=== PATIENT | female | born 1940 | race Caucasian/White ===

== ENCOUNTER → 2016-07-08 | Outpatient (CLI) | payer MEDICARE ==
--- NOTE | 2016-07-08 15:25 | NM ---
EXAMINATION TYPE: NM bone scan whole body DATE OF EXAM: 07/08/2016 3:18 PM COMPARISON: 07/09/2011 HISTORY: Back pain Delayed whole-body scanning was performed following the injection of 27 mCi Tc 99m MDP. Images acqui red 4 hours post injection. FINDINGS: There is mild stable increased uptake involving the left L1 and L2 pedicles. Degenerative uptake abou t the bilateral shoulders left greater than right. Intense uptake about the patella bilaterally right greater than left also unchanged. No evidence for new increased uptake at this time. Degenerative up take about the wrists and hands. IMPRESSION: Stable degenerative type uptake as discussed above without evidence for new Intense uptake to suggest osseous lesion or fracture.
== END | disposition home or self-care (01) ==
LOC: RADNMMAIN 10:26
PROVIDERS: ATTEND Internal Medicine Hematology & Oncology
DX: C50.919 Malignant neoplasm of unspecified site of unspecified female breast (principal); M54.9 Dorsalgia, unspecified
CPT/HCPCS: 78306; A9503

== ENCOUNTER → 2018-01-21 | Outpatient (CLI) | payer MEDICARE, OTHER ==
--- NOTE | 2018-01-21 17:51 | NM ---
EXAMINATION TYPE: NM bone scan whole body DATE OF EXAM: 01/21/2018 COMPARISON: NONE HISTORY: Breast cancer, back pain Delayed whole-body scanning was performed following the injection of 24.2 mCi Tc 99m MDP. Images wer e acquired 3 hours post injection. FINDINGS: There is increased uptake at the shoulders which can be related to degenerative change. Left shoulder is increasing in radiotracer uptake. There is abnormal pain in this region, plain film correlation b e recommended. Metastasis is not excluded. Increased uptake within the wrists is likely degenerative in nature. Uptake at bilateral patella is likely degenerative in nature. There is some focal radiotracer accumulation within the posterior lumbar spine in the region of L1 an d L2. Some uptake is in the right aspect of the more anterior L4 level. These areas are less specific . Metastatic disease at this level could be considered. This exam is compared to 07/08/2016. The uptak e within the posterior left lumbar spine and anterior right lower lumbar spine was present previously without significant change suggesting this is more likely a benign process. IMPRESSION: 1. Lumbar spine uptake discussed above appear similar to the 2017 comparison suggesting a more benign process. 2. Additional areas of degenerative uptake discussed above, present previously
== END | disposition home or self-care (01) ==
LOC: RADNMMAIN 10:29
PROVIDERS: ATTEND Internal Medicine Hematology & Oncology
DX: C50.812 Malignant neoplasm of overlapping sites of left female breast (principal); R93.7 Abnormal findings on diagnostic imaging of other parts of musculoskeletal system
CPT/HCPCS: 78306; A9503

== ENCOUNTER → 2018-02-24 | Outpatient (CLI) | payer MEDICARE, OTHER ==
--- NOTE | 2018-02-24 13:42 | XR ---
EXAMINATION TYPE: XR shoulder complete LT DATE OF EXAM: 02/24/2018 COMPARISON: NONE HISTORY: Pain TECHNIQUE: Three views are submitted. FINDINGS: The osseous structures are intact. There is no acute fracture or dislocation. Diffuse osteopenia not ed and there is arthropathy of the glenohumeral joint and AC joint. Near complete loss of joint space the glenohumeral joint. Apical pleural thickening is incidentally noted. IMPRESSION: 1. Severe arthropathy. Recommend follow-up MRI.
== END | disposition home or self-care (01) ==
LOC: RADXRMAIN 13:19
PROVIDERS: ATTEND Family Medicine
DX: M19.012 Primary osteoarthritis, left shoulder (principal)

== ENCOUNTER → 2019-05-24 | Outpatient (CLI) | payer MEDICARE, OTHER ==
--- NOTE | 2019-05-24 15:59 | US ---
EXAMINATION TYPE: US venous doppler duplex UE LT DATE OF EXAM: 05/24/2019 COMPARISON: NONE CLINICAL HISTORY: R60.0 Edema - Left upper extremity. SIDE PERFORMED: LEFT IJV, SUBCLAVIAN, AXILLA, BRACHIAL, BASILIC, & CEPHALIC VEINS scanned. Left Arm: Negative for DVT Grayscale, color doppler, spectral doppler imaging performed of the deep veins of the left upper extr emity. There is normal flow, compressibility and vascular waveforms IMPRESSION: No sonographic evidence of deep venous thrombosis within the visualized left upper extrem ity. .
== END | disposition home or self-care (01) ==
LOC: RADUSWWP 15:17
PROVIDERS: ATTEND Family Medicine
DX: R60.0 Localized edema (principal)

== ENCOUNTER → 2020-01-12 | Outpatient (CLI) | payer MEDICARE, OTHER ==
--- NOTE | 2020-01-13 07:33 | NM ---
EXAMINATION TYPE: NM bone scan whole body DATE OF EXAM: 01/12/2020 COMPARISON: Whole body bone scan January 21, 2018. HISTORY: History of breast cancer. Delayed whole-body scanning was performed following the injection of 23.4 mCi Tc 99m MDP. Images acq uired 3 hours post injection. Whole body images in anterior posterior projection along with additiona l images of the neck thorax abdomen and upper pelvis and multiple oblique projections. FINDINGS: Stable increased radiotracer uptake left greater than right shoulders. New extravasation right cubita l fossa on current study. Persistent focal increased radiotracer uptake within the lumbar spine similar to prior. Normal excretion is seen. Mild uptake at level of knee joint is presumed degenerative in etiology. No new areas of suspicious increased radiotracer uptake. IMPRESSION: As above. Findings most likely on basis of degenerative change. CT chest 2014 and left sh oulder x-ray confirm advanced degenerative change left glenohumeral joint.
== END | disposition home or self-care (01) ==
LOC: RADNMMAIN 11:28
PROVIDERS: ATTEND Internal Medicine Hematology & Oncology
DX: M19.012 Primary osteoarthritis, left shoulder (principal); C50.312 Malignant neoplasm of lower-inner quadrant of left female breast; Z91.041 Radiographic dye allergy status
CPT/HCPCS: 78306; A9503

== ENCOUNTER 2021-02-26 16:32 | Inpatient (IN) | payer MEDICARE, OTHER ==
[2021-02-26] MEDS ORDERED: SODIUM CHLORIDE 0.9% 500 ML 500 ML IV STA (19:50)
[2021-02-26] MEDS ORDERED: AMPICILLIN-SULBACTAM 3 GM in SODIUM CHLORIDE 0.9% 100 ML IVPB STA (19:52)
--- NOTE | 2021-02-26 20:01 | ED ---
Skin/Abscess/FB HPI - General Chief complaint: Skin/Abscess/Foreign Body Stated complaint: lt arm infection Time Seen by Provider: 02/26/21 19:39 Source: patient, RN notes reviewed, old records reviewed Mode of arrival: ambulatory Limitations: no limitations - History of Present Illness Initial comments: Patient is an 80-year-old female, with history of COPD, hypertension, breast cancer, presenting to the emergency Department with complaints of a possible infection in her left arm. Patient states about one week ago she had a small skin tear on her left forearm, she thought it was healing okay. And then about 2-3 days ago her cat did have a small bite wound on her left forearm as well. She states today she noticed redness of her left arm extending up into the left side of her chest. 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 She is having some achiness of her left arm but no significant pain. She does have chronic left shoulder pain. She denies any fevers or chills. She did have an episode of nausea and vomiting this morning, her appetite has been lower today. She denies any chest pains or shortness of breath, no nausea at this time. She denies any headaches or blurry vision. She has no further complaints at this time. Upon arrival to the ER, her vitals are stable. - Related Data Home Medications Medication Instructions Recorded Confirmed Acetaminophen Tab [Tylenol Tab] 500 mg PO Q6H PRN 02/26/21 02/26/21 Allergies Allergy/AdvReac Type Severity Reaction Status Date / Time Iodinated Contrast Media Allergy Anaphylaxis Verified 02/26/21 20:51 [Iodinated Contrast Media - IV Dye] Tetracyclines Allergy Swelling Verified 02/26/21 20:51 venom-honey bee Allergy Rash/Hives Verified 02/26/21 20:51 [bee venom (honey bee)] primidone [From Mysoline] AdvReac Unknown Verified 02/26/21 20:51 Review of Systems ROS Statement: Those systems with pertinent positive or pertinent negative responses have been documented in the HPI. ROS Other: All systems not noted in ROS Statement are negative. Past Medical History Past Medical History: COPD, Hypertension Additional Past Medical History / Comment(s): breast cancer r breast 1993, left breast cancer 1999, chronic pulmonary edema History of Any Multi-Drug Resistant Organisms: None Reported Past Surgical History: Hysterectomy, Joint Replacement Additional Past Surgical History / Comment(s): bilateral mastectomy Past Psychological History: No Psychological Hx Reported Past Alcohol Use History: None Reported Past Drug Use History: None Reported General Exam - General Exam Comments Initial Comments: GENERAL: Patient is well-developed and well-nourished. Patient is nontoxic and in no acute distress. HEAD: Atraumatic, normocephalic. EYES: Pupils equal round and reactive to light, extraocular movements intact, sclera anicteric, conjunctiva are normal. Eyelids were unremarkable. ENT: Nares patent, oropharynx clear without exudates. Moist mucous membranes. NECK: Normal range of motion, supple without lymphadenopathy or JVD. LUNGS: Unlabored respirations. Breath sounds clear to auscultation bilaterally and eq ual. No wheezes rales or rhonchi. HEART: Regular rate and rhythm without murmurs, rubs or gallops. ABDOMEN: Soft, nontender, normoactive bowel sounds. No guarding, no rebound. No masses appreciated. : Deferred MUSCULOSKELETAL: Limited range of motion of the left shoulder secondary to chronic shoulder pain, chronic lymphedema of the left arm. [employer] Trapper strength is normal bilaterally. Neurovascular intact I lateral upper extremities. Rest of extremities with adequate strength and normal range of motion, no pitting or edema. No clubbing or cyanosis. NEUROLOGICAL: Patient is alert and oriented x 3. Motor and sensory are also intact. Cranial nerves II through XII grossly intact. Symmetrical smile. Normal speech, normal gait. PSYCH: Normal mood, normal affect. SKIN: Warm, Dry, normal turgor. Patient has significant erythema/warmth of the entire left arm extending up into the left shoulder and left chest. No open or draining wounds. There is a small cat bite wound to the left forearm however this is not open, no drainage. Limitations: no limitations Course Vital Signs 02/26/21 17:49 Temperature 98.2 F Pulse Rate 96 Respiratory 20 Rate Blood Pressure 146/76 O2 Sat by Pulse 97 Oximetry Medical Decision Making - Medical Decision Making Patient is an 80-year-old female with history of hypertension, COPD, chronic left upper extremity lymphedema secondary to breast cancer, presenting with an infection in the left arm secondary to possible Bite wound that happened 3-4 days ago. Vitals are stable, no fevers. Single episode of nausea and vomiting this morning. Patient has significant erythema and warmth of the entire left upper extremity and extends into the left side of the chest as well. Labs show a white count of 21,000, CRP 6.1, ESR is 28. Patient will be admitted for left arm cellulitis from cat bite. I did start patient on Unasyn for the cellulitis secondary to cat bite. Patient was also given some Zofran and fluids. Patient accepted by [facility] for Dr. Cali's group. Consult to infectious disease. Case discussed with Dr. Canela. - Lab Data Result diagrams: 02/26/21 19:58 02/26/21 19:58 Lab Results 02/26/21 02/26/21 02/26/21 Range/Units 19:58 19:58 19:58 WBC 21.9 H (3.8-10.6) k/uL RBC 4.79 (3.80-5.40) m/uL Hgb 13.6 (11.4-16.0) gm/dL Hct 42.6 (34.0-46.0) % MCV 89.1 (80.0-100.0) fL MCH 28.4 (25.0-35.0) pg MCHC 31.9 (31.0-37.0) g/dL RDW 13.5 (11.5-15.5) % Plt Count 321 (150-450) k/uL MPV 7.2 Neutrophils % 90 % Lymphocytes % 7 % Monocytes % 3 % Eosinophils % 0 % Basophils % 0 % Neutrophils # 19.6 H (1.3-7.7) k/uL Lymphocytes # 1.5 (1.0-4.8) k/uL Monocytes # 0.6 (0-1.0) k/uL Eosinophils # 0.1 (0-0.7) k/uL Basophils # 0.0 (0-0.2) k/uL ESR 28 H (0-20) mm/hr Sodium 136 L (137-145) mmol/L Potassium 4.0 (3.5-5.1) mmol/L Chloride 100 (98-107) mmol/L Carbon Dioxide 27 (22-30) mmol/L Anion Gap 9 mmol/L BUN 24 H (7-17) mg/dL Creatinine 0.71 (0.52-1.04) mg/dL Est GFR (CKD-EPI)AfAm >90 (>60 ml/min/1.73 sqM) Est GFR (CKD-EPI)NonAf 81 (>60 ml/min/1.73 sqM) Glucose 136 H (74-99) mg/dL Plasma Lactic Acid Chase 1.4 (0.7-2.0) mmol/L Calcium 9.8 (8.4-10.2) mg/dL Total Bilirubin 0.9 (0.2-1.3) mg/dL AST 38 H (14-36) U/L ALT 17 (4-34) U/L Alkaline Phosphatase 95 (38-126) U/L C-Reactive Protein 6.1 H (<1.0) mg/dL Total Protein 8.0 (6.3-8.2) g/dL Albumin 4.3 (3.5-5.0) g/dL Coronavirus (PCR) (Not Detectd) 02/26/21 Range/Units 19:58 WBC (3.8-10.6) k/uL RBC (3.80-5.40) m/uL Hgb (11.4-16.0) gm/dL Hct (34.0-46.0) % MCV (80.0-100.0) fL MCH (25.0-35.0) pg MCHC (31.0-37.0) g/dL RDW (11.5-15.5) % Plt Count (150-450) k/uL MPV Neutrophils % % Lymphocytes % % Monocytes % % Eosinophils % % Basophils % % Neutrophils # (1.3-7.7) k/uL Lymphocytes # (1.0-4.8) k/uL Monocytes # (0-1.0) k/uL Eosinophils # (0-0.7) k/uL Basophils # (0-0.2) k/uL ESR (0-20) mm/hr Sodium (137-145) mmol/L Potassium (3.5-5.1) mmol/L Chloride (98-107) mmol/L Carbon Dioxide (22-30) mmol/L Anion Gap mmol/L BUN (7-17) mg/dL Creatinine (0.52-1.04) mg/dL Est GFR (CKD-EPI)AfAm (>60 ml/min/1.73 sqM) Est GFR (CKD-EPI)NonAf (>60 ml/min/1.73 sqM) Glucose (74-99) mg/dL Plasma Lactic Acid Chase (0.7-2.0) mmol/L Calcium (8.4-10.2) mg/dL Total Bilirubin (0.2-1.3) mg/dL AST (14-36) U/L ALT (4-34) U/L Alkaline Phosphatase (38-126) U/L C-Reactive Protein (<1.0) mg/dL Total Protein (6.3-8.2) g/dL Albumin (3.5-5.0) g/dL Coronavirus (PCR) Not Detected (Not Detectd) Disposition Clinical Impression: Cellulitis of left upper extremity, Cat bite of left forearm Disposition: ADMITTED IP TO THIS HOSP Condition: Stable Decision Date: 02/26/21 Decision Time: 20:48
[2021-02-26 20:37] LABS: Basophils % (A) 0 %; Eosinophils # (A) 0.1 k/uL (0-0.7); Eosinophils % (A) 0 %; HCT 42.6 % (34.0-46.0); HGB 13.6 gm/dL (11.4-16.0); Lymphocytes # (A) 1.5 k/uL (1.0-4.8); Lymphocytes % (A) 7 %; MCH 28.4 pg (25.0-35.0); MCHC 31.9 g/dL (31.0-37.0); MCV 89.1 fL (80.0-100.0); Mean Platelet Volume 7.2; Monocytes # (A) 0.6 k/uL (0-1.0); Monocytes % (A) 3 %; Neutrophils # (A) 19.6 k/uL (1.3-7.7); Neutrophils % (A) 90 %; Platelet Count 321 k/uL (150-450); RBC 4.79 m/uL (3.80-5.40); RDW 13.5 % (11.5-15.5); WBC 21.9 k/uL (3.8-10.6)
[2021-02-26] MEDS ORDERED: NALOXONE 0.4 MG/ML 1 ML VIAL IV PRN (20:43)
[2021-02-26] MEDS ORDERED: ACETAMINOPHEN TAB 325 MG TAB PO PRN (20:43)
[2021-02-26 20:50] LABS: ALT 17 U/L (4-34); AST 38 U/L (14-36); African American GFR (CKD) >90 (>60 ml/min/1.73 sqM); Albumin 4.3 g/dL (3.5-5.0); Alkaline Phosphatase 95 U/L (38-126); Anion Gap 9 mmol/L; Blood Urea Nitrogen 24 mg/dL (7-17); C Reactive Protein 6.1 mg/dL (<1.0); Calcium 9.8 mg/dL (8.4-10.2); Carbon Dioxide 27 mmol/L (22-30); Chloride 100 mmol/L (98-107); Glucose 136 mg/dL (74-99); Non-African American GFR(CKD) 81 (>60 ml/min/1.73 sqM); Sodium 136 mmol/L (137-145); Total Bilirubin 0.9 mg/dL (0.2-1.3)
[2021-02-26 21:32] LABS: Erythrocyte Sedimentation Rate 28 mm/hr (0-20)
[2021-02-26] MEDS: SODIUM CHLORIDE 0.9% 1,000 ML IV SCH (22:25)
[2021-02-27] MEDS: ONDANSETRON 4 MG/2 ML VIAL IVP PRN ×2 (02:06→14:50)
[2021-02-27] MEDS: HYDROcodone/APAP 5-325MG 1 EACH TAB PO PRN (02:06)
[2021-02-27] MEDS: AMPICILLIN-SULBACTAM 3 GM in SODIUM CHLORIDE 0.9% 100 ML IVPB SCH ×4 (03:27→21:28)
[2021-02-27] MEDS: SODIUM CHLORIDE 0.9% 1,000 ML IV SCH ×2 (07:31→17:23)
[2021-02-27 12:21] LABS: Basophils % (A) 0 %; Eosinophils % (A) 0 %; HCT 42.7 % (34.0-46.0); HGB 13.7 gm/dL (11.4-16.0); Lymphocytes # (A) 1.6 k/uL (1.0-4.8); Lymphocytes % (A) 11 %; MCH 28.5 pg (25.0-35.0); MCHC 32.1 g/dL (31.0-37.0); MCV 88.8 fL (80.0-100.0); Mean Platelet Volume 7.2; Monocytes # (A) 0.4 k/uL (0-1.0); Monocytes % (A) 3 %; Neutrophils # (A) 12.4 k/uL (1.3-7.7); Neutrophils % (A) 85 %; Platelet Count 295 k/uL (150-450); RBC 4.81 m/uL (3.80-5.40); RDW 13.9 % (11.5-15.5); WBC 14.5 k/uL (3.8-10.6)
[2021-02-27] MEDS: MORPHINE SULFATE 2 MG/ML SYRINGE IV PRN (14:55)
[2021-02-27 15:38] LABS: African American GFR (CKD) >90 (>60 ml/min/1.73 sqM); Anion Gap 10 mmol/L; Blood Urea Nitrogen 18 mg/dL (7-17); Calcium 9.3 mg/dL (8.4-10.2); Carbon Dioxide 25 mmol/L (22-30); Chloride 106 mmol/L (98-107); Glucose 114 mg/dL (74-99); Non-African American GFR(CKD) 87 (>60 ml/min/1.73 sqM); Sodium 141 mmol/L (137-145)
[2021-02-27] MEDS: HEPARIN SODIUM,PORCINE/PF 5,000 UNIT/0.5 ML SYRINGE SQ SCH (21:28)
--- NOTE | 2021-02-28 00:50 | P.HPIM ---
History of Present Illness H&P Date: 02/27/21 Patient is a 80-year-old female with a known history of hypertension, COPD, history of breast cancer status post bilateral mastectomy presents to ER with the complaints of left arm swelling redness and pain. Patient states that about a 1 week ago patient had a small skin tear on her left forearm and during the last 2 to 3 days patient had a small bite by her cat on the left forearm as well. Since then patient has been having worsening redness and swelling. Patient does have chronic left arm lymphedema secondary to left breast cancer with left axillary lymph node removal. Otherwise denied any complaints of fever or chills. No nausea vomiting or abdominal pain or diarrhea. Denied any other recent illnesses. No cough or sputum production. Lab data showed WBC 21.9 and hemoglobin 13.6 and platelets 321 Sodium 136 potassium 4.0 chloride 100 BUN 24 and creatinine 0.71 blood sugar is 136 AST 38 ALT 17 and alk phos 95. CRP 6.1 and coronavirus PCR not detected. Review of Systems Constitutional: Patient denies any fever or chills . No generalized weakness or weight loss. Abdomen: Patient denied nausea vomiting and diarrhea and abdominal pain. Cardiovascular: Patient denies any chest pain or short of breath no palpitations. Respiratory: patient denied any cough or sputum production. No shortness of breath Neurologic: Patient denied any numbness or tingling headache. Musculoskeletal: Patient denies any complaints of joint swelling or deformity. Skin: Left forearm pain and redness. Psychiatric: Negative Endocrine: No heat or cold intolerance. No recent weight gain. Genitourinary: No dysuria or hematuria. All other 14 point ROS negative except the above Past Medical History Past Medical History: COPD, Hypertension Additional Past Medical History / Comment(s): breast cancer r breast 1993, left breast cancer 1999, chronic pulmonary edema History of Any Multi-Drug Resistant Organisms: None Reported Past Surgical History: Hysterectomy, Joint Replacement Additional Past Surgical History / Comment(s): bilateral mastectomy Past Psychological History: No Psychological Hx Reported Past Alcohol Use History: None Reported Past Drug Use History: None Reported Medications and Allergies Home Medications Medication Instructions Recorded Confirmed Type Acetaminophen Tab [Tylenol Tab] 500 mg PO Q6H PRN 02/26/21 02/26/21 History Allergies Allergy/AdvReac Type Severity Reaction Status Date / Time Iodinated Contrast Media Allergy Anaphylaxis Verified 02/26/21 20:51 [Iodinated Contrast Media - IV Dye] Tetracyclines Allergy Swelling Verified 02/26/21 20:51 venom-honey bee Allergy Rash/Hives Verified 02/26/21 20:51 [bee venom (honey bee)] primidone [From Mysoline] AdvReac Unknown Verified 02/26/21 20:51 Physical Exam Vitals: Vital Signs Temp Pulse Resp BP Pulse Ox 02/27/21 11:04 97.6 F 76 16 124/62 95 02/27/21 07:32 97.9 F 02/27/21 06:58 77 18 119/58 94 L 02/27/21 01:52 92 18 143/75 94 L 02/26/21 17:49 98.2 F 96 20 146/76 97 Intake and Output 02/26/21 02/27/21 02/27/21 22:59 06:59 14:59 Other: Weight 74.843 kg PHYSICAL EXAMINATION: Patient is lying in the bed comfortably, no acute distress, awake alert and oriented.. HEENT: Normocephalic. Neck is supple. Pupils reactive. Nostrils clear. Oral cavity is moist. Neck reveals no JVD, carotid bruits, or thyromegaly. CHEST EXAMINATION: Trachea is central. Symmetrical expansion. Lung neely clear to auscultation and percussion. CARDIAC: Normal S1, S2 with no gallops. No murmurs ABDOMEN: Soft. Bowel sounds normal. No organomegaly. No abdominal bruits. Extremities: reveal no edema. No clubbing or cyanosis Neurologically awake, alert, oriented x3 with well-coordinated movements. No focal deficits noted Skin: Patient does have erythema around the left forearm and elbow region. Does have chronic lymphedema of the left forearm. No purulent drainage. Small cat bite wound on the left forearm noted.. Psychiatric: Cooperative. Nonsuicidal Musculoskeletal: No joint swelling or deformity. Normal range of motion. Results CBC & Chem 7: 02/27/21 11:54 02/27/21 11:54 Labs: Abnormal Lab Results - Last 24 Hours (Table) 02/26/21 02/26/21 Range/Units 19:58 19:58 WBC 21.9 H (3.8-10.6) k/uL Neutrophils # 19.6 H (1.3-7.7) k/uL ESR 28 H (0-20) mm/hr Sodium 136 L (137-145) mmol/L BUN 24 H (7-17) mg/dL Glucose 136 H (74-99) mg/dL AST 38 H (14-36) U/L C-Reactive Protein 6.1 H (<1.0) mg/dL Thrombosis Risk Factor Assmnt - DVT/VTE Prophylaxis DVT/VTE Prophylaxis: Pharmacologic Prophylaxis ordered Assessment and Plan Assessment: Left forearm extensive cellulitis Sepsis secondary to cellulitis Cat bite/scratch 2 days ago Chronic left upper extremity lymphedema History of breast cancer status postmastectomy Hypertension COPD DVT prophylaxis Plan: Patient will be current on IV hydration and antibiotics in the form of Unasyn. Follow-up blood cultures. Continue with pain management with Tylenol. Monitor CBC and BMP tomorrow. Time with Patient: Greater than 30
[2021-02-28] MEDS: HYDROcodone/APAP 5-325MG 1 EACH TAB PO PRN ×2 (01:24→21:54)
[2021-02-28] MEDS: AMPICILLIN-SULBACTAM 3 GM in SODIUM CHLORIDE 0.9% 100 ML IVPB SCH ×4 (04:40→20:06)
[2021-02-28] MEDS: SODIUM CHLORIDE 0.9% 1,000 ML IV SCH ×3 (04:55→23:26)
[2021-02-28 06:37] LABS: Basophils % (A) 0 %; Eosinophils # (A) 0.1 k/uL (0-0.7); Eosinophils % (A) 1 %; HCT 35.3 % (34.0-46.0); HGB 11.2 gm/dL (11.4-16.0); Lymphocytes # (A) 1.6 k/uL (1.0-4.8); Lymphocytes % (A) 17 %; MCH 28.7 pg (25.0-35.0); MCHC 31.7 g/dL (31.0-37.0); MCV 90.6 fL (80.0-100.0); Mean Platelet Volume 7.7; Monocytes # (A) 0.5 k/uL (0-1.0); Monocytes % (A) 5 %; Neutrophils # (A) 6.9 k/uL (1.3-7.7); Neutrophils % (A) 75 %; Platelet Count 264 k/uL (150-450); RDW 13.7 % (11.5-15.5); WBC 9.2 k/uL (3.8-10.6)
--- NOTE | 2021-02-28 08:33 | US ---
EXAMINATION TYPE: US venous doppler duplex UE LT DATE OF EXAM: 02/28/2021 COMPARISON: US 2019 CLINICAL HISTORY: swelling. Redness and swelling left arm- pt states she was scratched and bit by her cat left arm SIDE PERFORMED: Left Grayscale, color Doppler, spectral Doppler imaging performed of the deep veins of the left upper stom ach. Visualized left internal jugular vein, subclavian vein, axillary vein, brachial vein, cephalic a nd radial veins compress normally and show no abnormal luminal echoes. There are subcutaneous edema c hannels noted in the left arm. Left Arm: Negative for DVT, unable to visualize left basilic and ulnar veins due to pt unable to move left arm IMPRESSION: No evident deep venous thrombosis in the left upper extremity, there are limitations as described
[2021-02-28] MEDS: HEPARIN SODIUM,PORCINE/PF 5,000 UNIT/0.5 ML SYRINGE SQ SCH ×2 (09:24→20:06)
--- NOTE | 2021-02-28 11:12 | P.CONS ---
History of Present Illness - Reason for Consult Consult date: 02/27/21 left arm cellulitis Requesting physician: Marco Renteria - Chief Complaint left arm swelling and redness x days - History of Present Illness History of Present Illness : Patient is 80-year-old female with a past medical history difficult for COPD breast cancer presenting to the ER yesterday for evaluation of left upper extremity swelling and redness that have been getting worse over the last few days patient did mention her cat he did nibble on the left forearm and the 2 small skin tear however she did have redness even prior to that subsequently she noted redness to start getting worse and did have more swelling to the left arm patient did have some dull aching pain 4-5 out of 10 in radiation with the symptom the patient was evaluated by the ER physician on arrival to the ER patient was afebrile patient did have white count of 21 point 9 repeat is 14.5 with a left shift creatinine has been normal patient has been started on Unasyn infectious he was consulted for further management of antibiotic therapy Review of system: CONSTITUTIONAL: Positive for weakness low-grade fever. EYES: No complaint. ENT: No complaint. RESPIRATORY: No complaint. CARDIOVASCULAR: No complaint. GENITOURINARY: No complaint. GASTROINTESTINAL: No complaint. MUSCULOSKELETAL: No complaint. INTEGUMENTARY : As per history of present illness. PSYCHOLOGIC: No complaint. ENDOCRINE: No complaint. NEUROLOGIC: No complaint. Past medical history : Reviewed, documented below Past surgical history : Reviewed, documented below Social history: Reviewed, documented below Medications: Reviewed, as documented below EXAMINATION: Vital sigans= Reviewed and documented below GENERAL DESCRIPTION: Elderly female lying in bed, no distress. No tachypnea or accessory muscle of respiration use. HEENT: Shows Pallor , no scleral icterus. Oral mucous membrane is dry. NECK: Trachea central, no thyromegaly. LUNGS: Unlabored breathing. Clear to auscultation anteriorly. No wheeze or crackle. HEART: S1, S2, regular rate and rhythm. ABDOMEN: Soft, no tenderness , guarding or rigidity EXTREMITIES: No edema feet SKIN: Extensive swelling redness of the left upper extremity which is warm to touch no evidence of any skin breakdown or drainage NEUROLOGICAL: The patient is awake, alert, oriented x3, mood and affect normal. LABS AND RADIOLOGY: Reviewed results see below Assessment : Patient presented hospital with extensive left upper extremity cellulitis in this patient who did have lymphedema to the left upper extremity and history of breast cancer more likely the risk factor patient may have small's bite on the left arm forearm from her cat but she did have redness prior to that and will need to cover for the gram-positive skin oli to be the likely pathogen Plan: 1-Unasyn 3 g every 6 hours to continue 2-keep the left arm elevated 3-await the ultrasound of the left upper extremity We will follow on clinical condition and cultures to further adjust medication if needed Thank you for this consultation we will follow the patient along with you Past Medical History Past Medical History: COPD, Hypertension Additional Past Medical History / Comment(s): breast cancer r breast 1993, left breast cancer 1999, chronic pulmonary edema, right breast removed in 1993, left breast removed 2011 History of Any Multi-Drug Resistant Organisms: None Reported Past Surgical History: Cholecystectomy, Hysterectomy, Joint Replacement Additional Past Surgical History / Comment(s): bilateral mastectomy, bilater knee replacement Past Psychological History: No Psychological Hx Reported Smoking Status: Never smoker Past Alcohol Use History: None Reported Past Drug Use History: None Reported Medications and Allergies Home Medications Medication Instructions Recorded Confirmed Type Acetaminophen Tab [Tylenol Tab] 500 mg PO Q6H PRN 02/26/21 02/26/21 History Allergies Allergy/AdvReac Type Severity Reaction Status Date / Time Iodinated Contrast Media Allergy Anaphylaxis Verified 02/26/21 20:51 [Iodinated Contrast Media - IV Dye] Tetracyclines Allergy Swelling Verified 02/26/21 20:51 venom-honey bee Allergy Rash/Hives Verified 02/26/21 20:51 [bee venom (honey bee)] primidone [From Mysoline] AdvReac Unknown Verified 02/26/21 20:51 Physical Exam Vitals: Vital Signs Temp Pulse Resp BP Pulse Ox 02/27/21 11:04 97.6 F 76 16 124/62 95 02/27/21 07:32 97.9 F 02/27/21 06:58 77 18 119/58 94 L 02/27/21 01:52 92 18 143/75 94 L Intake and Output 02/27/21 02/27/21 02/27/21 06:59 14:59 22:59 Other: Voiding Method Toilet Diaper Weight 74.843 kg Results CBC & Chem 7: 02/28/21 05:47 02/27/21 11:54 Labs: Abnormal Lab Results - Last 24 Hours (Table) 02/27/21 02/27/21 Range/Units 11:54 11:54 WBC 14.5 H (3.8-10.6) k/uL Neutrophils # 12.4 H (1.3-7.7) k/uL BUN 18 H (7-17) mg/dL Glucose 114 H (74-99) mg/dL Microbiology - Last 24 Hours (Table) 02/26/21 19:58 Blood Culture - Preliminary Blood No Growth after 24 hours
--- NOTE | 2021-02-28 14:57 | PN ---
PROGRESS NOTE DATE OF SERVICE: 02/28/2021 REASON FOR FOLLOWUP: Left upper extremity cellulitis. INTERVAL HISTORY: Patient is afebrile. The patient is breathing comfortably. Denies having any chest pain, shortness of breath, cough. Left upper extremity swelling has slightly decreased. No abdominal pain or diarrhea. PHYSICAL EXAMINATION: Blood pressure 143/79 with pulse of 80, temperature 98.1. She is 92% on room air. General description is an elderly female up in the chair in no distress. Respiratory system: Unlabored breathing, clear to auscultation anteriorly. Heart S1, S2. Regular rate and rhythm. Abdomen soft, no tenderness. Left upper extremity swelling and redness has decreased. LABORATORY DATA: Hemoglobin 11.1, white count 9.0. was negative for DVT. DIAGNOSTIC IMPRESSION AND PLAN: Patient with acute left lower extremity cellulitis. Patient had overall improvement on Unasyn to continue while monitoring clinical course closely and continue supportive care. MMODL / IJN: [id number] /
[2021-02-28] MEDS: ONDANSETRON 4 MG/2 ML VIAL IVP PRN (15:18)
[2021-02-28 17:10] LABS: African American GFR (CKD) 100.6 (60.0-200.0); Anion Gap 14.2 mmol/L (4.00-12.00); BUN/Creat Ratio 25.13 Ratio (12.00-20.00); Blood Urea Nitrogen 14.7 mg/dL (9.0-27.0); Calcium 8.3 mg/dL (8.7-10.3); Non-African American GFR(CKD) 86.8 (60.0-200.0); Potassium 3.9 mmol/L (3.5-5.5)
[2021-03-01] MEDS: MORPHINE SULFATE 2 MG/ML SYRINGE IV PRN (00:02)
[2021-03-01] MEDS: SODIUM CHLORIDE 0.9% 1,000 ML IV SCH (03:57)
[2021-03-01] MEDS: AMPICILLIN-SULBACTAM 3 GM in SODIUM CHLORIDE 0.9% 100 ML IVPB SCH ×3 (03:58→14:33)
[2021-03-01 04:52] VITALS: TEMP 98.2
[2021-03-01] MEDS: HEPARIN SODIUM,PORCINE/PF 5,000 UNIT/0.5 ML SYRINGE SQ SCH (08:19)
[2021-03-01 11:52] VITALS: BP 157/91; PULSE 79; RESP 18
--- NOTE | 2021-03-01 14:47 | PN ---
PROGRESS NOTE DATE OF SERVICE: 03/01/2021 REASON FOR FOLLOWUP: Left arm cellulitis. INTERVAL HISTORY: The patient is afebrile. The patient is currently breathing comfortably. Denies having any chest pain or shortness of breath or cough. No abdominal pain. Overall pain and discomfort to the left upper extremity has improved. PHYSICAL EXAMINATION: Blood pressure 157/99 with a pulse of 60, temperature 98.2. She is 93% on room air. General description is an elderly female lying in bed in no distress. RESPIRATORY SYSTEM: Unlabored breathing. Clear to auscultation anteriorly. HEART: S1, S2. Regular rate and rhythm. ABDOMEN: Soft. No tenderness. Left upper extremity redness has much improved LABS: White count normalized at 15. Blood cultures remain negative. DIAGNOSTIC IMPRESSION AND PLAN: Patient with a left upper extremity cellulitis clinically improved on Unasyn, to finish therapy with oral Augmentin x 7 days and close outpatient followup. MMODL / IJN: [id number] / MTDD
--- NOTE | 2021-03-18 23:25 | P.PN ---
Subjective Progress Note Date: 02/28/21 Patient is a 80-year-old female with a known history of hypertension, COPD, history of breast cancer status post bilateral mastectomy presents to ER with the complaints of left arm swelling redness and pain. Patient states that about a 1 week ago patient had a small skin tear on her left forearm and during the last 2 to 3 days patient had a small bite by her cat on the left forearm as well. Since then patient has been having worsening redness and swelling. Patient does have chronic left arm lymphedema secondary to left breast cancer with left axillary lymph node removal. Otherwise denied any complaints of fever or chills. No nausea vomiting or abdominal pain or diarrhea. Denied any other recent illnesses. No cough or sputum production. Lab data showed WBC 21.9 and hemoglobin 13.6 and platelets 321 Sodium 136 potassium 4.0 chloride 100 BUN 24 and creatinine 0.71 blood sugar is 136 AST 38 ALT 17 and alk phos 95. CRP 6.1 and coronavirus PCR not detected. 02/28/2021 Patient still having left arm swelling but improving. Venous duplex was ordered to rule out DVT which is negative. Patient is being cannula antibiotics IV as per ID recommendations. Patient has been afebrile. Appears to be more awake and oriented today. Patient does have chronic left upper extremity swelling from previous surgery. Redness is improved as well. No nausea vomiting or abdominal pain or diarrhea. No chest pain or shortness of breath. Current medications reviewed. Objective - Vital Signs Vital signs: Vital Signs Temp 98.3 F 02/28/21 20:26 Pulse 85 02/28/21 20:26 Resp 18 02/28/21 20:26 BP 164/94 02/28/21 20:26 Pulse Ox 98 02/28/21 20:26 Intake & Output 02/28/21 02/28/21 03/01/21 06:59 18:59 06:59 Intake Total 1400 Balance 1400 Intake: Intake, IV Titration 1400 Amount Ampicillin-Sulbactam 3 gm 200 In Sodium Chloride 0.9% 100 ml @ 200 mls/hr IVPB Q6H [facility] Rx#:[id number] Sodium Chloride 0.9% 1, 1200 000 ml @ 100 mls/hr IV . Q10H [facility] Rx#:[id number] Other: Voiding Method Toilet Toilet Diaper Diaper # Voids 2 1 - Exam PHYSICAL EXAMINATION: Patient is lying in the bed comfortably, no acute distress, awake alert and oriented.. HEENT: Normocephalic. Neck is supple. Pupils reactive. Nostrils clear. Oral cavity is moist. Neck reveals no JVD, carotid bruits, or thyromegaly. CHEST EXAMINATION: Trachea is central. Symmetrical expansion. Lung neely clear to auscultation and percussion. CARDIAC: Normal S1, S2 with no gallops. No murmurs ABDOMEN: Soft. Bowel sounds normal. No organomegaly. No abdominal bruits. Extremities: reveal no edema. No clubbing or cyanosis Neurologically awake, alert, oriented x3 with well-coordinated movements. No focal deficits noted Skin: Patient does have erythema around the left forearm and elbow region. Does have chronic lymphedema of the left forearm. No purulent drainage. Small cat bite wound on the left forearm noted.. Psychiatric: Cooperative. Nonsuicidal Musculoskeletal: No joint swelling or deformity. Normal range of motion. - Labs CBC & Chem 7: 02/28/21 05:47 02/28/21 05:47 Labs: Abnormal Lab Results - Last 24 Hours (Table) 02/28/21 02/28/21 Range/Units 05:47 05:47 Hgb 11.2 L (11.4-16.0) gm/dL Carbon Dioxide 19.0 L (21.6-31.8) mmol/L Anion Gap 14.20 H (4.00-12.00) mmol/L BUN/Creatinine Ratio 25.13 H (12.00-20.00) Ratio Calcium 8.3 L (8.7-10.3) mg/dL Microbiology - Last 24 Hours (Table) 02/26/21 19:58 Blood Culture - Preliminary Blood No Growth after 24 hours Assessment and Plan Assessment: Left forearm extensive cellulitis Sepsis secondary to cellulitis Cat bite/scratch 2 days ago Chronic left upper extremity lymphedema History of breast cancer status postmastectomy Hypertension COPD DVT prophylaxis Plan: Patient will be current on IV hydration and antibiotics in the form of Unasyn. Follow-up blood cultures. Continue with pain management with Tylenol. Monitor CBC and BMP tomorrow.
--- NOTE | 2021-03-18 23:27 | P.DS ---
Providers Date of admission: 02/26/21 21:16 Expected date of discharge: 03/01/21 Attending physician: Diaz Cali Consults: 02/26/21 20:44 Consult Physician Urgent Consulting Provider: Arturo Oliveira Consult Reason/Comments: Left arm cellulitis/cat bite Do you want consulting provider notified?: Yes Primary care physician: Last [facility] Course: Discharge diagnosis Left forearm extensive cellulitis Sepsis secondary to cellulitis Cat bite/scratch 2 days ago Chronic left upper extremity lymphedema History of breast cancer status postmastectomy Hypertension COPD DVT prophylaxis Hospital course Patient is a 80-year-old female with a known history of hypertension, COPD, history of breast cancer status post bilateral mastectomy presents to ER with the complaints of left arm swelling redness and pain. Patient states that about a 1 week ago patient had a small skin tear on her left forearm and during the last 2 to 3 days patient had a small bite by her cat on the left forearm as well. Since then patient has been having worsening redness and swelling. Patient does have chronic left arm lymphedema secondary to left breast cancer with left axillary lymph node removal. Otherwise denied any complaints of fever or chills. No nausea vomiting or abdominal pain or diarrhea. Denied any other recent illnesses. No cough or sputum production. Lab data showed WBC 21.9 and hemoglobin 13.6 and platelets 321 Sodium 136 potassium 4.0 chloride 100 BUN 24 and creatinine 0.71 blood sugar is 136 AST 38 ALT 17 and alk phos 95. CRP 6.1 and coronavirus PCR not detected. 02/28/2021 Patient still having left arm swelling but improving. Venous duplex was ordered to rule out DVT which is negative. Patient is being cannula antibiotics IV as per ID recommendations. Patient has been afebrile. Appears to be more awake and oriented today. Patient does have chronic left upper extremity swelling from previous surgery. Redness is improved as well. No nausea vomiting or abdominal pain or diarrhea. No chest pain or shortness of breath. 03/01/2021 Patient is currently resting in the bed comfortably. Left arm redness is much improved. No complaints of pain. No fever no chills. No other acute overnight issues. Doppler scan is negative for DVT. Patient is being continued on IV antibiotics and will be changed to by mouth and completed antibiotic course. Patient is cleared from ID standpoint. Discharge physical examination was done and vitals reviewed. Patient Condition at Discharge: Stable Plan - Discharge Summary Discharge Rx Participant: Yes New Discharge Prescriptions: New Amoxicillin/Potassium Clav [Augmentin 875-125 Tablet] 1 tab PO Q12HR 7 Days #14 tab Continue Acetaminophen Tab [Tylenol] 500 mg PO Q6H PRN PRN Reason: Pain Or Fever > 100.5 Discharge Medication List Acetaminophen Tab [Tylenol] 500 mg PO Q6H PRN 02/26/21 [History] Amoxicillin/Potassium Clav [Augmentin 875-125 Tablet] 1 tab PO Q12HR 7 Days #14 tab 03/01/21 [Rx] Follow up Appointment(s)/Referral(s): Last Horowitz DO [Primary Care Provider] - 03/05/21 11:00 am (You will see Gloria the [employer] if this appointment does not work please call and reschedule.) Arturo Oliveira MD [STAFF PHYSICIAN] - 03/12/21 2:45 pm Patient Instructions/Handouts: Amoxicillin/Clavulanate Potassium (By mouth), Animal Bite (DC), Cellulitis (DC) Discharge Disposition: HOME SELF-CARE
== END 2021-03-01 18:18 | disposition home or self-care (01) | DRG 872 ==
LOC: EC 16:32 → 5NMEDONC 21:16
PROVIDERS: ADMIT Hospitalist; ATTEND Hospitalist
DX: A41.9 Sepsis, unspecified organism (principal); L03.114 Cellulitis of left upper limb; L03.116 Cellulitis of left lower limb; G89.29 Other chronic pain; I10 Essential (primary) hypertension; I89.0 Lymphedema, not elsewhere classified; Z20.822 Contact with and (suspected) exposure to COVID-19; J44.9 Chronic obstructive pulmonary disease, unspecified; S51.852A Open bite of left forearm, initial encounter; W55.01XA Bitten by cat, initial encounter; Z85.3 Personal history of malignant neoplasm of breast; Z90.13 Acquired absence of bilateral breasts and nipples; Z90.710 Acquired absence of both cervix and uterus; Z96.653 Presence of artificial knee joint, bilateral
CPT/HCPCS: 36415; 80048; 80053; 83605; 85025; 85652; 86140; 87040; 87635; 96365; 99284

== ENCOUNTER → 2022-03-19 | Outpatient (CLI) | payer MEDICARE, OTHER ==
[2022-03-19 18:06] LABS: Basophils # (A) 0.03 X 10*3/uL (0.00-0.10); Basophils % (A) 0.5 %; Eosinophils # (A) 0.15 X 10*3/uL (0.04-0.35); Eosinophils % (A) 2.5 %; HCT 41.8 % (37.2-46.3); Immature Grans, Automated 0.3 %; Lymphocytes # (A) 1.59 X 10*3/uL (0.90-5.00); Lymphocytes % (A) 26.1 %; MCH 27.4 pg (27.0-32.0); MCHC 31.1 g/dL (32.0-37.0); MCV 88.2 fL (80.0-97.0); Mean Platelet Volume 9.6 fL (9.5-12.2); Monocytes # (A) 0.51 X 10*3/uL (0.20-1.00); Monocytes % (A) 8.4 %; NRBC Per 100 WBC 0 /100 WBCS (0.0-0.0); Neutrophils % (A) 62.2 %; Platelet Count 307 X 10*3/uL (140-440); RBC 4.74 X 10*6/uL (4.10-5.20)
[2022-03-19 18:37] LABS: African American GFR (CKD) 99.6 (60.0-200.0); Blood Urea Nitrogen 15.2 mg/dL (9.0-27.0); Carbon Dioxide 26.4 mmol/L (20.0-27.5); Potassium 4.4 mmol/L (3.5-5.5)
== END | disposition home or self-care (01) ==
LOC: LABPAT 13:34
PROVIDERS: ATTEND Obstetrics & Gynecology
DX: Z01.818 Encounter for other preprocedural examination (principal); I10 Essential (primary) hypertension; N81.11 Cystocele, midline; R94.31 Abnormal electrocardiogram [ECG] [EKG]
CPT/HCPCS: 80051; 82565; 84520; 85025; 87086; 93005

== ENCOUNTER → 2022-10-29 | Outpatient (CLI) | payer MEDICARE, OTHER ==
--- NOTE | 2022-10-31 11:00 | NM ---
EXAMINATION TYPE: NM DatScan Brain SPECT DATE OF EXAM: 10/29/2022 COMPARISON: NONE HISTORY: Tremors TECHNIQUE: 10 drops of Lugol's solution was administered 1 hour prior to injection as a thyroid bloc kanu agent. After the administration of 4.45 mCi I-123 Ioflupane DaTscan. Images obtained 3 hours p ost injection. SPECT images of the brain were acquired with axial and coronal reconstructions. FINDINGS: The axial SPECT images demonstrate normal background activity. Accounting for head tilt, t here appears to be slight asymmetrically blunted comma-shaped appearance of the right corpus striatum . IMPRESSION: Slightly blunted striatal activity on the right may indicate early changes of idiopathic Parkinson's disease or Parkinsonian syndrome.
== END | disposition home or self-care (01) ==
LOC: RADNMMAIN 11:10
PROVIDERS: ATTEND Psychiatry & Neurology Neurology
DX: R25.1 Tremor, unspecified (principal); R25.9 Unspecified abnormal involuntary movements
CPT/HCPCS: 78803; A9584

== ENCOUNTER → 2023-04-03 | Outpatient (CLI) | payer MEDICARE, OTHER ==
[~2023-04-03] MED LIST: SODIUM CHLORIDE 0.9% 500 ML 500 ML in EMPTY BAG 1 BAG IV PRN; ZOLEDRONIC ACID 5 MG in SODIUM CHLORIDE 0.9% 100 ML IV NR
== END ==
LOC: PROCWHC3 11:21
PROVIDERS: ATTEND Family Medicine
DX: M81.0 Age-related osteoporosis without current pathological fracture (principal)
CPT/HCPCS: 96365; J3489

== ENCOUNTER → 2023-06-06 | Outpatient (CLI) | payer MEDICARE, OTHER ==
[2023-06-06 18:25] LABS: Basophils # (A) 0.04 X 10*3/uL (0.00-0.10); Basophils % (A) 0.6 %; Eosinophils # (A) 0.13 X 10*3/uL (0.04-0.35); HCT 41.1 % (37.2-46.3); HGB 12.8 g/dL (12.0-15.0); Lymphocytes # (A) 1.35 X 10*3/uL (0.90-5.00); Lymphocytes % (A) 20.9 %; MCH 27.9 pg (27.0-32.0); MCHC 31.1 g/dL (32.0-37.0); MCV 89.7 FL (80.0-97.0); Mean Platelet Volume 9.5 FL (9.5-12.2); Monocytes # (A) 0.46 X 10*3/uL (0.20-1.00); Monocytes % (A) 7.1 %; NRBC Per 100 WBC 0 X 10*3/uL (0.00-0.01); Neutrophils # (A) 4.47 X 10*3/uL (1.80-7.70); Neutrophils % (A) 69.1 %; Platelet Count 288 X 10*3/uL (140-440); RBC 4.58 X 10*6/uL (4.10-5.20); RDW 14.2 % (11.5-14.5); WBC 6.47 X 10*3/uL (4.50-10.00)
[2023-06-07 03:24] LABS: Blood Urea Nitrogen 18.1 mg/dL (9.0-27.0); Carbon Dioxide 24.7 mmol/L (21.6-31.8); Chloride 104 mmol/L (96-109); Potassium 4.5 mmol/L (3.5-5.5); Sodium 142 mmol/L (135-145)
== END | disposition home or self-care (01) ==
LOC: LABWHC1 14:04
PROVIDERS: ATTEND Obstetrics & Gynecology
DX: Z01.812 Encounter for preprocedural laboratory examination (principal); N81.11 Cystocele, midline; I10 Essential (primary) hypertension; R94.31 Abnormal electrocardiogram [ECG] [EKG]
CPT/HCPCS: 36415; 80051; 82565; 84520; 85025; 86850; 86900; 86901; 87077; 87086; 87186; 93005

== ENCOUNTER 2023-07-16 17:23 | Inpatient (IN) | payer MEDICARE, OTHER ==
--- NOTE | 2023-07-16 17:59 | ED ---
Fall HPI - General Chief Complaint: Fall Stated Complaint: Fall Time Seen by Provider: 07/16/23 17:26 Source: patient, EMS, RN notes reviewed, old records reviewed Mode of arrival: EMS Limitations: no limitations - History of Present Illness Initial Comments: This is a 82-year-old female poor story and was found down patient is a poor historian secondary to clinical condition and unable to provide history secondary to decreased ability to get up after a fall today. 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 Witnessed: no Place Fall Occurred: home Loss of Consciousness: none Prolonged Down Time?: no Symptoms Prior to Fall: none Severity: severe Severity scale (1-10): 7 Context: tripped/slipped Associated Symptoms: denies - Related Data Previous Rx's Medication Instructions Recorded Acetaminophen Tab [Tylenol] 650 mg PO Q6HR PRN tab 07/21/23 Aspirin 81 mg PO DAILY tab 07/21/23 Atorvastatin [Lipitor] 40 mg PO DAILY tab 07/21/23 Capsaicin Cream [Trixaicin Cream] 1 applic TOPICAL QID each 07/21/23 Clopidogrel [Plavix] 75 mg PO DAILY tab 07/21/23 Nitroglycerin Sl Tabs [Nitrostat] 0.4 mg SUBLINGUAL Q5M PRN tab 07/21/23 lisinopriL [Zestril] 5 mg PO DAILY tab 07/21/23 Allergies Allergy/AdvReac Type Severity Reaction Status Date / Time amlodipine Allergy Nausea Verified 07/16/23 20:01 carbidopa [From Sinemet] Allergy Unknown Verified 07/16/23 20:01 chlorthalidone Allergy Swelling Verified 07/16/23 20:01 of arm clonidine Allergy sweliing Verified 07/16/23 20:01 Iodinated Contrast Media Allergy Anaphylaxis Verified 07/16/23 20:01 [Iodinated Contrast Media - IV Dye] levodopa [From Sinemet] Allergy Unknown Verified 07/16/23 20:01 metoprolol Allergy Swelling Verified 07/16/23 20:01 left arm, nauea, sore throat pilocarpine Allergy Rash/Hives Verified 07/16/23 20:01 Tetracyclines Allergy Swelling Verified 07/16/23 20:01 venom-honey bee Allergy Rash/Hives Verified 07/16/23 20:01 [bee venom (honey bee)] furosemide [From Lasix] AdvReac Nausea & Verified 07/16/23 20:01 Vomiting primidone [From Mysoline] AdvReac Unknown Verified 07/16/23 20:01 ropinirole [From Requip] AdvReac Nausea & Verified 07/16/23 20:01 Vomiting Review of Systems ROS Statement: Those systems with pertinent positive or pertinent negative responses have been documented in the HPI. ROS Other: All systems not noted in ROS Statement are negative. Past Medical History Past Medical History: COPD, Hypertension Additional Past Medical History / Comment(s): breast cancer r breast 1993, left breast cancer 1999, chronic pulmonary edema, right breast removed in 1993, left breast removed 2011, Parkinsons History of Any Multi-Drug Resistant Organisms: None Reported Past Surgical History: Cholecystectomy, Hysterectomy, Joint Replacement Additional Past Surgical History / Comment(s): bilateral mastectomy, bilater knee replacement Past Psychological History: No Psychological Hx Reported Smoking Status: Never smoker Past Alcohol Use History: None Reported Past Drug Use History: None Reported - Past Family History Mother Family Medical History: Cancer (Breast cancer and a tumor behind her eye) Father Family Medical History: Cancer (Stomach cancer) Sister(s) Family Medical History: Cancer (Breast cancer) General Exam Limitations: altered mental status General appearance: alert, in no apparent distress, anxious, lethargic Head exam: Present: atraumatic, normocephalic, normal inspection Eye exam: Present: normal appearance, PERRL, EOMI. Absent: scleral icterus, conjunctival injection, periorbital swelling ENT exam: Present: normal exam, mucous membranes moist Neck exam: Present: normal inspection. Absent: tenderness, meningismus, lymphadenopathy Respiratory exam: Present: normal lung sounds bilaterally. Absent: respiratory distress, wheezes, rales, rhonchi, stridor Cardiovascular Exam: Present: regular rate, normal rhythm, normal heart sounds. Absent: systolic murmur, diastolic murmur, rubs, gallop, clicks GI/Abdominal exam: Present: soft, normal bowel sounds. Absent: distended, tenderness, guarding, rebound, rigid Extremities exam: Present: normal inspection, full ROM, normal capillary refill. Absent: tenderness, pedal edema, joint swelling, calf tenderness Back exam: Present: normal inspection Neurological exam: Present: alert, oriented X3, CN II-XII intact Psychiatric exam: Present: normal affect, normal mood Skin exam: Present: warm, dry, intact, normal color. Absent: rash Course Vital Signs 07/16/23 17:25 Temperature 96.4 F L Pulse Rate 81 Respiratory 20 Rate Blood Pressure 188/87 O2 Sat by Pulse 98 Oximetry - Reevaluation(s) Reevaluation #1: 07/16/23 18:05 Medical record is reviewed Reevaluation #2: Patient symptoms are generally unimproved here in the ER Reevaluation #3: patient informed of results and questions answered Reevaluation #4: 07/16/23 18:05 Was pt. sent in by a medical professional or institution (JASMIN Cook, AUTO JOB ESTIMATOR, urgent care, hospital, or long term...) When possible be specific @ -no Did you speak to anyone other than the patient for history (EMS, parent, family, police, friend...)? What history was obtained from this source @ -no Did you review nursing and triage notes (agree or disagree)? Why? @ -agree Are old charts reviewed (outside hosp., previous admission, EMS record, old EKG, old radiological studies, urgent care reports/EKG's, long term records)? Report findings @ -yes Differential Diagnosis (chest pain, altered mental status, abdominal pain women, abdominal pain men, vaginal bleeding, weakness, fever, dyspnea, syncope, headache, dizziness, GI bleed, back pain, seizure, CVA, palpatations, mental health, musculoskeletal)? @ -prior EKG interpreted by me (3pts min.). @ -yes X-rays interpreted by me (1pt min.). @ -yes negative for acute disease CT interpreted by me (1pt min.). @ -Yes negative for acute disease U/S interpreted by me (1pt. min.). @ -no What testing was considered but not performed or refused? (CT, X-rays, U/S, labs)? Why? @ -none What meds were considered but not given or refused? Why? @ -none Did you discuss the management of the patient with other professionals (professionals i.e. JASMIN Cook, AUTO JOB ESTIMATOR, lab, RT, psych nurse, geriatric social work professor, route jumper, teacher, commissary officer, rifle case repairer)? Give summary @ -no Was smoking cessation discussed for >3mins.? @ -no Was critical care preformed (if so, how long)? @ -no Were there social determinants of health that impacted care today? How? (Homelessness, low income, unemployed, alcoholism, drug addiction, transp ortation, low edu. Level, literacy, decrease access to med. care, senior living, rehab)? @ -none Was there de-escalation of care discussed even if they declined (Discuss DNR or withdrawal of care, Hospice)? DNR status @ -no What co-morbidities impacted this encounter? (DM, HTN, Smoking, COPD, CAD, Cancer, CVA, ARF, Chemo, Hep., AIDS, mental health diagnosis, sleep apnea, morbid obesity)? @ -none Was patient admitted / discharged? Hospital course, mention meds given and route, prescriptions, significant lab abnormalities, going to OR and other pertinent info. @ - 82 female to ER for evaluation of debility and fall with inability to ambulate after fall. Patient will be admitted for PT OT evaluation IV hydration Admitted Undiagnosed new problem with uncertain prognosis? @ -no Drug Therapy requiring intensive monitoring for toxicity (Heparin, Nitro, Insulin, Cardizem)? @ -no Were any procedures done? @ -no Diagnosis/symptom? @ -Debility after a fall Acute, or Chronic, or Acute on Chronic? @ -Acute Uncomplicated (without systemic symptoms) or Complicated (systemic symptoms)? @ -Complicated Side effects of treatment? @ -no Exacerbation, Progression, or Severe Exacerbation? @ -exacerbation Poses a threat to life or bodily function? How? (Chest pain, USA, SC, pneumonia, PE, COPD, DKA, ARF, appy, cholecystitis, CVA, Diverticulitis, Homicidal, Suicidal, threat to staff... and all critical care pts) @ -yes with extremes of age Reevaluation #5: Differential Weakness: Hypoglycemia, shock, sepsis, hyponatremia, anemia, infection, SC, ETOH, adverse medicine reaction, overdose, stroke, this is not meant to be an all-inclusive list. - Consultations Consultation #1: Spoke with admitting physicians who agreed to admit this patient Medical Decision Making - Medical Decision Making 82 female to ER for evaluation of debility and fall with inability to ambulate a fter fall. Patient will be admitted for PT OT evaluation IV hydration - Lab Data Result diagrams: 07/19/23 01:11 07/18/23 08:41 Lab Results 07/16/23 07/16/23 07/16/23 Range/Units 19:55 19:55 19:55 WBC 11.7 H (3.8-10.6) k/uL RBC 4.74 (3.80-5.40) m/uL Hgb 14.1 (11.4-16.0) gm/dL Hct 42.1 (34.0-46.0) % MCV 88.9 (80.0-100.0) fL MCH 29.8 (25.0-35.0) pg MCHC 33.5 (31.0-37.0) g/dL RDW 13.5 (11.5-15.5) % Plt Count 263 (150-450) k/uL MPV 7.3 Neutrophils % 77 % Lymphocytes % 15 % Monocytes % 5 % Eosinophils % 1 % Basophils % 0 % Neutrophils # 9.0 H (1.3-7.7) k/uL Lymphocytes # 1.8 (1.0-4.8) k/uL Monocytes # 0.6 (0-1.0) k/uL Eosinophils # 0.1 (0-0.7) k/uL Basophils # 0.0 (0-0.2) k/uL PT 10.6 (10.0-12.5) sec INR 1.0 (<1.2) APTT 25.6 (22.0-30.0) sec Sodium 142 (137-145) mmol/L Potassium 3.7 (3.5-5.1) mmol/L Chloride 110 H (98-107) mmol/L Carbon Dioxide 24 (22-30) mmol/L Anion Gap 8 mmol/L BUN 17 (7-17) mg/dL Creatinine 0.49 L (0.52-1.04) mg/dL Est GFR (CKD-EPI)AfAm >90 (>60 ml/min/1.73 sqM) Est GFR (CKD-EPI)NonAf >90 (>60 ml/min/1.73 sqM) Glucose 90 (74-99) mg/dL Plasma Lactic Acid Chase (0.7-2.0) mmol/L Calcium 9.6 (8.4-10.2) mg/dL Phosphorus 1.8 L (2.5-4.5) mg/dL Magnesium 2.1 (1.6-2.3) mg/dL Total Bilirubin 0.6 (0.2-1.3) mg/dL AST 33 (14-36) U/L ALT 14 (4-34) U/L Alkaline Phosphatase 86 (38-126) U/L Creatine Kinase (30-135) U/L Troponin I (0.000-0.034) ng/mL Total Protein 7.3 (6.3-8.2) g/dL Albumin 4.3 (3.5-5.0) g/dL Urine Color Urine Appearance (Clear) Urine pH (5.0-8.0) Ur Specific [place] (1.001-1.035) Urine Protein (Negative) Urine Glucose (UA) (Negative) Urine Ketones (Negative) Urine Blood (Negative) Urine Nitrite (Negative) Urine Bilirubin (Negative) Urine Urobilinogen (<2.0) mg/dL Ur Leukocyte Esterase (Negative) 07/16/23 07/16/23 07/16/23 Range/Units 19:55 19:55 19:55 WBC (3.8-10.6) k/uL RBC (3.80-5.40) m/uL Hgb (11.4-16.0) gm/dL Hct (34.0-46.0) % MCV (80.0-100.0) fL MCH (25.0-35.0) pg MCHC (31.0-37.0) g/dL RDW (11.5-15.5) % Plt Count (150-450) k/uL MPV Neutrophils % % Lymphocytes % % Monocytes % % Eosinophils % % Basophils % % Neutrophils # (1.3-7.7) k/uL Lymphocytes # (1.0-4.8) k/uL Monocytes # (0-1.0) k/uL Eosinophils # (0-0.7) k/uL Basophils # (0-0.2) k/uL PT (10.0-12.5) sec INR (<1.2) APTT (22.0-30.0) sec Sodium (137-145) mmol/L Potassium (3.5-5.1) mmol/L Chloride (98-107) mmol/L Carbon Dioxide (22-30) mmol/L Anion Gap mmol/L BUN (7-17) mg/dL Creatinine (0.52-1.04) mg/dL Est GFR (CKD-EPI)AfAm (>60 ml/min/1.73 sqM) Est GFR (CKD-EPI)NonAf (>60 ml/min/1.73 sqM) Glucose (74-99) mg/dL Plasma Lactic Acid Chase 1.2 (0.7-2.0) mmol/L Calcium (8.4-10.2) mg/dL Phosphorus (2.5-4.5) mg/dL Magnesium (1.6-2.3) mg/dL Total Bilirubin (0.2-1.3) mg/dL AST (14-36) U/L ALT (4-34) U/L Alkaline Phosphatase (38-126) U/L Creatine Kinase (30-135) U/L Troponin I 0.084 H* (0.000-0.034) ng/mL Total Protein (6.3-8.2) g/dL Albumin (3.5-5.0) g/dL Urine Color Colorless Urine Appearance Clear (Clear) Urine pH 6.5 (5.0-8.0) Ur Specific [place] 1.007 (1.001-1.035) Urine Protein Negative (Negative) Urine Glucose (UA) Negative (Negative) Urine Ketones Negative (Negative) Urine Blood Negative (Negative) Urine Nitrite Negative (Negative) Urine Bilirubin Negative (Negative) Urine Urobilinogen <2.0 (<2.0) mg/dL Ur Leukocyte Esterase Negative (Negative) 07/16/23 07/17/23 07/17/23 Range/Units 19:55 06:40 07:09 WBC 7.4 (3.8-10.6) k/uL RBC 4.00 (3.80-5.40) m/uL Hgb 11.6 (11.4-16.0) gm/dL Hct 35.9 (34.0-46.0) % MCV 89.6 (80.0-100.0) fL MCH 29.0 (25.0-35.0) pg MCHC 32.3 (31.0-37.0) g/dL RDW 13.6 (11.5-15.5) % Plt Count 228 (150-450) k/uL MPV 8.1 Neutrophils % 73 % Lymphocytes % 17 % Monocytes % 8 % Eosinophils % 1 % Basophils % 0 % Neutrophils # 5.4 (1.3-7.7) k/uL Lymphocytes # 1.3 (1.0-4.8) k/uL Monocytes # 0.6 (0-1.0) k/uL Eosinophils # 0.1 (0-0.7) k/uL Basophils # 0.0 (0-0.2) k/uL PT (10.0-12.5) sec INR (<1.2) APTT (22.0-30.0) sec Sodium (137-145) mmol/L Potassium (3.5-5.1) mmol/L Chloride (98-107) mmol/L Carbon Dioxide (22-30) mmol/L Anion Gap mmol/L BUN (7-17) mg/dL Creatinine (0.52-1.04) mg/dL Est GFR (CKD-EPI)AfAm (>60 ml/min/1.73 sqM) Est GFR (CKD-EPI)NonAf (>60 ml/min/1.73 sqM) Glucose (74-99) mg/dL Plasma Lactic Acid Chase (0.7-2.0) mmol/L Calcium (8.4-10.2) mg/dL Phosphorus (2.5-4.5) mg/dL Magnesium (1.6-2.3) mg/dL Total Bilirubin (0.2-1.3) mg/dL AST (14-36) U/L ALT (4-34) U/L Alkaline Phosphatase (38-126) U/L Creatine Kinase 140 H (30-135) U/L Troponin I 0.058 H* (0.000-0.034) ng/mL Total Protein (6.3-8.2) g/dL Albumin (3.5-5.0) g/dL Urine Color Urine Appearance (Clear) Urine pH (5.0-8.0) Ur Specific [place] (1.001-1.035) Urine Protein (Negative) Urine Glucose (UA) (Negative) Urine Ketones (Negative) Urine Blood (Negative) Urine Nitrite (Negative) Urine Bilirubin (Negative) Urine Urobilinogen (<2.0) mg/dL Ur Leukocyte Esterase (Negative) 07/17/23 Range/Units 07:09 WBC (3.8-10.6) k/uL RBC (3.80-5.40) m/uL Hgb (11.4-16.0) gm/dL Hct (34.0-46.0) % MCV (80.0-100.0) fL MCH (25.0-35.0) pg MCHC (31.0-37.0) g/dL RDW (11.5-15.5) % Plt Count (150-450) k/uL MPV Neutrophils % % Lymphocytes % % Monocytes % % Eosinophils % % Basophils % % Neutrophils # (1.3-7.7) k/uL Lymphocytes # (1.0-4.8) k/uL Monocytes # (0-1.0) k/uL Eosinophils # (0-0.7) k/uL Basophils # (0-0.2) k/uL PT (10.0-12.5) sec INR (<1.2) APTT (22.0-30.0) sec Sodium 141 (137-145) mmol/L Potassium 3.1 L (3.5-5.1) mmol/L Chloride 112 H (98-107) mmol/L Carbon Dioxide 23 (22-30) mmol/L Anion Gap 6 mmol/L BUN 12 (7-17) mg/dL Creatinine 0.49 L (0.52-1.04) mg/dL Est GFR (CKD-EPI)AfAm >90 (>60 ml/min/1.73 sqM) Est GFR (CKD-EPI)NonAf >90 (>60 ml/min/1.73 sqM) Glucose 85 (74-99) mg/dL Plasma Lactic Acid Chase (0.7-2.0) mmol/L Calcium 7.8 L (8.4-10.2) mg/dL Phosphorus 2.5 (2.5-4.5) mg/dL Magnesium 1.9 (1.6-2.3) mg/dL Total Bilirubin 0.7 (0.2-1.3) mg/dL AST 29 (14-36) U/L ALT 12 (4-34) U/L Alkaline Phosphatase 64 (38-126) U/L Creatine Kinase (30-135) U/L Troponin I (0.000-0.034) ng/mL Total Protein 5.6 L (6.3-8.2) g/dL Albumin 2.9 L (3.5-5.0) g/dL Urine Color Urine Appearance (Clear) Urine pH (5.0-8.0) Ur Specific [place] (1.001-1.035) Urine Protein (Negative) Urine Glucose (UA) (Negative) Urine Ketones (Negative) Urine Blood (Negative) Urine Nitrite (Negative) Urine Bilirubin (Negative) Urine Urobilinogen (<2.0) mg/dL Ur Leukocyte Esterase (Negative) - EKG Data -: EKG Interpreted by Me (EKG is sinus 76 FL 180 QRS 90 QTc 461) - Radiology Data Radiology results: report reviewed (CT brain and chest and pelvis x-ray negative for traumatic injury), image reviewed Disposition Clinical Impression: Fall, Weakness Disposition: ADMITTED IP TO THIS [facility] Condition: Fair Is patient prescribed a controlled substance at d/c from ED?: No Time of Disposition: 21:00
--- NOTE | 2023-07-16 19:04 | XR ---
EXAMINATION TYPE: XR chest 1V portable, XR knee complete 3 views LT, XR Hip 2 views LT and AP Pelvis DATE OF EXAM: 07/16/2023 Comparison: Left RIBS 09/27/2014 Clinical History: 82-year-old female fall Findings: Chest: Heart is normal size. Aorta and pulmonary vasculature within normal limits. Left apical pleural paren chymal scarring. Mild hyperinflation may relate to a depth of inspiration or underlying emphysema. No consolidation or pleural effusion. There is end-stage, [id number] left glenohumeral joint degenera tive change, markedly progressed from 2014. Narrowing of the subacromial space may reflect chronic fu ll-thickness rotator cuff tear. Pelvis and left hip: The hips appear symmetric and intact. Sacrum and SI joints are limited due to prominent overlying bow el content. Pubic symphysis appears congruent and intact. Left knee: [id number] tricompartmental degenerative change with prominent marginal spurring. A weight-bear ing view could better assess the degree of cartilage and joint space narrowing. No significant joint effusion. Extensor mechanism is intact. No acute fracture, subluxation, dislocation. There may be tana e mild medial soft tissue swelling. The left side of the pelvis. Impression: Chest: 1. Hyperinflation may relate to depth of inspiration or underlying emphysema. 2. Left apical pleural-parenchymal scarring. No acute cardiopulmonary process. 3. End-stage, [id number] left glenohumeral joint OA, markedly progressed from 2014. Pelvis and left hip: 4. Osteopenia. No acute fracture seen. Left knee: 5. At least moderate tricompartmental OA. 6. No acute osseous abnormality seen.
[2023-07-16 20:00] LABS: Basophils % (A) 0 %; Eosinophils # (A) 0.1 k/uL (0-0.7); Eosinophils % (A) 1 %; HCT 42.1 % (34.0-46.0); HGB 14.1 gm/dL (11.4-16.0); Lymphocytes # (A) 1.8 k/uL (1.0-4.8); Lymphocytes % (A) 15 %; MCH 29.8 pg (25.0-35.0); MCHC 33.5 g/dL (31.0-37.0); MCV 88.9 fL (80.0-100.0); Mean Platelet Volume 7.3; Monocytes # (A) 0.6 k/uL (0-1.0); Monocytes % (A) 5 %; Neutrophils % (A) 77 %; Platelet Count 263 k/uL (150-450); RBC 4.74 m/uL (3.80-5.40); RDW 13.5 % (11.5-15.5); WBC 11.7 k/uL (3.8-10.6)
[2023-07-16 20:11] LABS: Appearance,Urine Clear (Clear); Bilirubin,Urine Negative (Negative); Blood,Urine Negative (Negative); Color,Urine Colorless; Glucose,Urine (UA) Negative (Negative); Ketones,Urine Negative (Negative); Leukocyte Esterase,Urine Negative (Negative); Nitrite,Urine Negative (Negative); PH, Urine 6.5 (5.0-8.0); Protein,Urine Negative (Negative); Specific Gravity,Urine 1.007 (1.001-1.035); Urobilinogen,Urine <2.0 mg/dL (<2.0)
[2023-07-16 20:13] LABS: ALT 14 U/L (4-34); AST 33 U/L (14-36); African American GFR (CKD) >90 (>60 ml/min/1.73 sqM); Albumin 4.3 g/dL (3.5-5.0); Alkaline Phosphatase 86 U/L (38-126); Anion Gap 8 mmol/L; Blood Urea Nitrogen 17 mg/dL (7-17); Calcium 9.6 mg/dL (8.4-10.2); Carbon Dioxide 24 mmol/L (22-30); Chloride 110 mmol/L (98-107); Glucose 90 mg/dL (74-99); Magnesium 2.1 mg/dL (1.6-2.3); Non-African American GFR(CKD) >90 (>60 ml/min/1.73 sqM); Phosphorus 1.8 mg/dL (2.5-4.5); Potassium 3.7 mmol/L (3.5-5.1); Sodium 142 mmol/L (137-145); Total Bilirubin 0.6 mg/dL (0.2-1.3); Total Protein 7.3 g/dL (6.3-8.2)
[2023-07-16 20:41] LABS: Partial Thromboplastin Time 25.6 sec (22.0-30.0); Prothrombin Time 10.6 sec (10.0-12.5)
[2023-07-16] MEDS: SODIUM CHLORIDE 0.9% 1,000 ML IV STA (20:59)
[2023-07-16] MEDS ORDERED: NALOXONE 0.4 MG/ML 1 ML VIAL IV PRN (21:05)
--- NOTE | 2023-07-16 21:46 | CT ---
EXAMINATION TYPE: CT brain cspine wo con CT DLP: 1314 mGycm, Automated exposure control for dose reduction was used. DATE OF EXAM: 07/16/2023 9:25 PM COMPARISON: None. CLINICAL INDICATION:Female, 82 years old with history of fall; weakness, fall TECHNIQUE: Brain: Multiple axial CT images of the brain were obtained without IV contrast. Cspine: Axial CT images from the skull base to the inferior aspect of T2 we obtained without intraven ous contrast. Coronal and sagittal reformatted images were also reviewed. FINDINGS: Brain: Exam is limited by patient motion and streak artifacts. Extra-axial spaces: No abnormal extra-axial fluid collections. Radiodensity along the anterior falx m ay relate to calcification or postoperative change. Ventricular system: Appear dilated in proportion to the degree of cerebral atrophy. Cerebral parenchyma: No increased attenuation to suggest acute intraparenchymal hemorrhage. The gra y-white matter interface appears maintained. Moderate generalized brain atrophy. Scattered and some confluent hypoattenuating areas are seen within the cerebral white matter, nonspecific but most ofte n seen with chronic microvascular ischemic changes; moderate in degree. Cerebellum: No acute abnormality. Mass effect: No evidence of mass effect or midline shift. Intracranial vasculature: Atherosclerotic calcifications of the larger arteries near the skull base. Soft tissues: No acute finding. Close to the skull vertex on the right there is a subcutaneous 12 mm nodule which shows some partial calcification, nonspecific; correlate clinically. Visualized orbits: Orbital contents appear grossly intact. Calvarium/osseous structures: No evidence of calvarial fracture. Paranasal sinuses and mastoid air cells: Mild scattered paranasal sinus disease. MRI is more sensitive for detecting acute processes such as infarct, and may be considered if clinica lly warranted. Cervical spine: Fracture: None seen. Osseous structures, spinal canal/neural foramina: Multilevel degenerative disc disease changes with e ndplate spurring, disc osteophyte complexes, facet arthropathy; this is overall moderate in degree. M ost conspicuous finding appears to be mild/moderate spinal canal and neural foraminal stenoses at C6- C7. Vertebral alignment: No traumatic malalignment. Slight degenerative anterolisthesis C4 on C5. Preserv ed normal cervical lordosis. Neck soft tissues: No acute finding.. Calcifications noted involving the cervical carotid arteries mo stly in the bifurcation regions, and along aortic arch. Thyroid appears somewhat heterogeneous with p ossibly a few scattered tiny hyperdense nodules. Other: Lung apices demonstrate calcified granuloma on the right. Biapical pleural/parenchymal thicken ing, greatest on the left, with associated curvilinear radiodensity likely calcification versus posto perative change on the left. 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 The findings appear similar but somewhat progressed from prior CT chest 10/2014; continued follow-up surveillance may be considered as clinically warranted. Question mildly thickened esophageal wall close to the level of the thoracic inlet. IMPRESSION: CT head: 1. No acute intracranial CT abnormality. 2. Moderate atrophy and chronic microvascular ischemic changes. CT cervical spine: 1. No evidence of acute cervical spine fracture or traumatic malalignment. 2. Moderate cervical spondylosis. 3. Changes in the lung apices discussed above.
[2023-07-16] MEDS: MORPHINE SULFATE 4 MG/ML SYRINGE IV PRN (23:33)
[2023-07-16] MEDS: SODIUM CHLORIDE 0.9% 1,000 ML IV SCH (23:36)
[2023-07-17 07:28] LABS: Basophils % (A) 0 %; Eosinophils # (A) 0.1 k/uL (0-0.7); Eosinophils % (A) 1 %; HCT 35.9 % (34.0-46.0); HGB 11.6 gm/dL (11.4-16.0); Lymphocytes # (A) 1.3 k/uL (1.0-4.8); Lymphocytes % (A) 17 %; MCHC 32.3 g/dL (31.0-37.0); MCV 89.6 fL (80.0-100.0); Mean Platelet Volume 8.1; Monocytes # (A) 0.6 k/uL (0-1.0); Monocytes % (A) 8 %; Neutrophils # (A) 5.4 k/uL (1.3-7.7); Neutrophils % (A) 73 %; Platelet Count 228 k/uL (150-450); RDW 13.6 % (11.5-15.5); WBC 7.4 k/uL (3.8-10.6)
[2023-07-17 07:57] LABS: ALT 12 U/L (4-34); AST 29 U/L (14-36); African American GFR (CKD) >90 (>60 ml/min/1.73 sqM); Albumin 2.9 g/dL (3.5-5.0); Alkaline Phosphatase 64 U/L (38-126); Anion Gap 6 mmol/L; Blood Urea Nitrogen 12 mg/dL (7-17); Calcium 7.8 mg/dL (8.4-10.2); Carbon Dioxide 23 mmol/L (22-30); Chloride 112 mmol/L (98-107); Glucose 85 mg/dL (74-99); Magnesium 1.9 mg/dL (1.6-2.3); Non-African American GFR(CKD) >90 (>60 ml/min/1.73 sqM); Phosphorus 2.5 mg/dL (2.5-4.5); Potassium 3.1 mmol/L (3.5-5.1); Sodium 141 mmol/L (137-145); Total Bilirubin 0.7 mg/dL (0.2-1.3); Total Protein 5.6 g/dL (6.3-8.2)
[2023-07-17] MEDS ORDERED: Potassium Replacement Protocol 1 EACH MISC MISCELLANE PRN (09:31)
--- NOTE | 2023-07-17 09:34 | P.HPIM ---
History of Present Illness This is a pleasant 82 years old female with past medical history of bilateral breast cancer status post mastectomy and lymph node dissection it also she has chronic left upper extremity lymphedema. However it looks warmer compared to the right side. Patient lives alone at her apartment and she was cleaning her Disposal going from outside into the house where she has to steps, patient thinks she fell without dizziness or syncope because of her peripheral neuropathy and severe osteoarthritis. Patient states that she has history of neuropathy for 2-3 years and she follows up with Dr. Mac. Also she has severe osteoarthritis and should pose supposed to have surgery with Dr. Ding. She thinks her left knee has more severe osteoarthritis of the right knee, there is scar from previous all surgery on the right knee as well Patient denies headache, confusion, no Tingling or numbness, new weakness Patient denies dysuria or urgency. Hensley catheter was placed in emergency room. Patient also with no abdominal pain and diarrhea or vomiting. She denies smoking alcohol or illicit drugs Patient hemodynamically stable. CBC, INR is unremarkable pt has mild leukocytosis of 11.7 came back down to 7.4 BMP, liver enzymes, is unremarkable Creatinine kinase 140, lactic acid 1.2. Urine analysis is negative area Hensley catheter was placed in emergency room because patient was mildly hypothermic on admission Troponin is elevated 0.08 CT of the brain and cervical spine showing no acute process in either but there is degenerative changes with bilateral apical calcified granuloma of the lungs and questionable esophageal thickening X-ray of the knee shoulder and pelvis showing no acute fracture or dislocation but end-stage [id number], glenohumeral joint Review of Systems Review of systems CONSTITUTIONAL: No fever, no malaise, no fatigue. HEENT: No recent visual problems or hearing problems. Denied any sore throat. CARDIOVASCULAR: No orthopnea, PND, no palpitations, no syncope. PULMONARY: No shortness of breath, no cough, no hemoptysis. GASTROINTESTINAL: No diarrhea, no nausea, no vomiting, no abdominal pain. Normoactive bowel sounds. NEUROLOGICAL: No headaches, no weakness, no numbness. HEMATOLOGICAL: Denies any bleeding or petechiae. GENITOURINARY: Denies any burning micturition, frequency, or urgency. MUSCULOSKELETAL/RHEUMATOLOGICAL: Denies any joint pain, swelling, or any muscle pain. ENDOCRINE: Denies any polyuria or polydipsia. Past Medical History Past Medical History: COPD, Hypertension Additional Past Medical History / Comment(s): breast cancer r breast 1993, left breast cancer 1999, chronic pulmonary edema, right breast removed in 1993, left breast removed 2011, Parkinsons History of Any Multi-Drug Resistant Organisms: None Reported Past Surgical History: Cholecystectomy, Hysterectomy, Joint Replacement Additional Past Surgical History / Comment(s): bilateral mastectomy, bilater knee replacement Past Psychological History: No Psychological Hx Reported Smoking Status: Never smoker Past Alcohol Use History: None Reported Past Drug Use History: None Reported Medications and Allergies Home Medications Medication Instructions Recorded Confirmed Type Chlorthalidone [Hygroton] 25 mg PO DIRECTED 07/16/23 07/16/23 History Pregabalin [Lyrica] 25 mg PO DIRECTED 07/16/23 07/16/23 History Allergies Allergy/AdvReac Type Severity Reaction Status Date / Time amlodipine Allergy Nausea Verified 07/16/23 20:01 carbidopa [From Sinemet] Allergy Unknown Verified 07/16/23 20:01 chlorthalidone Allergy Swelling Verified 07/16/23 20:01 of arm clonidine Allergy sweliing Verified 07/16/23 20:01 Iodinated Contrast Media Allergy Anaphylaxis Verified 07/16/23 20:01 [Iodinated Contrast Media - IV Dye] levodopa [From Sinemet] Allergy Unknown Verified 07/16/23 20:01 metoprolol Allergy Swelling Verified 07/16/23 20:01 left arm, nauea, sore throat pilocarpine Allergy Rash/Hives Verified 07/16/23 20:01 Tetracyclines Allergy Swelling Verified 07/16/23 20:01 venom-honey bee Allergy Rash/Hives Verified 07/16/23 20:01 [bee venom (honey bee)] furosemide [From Lasix] AdvReac Nausea & Verified 07/16/23 20:01 Vomiting primidone [From Mysoline] AdvReac Unknown Verified 07/16/23 20:01 ropinirole [From Requip] AdvReac Nausea & Verified 07/16/23 20:01 Vomiting Physical Exam Vitals: Vital Signs Temp Pulse Resp BP Pulse Ox 07/17/23 06:30 75 16 135/70 95 07/17/23 03:08 77 18 124/75 96 07/16/23 23:42 97.9 F 87 16 152/73 94 L 07/16/23 17:25 96.4 F L 81 20 188/87 98 Intake and Output 07/16/23 07/17/23 07/17/23 22:59 06:59 14:59 Other: Weight 65.771 kg -GENERAL: The patient is alert and oriented x3, not in any acute distress. Well developed, well nourished. Generally weak HEENT: Pupils are round and equally reacting to light. EOMI. No scleral icterus. No conjunctival pallor. Normocephalic, atraumatic. No pharyngeal erythema. No thyromegaly. CARDIOVASCULAR: S1 and S2 present. No murmurs, rubs, or gallops. PULMONARY: Chest is clear to auscultation, no wheezing , no crackles. ABDOMEN: Soft, nontender, nondistended, normoactive bowel sounds. No palpable organomegaly. MUSCULOSKELETAL: No joint swelling or deformity. -EXTREMITIES: No cyanosis, clubbing, or pedal edema. Left upper extremity is swollen warm and slightly weaker than the right side. NEUROLOGICAL: Gross neurological examination did not reveal any focal deficits. SKIN: No rashes. no petechiae. Results CBC & Chem 7: 07/17/23 07:09 07/17/23 07:09 Labs: Abnormal Lab Results - Last 24 Hours (Table) 07/16/23 07/16/23 07/16/23 Range/Units 19:55 19:55 19:55 WBC 11.7 H (3.8-10.6) k/uL Neutrophils # 9.0 H (1.3-7.7) k/uL Chloride 110 H (98-107) mmol/L Creatinine 0.49 L (0.52-1.04) mg/dL Phosphorus 1.8 L (2.5-4.5) mg/dL Creatine Kinase (30-135) U/L Troponin I 0.084 H* (0.000-0.034) ng/mL 07/16/23 Range/Units 19:55 WBC (3.8-10.6) k/uL Neutrophils # (1.3-7.7) k/uL Chloride (98-107) mmol/L Creatinine (0.52-1.04) mg/dL Phosphorus (2.5-4.5) mg/dL Creatine Kinase 140 H (30-135) U/L Troponin I (0.000-0.034) ng/mL Assessment and Plan Assessment: fall at home without syncope Severe osteoarthritis of fall within the left shoulder, which is end-stage osteoarthritis and bilateral [place] of the left side Peripheral neuropathy history of bilateral breast cancer status post mastectomy and lymph node dissection it also she has chronic left upper extremity lymphedema. Elevated troponin Plan: Check ultrasound of the left upper extremity to rule out DVT Check MRI of the brain Cardiology consult with echocardiogram Continue with IV hydration Orthopedic consult with Dr. Ding for her severe osteoarthritis Labs and medication were reviewed.. Continue same treatment. Continue with symptomatic treatment. Resume home medication. Monitor labs and vitals. DVT and GI prophylaxis. Further recommendations as per clinical course of the patient DVT prophylaxis: Subcutaneous heparin GI Prophylaxis: Pepcid PT/OT: Pending Prognosis is guarded
[2023-07-17] MEDS: HEPARIN SODIUM,PORCINE 5,000 UNIT/ML 1 ML VIAL SQ SCH (10:36)
[2023-07-17] MEDS: FAMOTIDINE 20 MG/2 ML VIAL IV SCH (10:36)
--- NOTE | 2023-07-17 11:29 | US ---
EXAMINATION TYPE: US venous doppler duplex UE LT DATE OF EXAM: 07/17/2023 COMPARISON: NONE CLINICAL INDICATION: Female, 82 years old with history of swelling; swelling in left arm, no injury, h/o Parkinson's, no h/o dvt SIDE PERFORMED: Left Left Arm: Negative for DVT IMPRESSION: 1. Left upper extremity venous ultrasound negative for deep venous thrombosis.
--- NOTE | 2023-07-17 11:33 | CA ---
Transthoracic Echo Report Name: Iwona Stiles Age: 82 Gender: F : 1940 Exam Date: 07/17/2023 09:55 Exam Location: [facility] Ht (in): 66 Wt (lb): 145 Ordering Physician: Nishant Plasencia MD Attending/Referring Phys: [id number], Luis Angel Photography Professor Paty Daigle RDCS Procedure CPT: Indications: Rule out heart disease Cardiac Hx: Technical Quality: Fair Contrast 1: Total Dose (mL): Contrast 2: Total Dose (mL): MEASUREMENTS (Male / Female) Normal Values 2D ECHO LV Diastolic Diameter PLAX 3.8 cm 4.2 - 5.9 / 3.9 - 5.3 cm LV Systolic Diameter PLAX 2.5 cm IVS Diastolic Thickness 1.3 cm 0.6 - 1.0 / 0.6 - 0.9 cm LVPW Diastolic Thickness 1.1 cm 0.6 - 1.0 / 0.6 - 0.9 cm LV Relative Wall Thickness 0.6 RV Internal Dim ED PLAX 2.7 cm LA Volume 54.9 cm??? 18 - 58 / 22 - 52 cm??? LA Volume Index 31.3 cm???/m??? 16 - 28 cm???/m??? M-MODE Aortic Root Diameter MM 2.7 cm LA Systolic Diameter MM 3.2 cm LA Ao Ratio MM 1.2 AV Cusp Separation MM 1.6 cm DOPPLER AV Peak Velocity 172.3 cm/s AV Peak Gradient 11.9 mmHg AV Mean Velocity 113.1 cm/s AV Mean Gradient 6.0 mmHg AV Velocity Time Integral 35.3 cm LVOT Peak Velocity 92.9 cm/s LVOT Peak Gradient 3.5 mmHg LVOT Velocity Time Integral 18.2 cm MV Area PHT 3.3 cm??? Mitral E Point Velocity 33.8 cm/s Mitral A Point Velocity 75.0 cm/s Mitral E to A Ratio 0.5 MV Deceleration Time 232.0 ms MV E' Velocity 4.3 cm/s Mitral E to MV E' Ratio 7.8 TR Peak Velocity 177.2 cm/s TR Peak Gradient 12.6 mmHg Right Ventricular Systolic Press 17.6 mmHg FINDINGS Left Ventricle Mildly increased left ventricular wall thickness. Left ventricular cavity size normal. Normal left ventricular systolic function with no obvious regional wall motion abnormalities. Left ventricular ejection fraction is estimated at 55 %. Right Ventricle Normal right ventricular size and function. Right ventricular systolic pressure within normal limits. Right Atrium Normal right atrial size. Left Atrium Mildly increased left atrial volume. Mildly increased left atrial area. Mitral Valve Structurally normal mitral valve. Moderate mitral annular calcification. Mild mitral regurgitation. Aortic Valve Trileaflet aortic valve. No aortic valve stenosis or regurgitation. Tricuspid Valve Structurally normal tricuspid valve. Mild tricuspid regurgitation. Pulmonic Valve Structurally normal pulmonic valve. Pericardium No pericardial effusion. Aorta Normal size aortic root and proximal ascending aorta. CONCLUSIONS Normal LV systolic function Mild mitral regurgitation Mild tricuspid regurgitation Previewed by: Dr. Geoffrey Pena MD (Electronically Signed) Final Date: 17 July 2023 11:32
--- NOTE | 2023-07-17 12:33 | P.CNOR ---
History of Present Illness - [facility] Consult date: 07/17/23 Consult reason: other (Trell joint osteoarthritis) History of present illness: Patient is an 82-year-old female who was brought to [facility] on 07/16/2023 after sustaining a fall while at home. Patient apparently was ambulating when she became very lightheaded and fell backwards hitting her garba ge cans and landing on concrete. She was brought to the hospital, patient underwent multiple imaging and lab test. Patient has been admitted to the cardiac stepdown unit and multiple medical consults have been placed. Our orthopedic consult was placed due to the patient being known to Dr. Lawrenec and her left shoulder osteoarthritis. Patient was evaluated today at bedside, her [id number] was present in the emergency room. Patient notes multiple areas of discomfort due to the recent fall. She has known osteoarthritis to the bilateral knees and bilateral shoulders. She has had previous knee surgery bilaterally, this was done over 20 years ago. Patient apparently does live alone in an apartment. She utilizes no assistive devices for ambulation. Patient does not drive anymore. Patient spends a lot of time sitting in her chair. She feels over the last few months her health has worsened, she does note a lot of weakness overall. Patient has received cortisone injections in the bilateral shoulders from Dr. Lawrence for her known osteoarthritis. Currently she states that the left shoulder is the most symptomatic, followed by her left knee. She does have some chronic neck pain a nd low back pain that seems to be stable at this time. She denies any loss of bowel or bladder function at this time. Review of Systems Constitutional: Reports as per HPI Past Medical History Past Medical History: COPD, Hypertension Additional Past Medical History / Comment(s): breast cancer r breast 1993, left breast cancer 1999, chronic pulmonary edema, right breast removed in 1993, left breast removed 2011, Parkinsons History of Any Multi-Drug Resistant Organisms: None Reported Past Surgical History: Cholecystectomy, Hysterectomy, Joint Replacement Additional Past Surgical History / Comment(s): bilateral mastectomy, bilater knee replacement Past Psychological History: No Psychological Hx Reported Smoking Status: Never smoker Past Alcohol Use History: None Reported Past Drug Use History: None Reported Medications and Allergies Home Medications Medication Instructions Recorded Confirmed Type Chlorthalidone [Hygroton] 25 mg PO DIRECTED 07/16/23 07/16/23 History Pregabalin [Lyrica] 25 mg PO DIRECTED 07/16/23 07/16/23 History Allergies Allergy/AdvReac Type Severity Reaction Status Date / Time amlodipine Allergy Nausea Verified 07/16/23 20:01 carbidopa [From Sinemet] Allergy Unknown Verified 07/16/23 20:01 chlorthalidone Allergy Swelling Verified 07/16/23 20:01 of arm clonidine Allergy sweliing Verified 07/16/23 20:01 Iodinated Contrast Media Allergy Anaphylaxis Verified 07/16/23 20:01 [Iodinated Contrast Media - IV Dye] levodopa [From Sinemet] Allergy Unknown Verified 07/16/23 20:01 metoprolol Allergy Swelling Verified 07/16/23 20:01 left arm, nauea, sore throat pilocarpine Allergy Rash/Hives Verified 07/16/23 20:01 Tetracyclines Allergy Swelling Verified 07/16/23 20:01 venom-honey bee Allergy Rash/Hives Verified 07/16/23 20:01 [bee venom (honey bee)] furosemide [From Lasix] AdvReac Nausea & Verified 07/16/23 20:01 Vomiting primidone [From Mysoline] AdvReac Unknown Verified 07/16/23 20:01 ropinirole [From Requip] AdvReac Nausea & Verified 07/16/23 20:01 Vomiting Physical Examination Left upper extremity: No obvious open lesions or sores are present, no areas of erythema or soft tissue swelling. Significant crepitance is appreciated with range of motion of the shoulder. Patient's range of motion is very limited, she can abduct and flex to about 90 degrees before pain is reproduced. She does demonstrate discomfort over the anterior glenohumeral joint line. Extension and flexion are intact at the elbow, wrist extension wrist flexion are intact. Sensory exam to light touch is intact throughout the extremity. Her radial and ulnar pulse are 2+. Left lower extremity: Well-healed incision over the medial aspect of the anterior knee joint. There is a mild effusion present. There is no open lesions or areas of ecchymosis present. Patient has limited range of motion due to pain with flexion and extension of the knee, mild contracture present. Quadriceps and patellar tendon appear intact when testing extension and flexion of the knee. Calf is soft, no tenderness with palpation. There is notable swelling in the extremity. Plantarflexion, dorsiflexion, EHL, FHL are intact. Dorsalis pedis pulses 2+. Sensory exam to light touch throughout the extremity is intact. Logroll maneuver reproduces no pain, passive hip flexion along with internal and external rotation reproduce no pain in the groin General orthopedic exam: Right upper extremity has no open lesions or sores present, no obvious ecchymosis or soft tissue swelling. Crepitance is felt over the anterior gle nohumeral joint line with range of motion, her range of motion is about the same as the left shoulder, 90 degrees of both abduction and forward elevation. Elbow extension and flexion along with wrist extension and flexion are intact. Sensory exam to light touch throughout the right upper extremity is intact, radial and ulnar pulse are 2+ Right lower extremity demonstrates well-healed incision over the anterior medial aspect of the knee. No effusion present on the knee. Logroll maneuver repr oduces no pain in the groin. Extension and flexion at the knee and hip are limited, control mild contracture present. Sensory exam to light touch throughout the extremity is intact, dorsalis pedis pulses 2+ Results - Labs Labs: Abnormal Lab Results - Last 24 Hours (Table) 07/16/23 07/16/23 07/16/23 Range/Units 19:55 19:55 19:55 WBC 11.7 H (3.8-10.6) k/uL Neutrophils # 9.0 H (1.3-7.7) k/uL Potassium (3.5-5.1) mmol/L Chloride 110 H (98-107) mmol/L Creatinine 0.49 L (0.52-1.04) mg/dL Calcium (8.4-10.2) mg/dL Phosphorus 1.8 L (2.5-4.5) mg/dL Creatine Kinase (30-135) U/L Troponin I 0.084 H* (0.000-0.034) ng/mL Total Protein (6.3-8.2) g/dL Albumin (3.5-5.0) g/dL 07/16/23 07/17/23 07/17/23 Range/Units 19:55 06:40 07:09 WBC (3.8-10.6) k/uL Neutrophils # (1.3-7.7) k/uL Potassium 3.1 L (3.5-5.1) mmol/L Chloride 112 H (98-107) mmol/L Creatinine 0.49 L (0.52-1.04) mg/dL Calcium 7.8 L (8.4-10.2) mg/dL Phosphorus (2.5-4.5) mg/dL Creatine Kinase 140 H (30-135) U/L Troponin I 0.058 H* (0.000-0.034) ng/mL Total Protein 5.6 L (6.3-8.2) g/dL Albumin 2.9 L (3.5-5.0) g/dL H & H 07/16/23 07/17/23 Range/Units 19:55 07:09 Hgb 14.1 11.6 (11.4-16.0) gm/dL Hct 42.1 35.9 (34.0-46.0) % Coagulation 07/16/23 Range/Units 19:55 INR 1.0 (<1.2) Result Diagrams: 07/17/23 07:09 07/17/23 07:09 - Diagnostic results Hip x-ray: report reviewed, image reviewed (AP pelvis along with AP and lateral view of the left hip and reports were reviewed. No acute fractures or dislocations. Mild osteoarthritic findings notable in the bilateral hips, this to include joint space narrowing.) Knee x-ray: report reviewed, image reviewed (Images of the left knee along with reports were reviewed, moderate to severe osteoarthritic findings are appreciated on the medial joint and patellofemoral joint. Loss of joint space and osteophyte formation appreciated) Assessment and Plan Assessment: Right shoulder osteoarthritis Left shoulder osteoarthritis, likely rotator cuff arthropathy Left knee osteoarthritis Multiple level cervical spondylosis Generalized debility/weakness Other medical comorbidities Plan: I was able to discuss the case, this to include physical exam findings and imaging studies my attending Dr. Lawrence. No emergent orthopedic surgical intervention is recommended at this time Chest x-ray did demonstrate the osteoarthritic findings present on the bilateral shoulders. With regards to the shoulder arthritis, recommending conservative measures, list to include Tylenol, low-dose narcotics like tramadol versus [place] 5 mg / 325 mg. We discussed the possibility of intra-articular cortisone injections in the outpatient setting in the future. She was made aware that joint replacement would be the definitive treatment for this. We will continue to monitor the left knee during the hospital stay, I discussed the possibility of a bedside aspiration and cortisone injection if symptoms worsen, recommend icing and elevating also. Weight-bear as tolerated PT/OT evaluation DVT prophylaxis per primary medical service Other medical specialty recommendations appreciated Discussed with both the patient and family member today at bedside, she would benefit from subacute rehab placement. Patient seems like her general medical status has declined over the last few months. We will continue to follow during hospital stay Time with Patient: Less than 30
--- NOTE | 2023-07-17 12:59 | P.CRDCN ---
History of Present Illness Consult date: 07/17/23 Reason for Consult (text): ELEVATED TROPONINS History of present illness: History of present illness: This is an 82-year-old female with past medical history of hypertension, osteoarthritis, breast cancer, COPD. We have been asked to evaluate the patient for elevated troponins. Patient states that she had a fall at home where she lives alone. She states it was in a cold area and she could not get up. She denies any loss of consciousness. No chest pain or shortness of breath. She states that she had significant weakness. Patient has been seen once by Dr. Cait Pena underwent stress test last year which she states was essentially normal. Patient is status post 1 L of IV fluids and potassium replacement ordered. EKG sinus rhythm with tall R wave Chest x-ray: No acute process CT of the brain no acute process Echocardiogram performed 07/17/2023 revealed EF of 55%, mild mitral regurgitation, mild tricuspid regurgitation. Venous Doppler of the left upper extremity negative for DVT WBC initial 11.7 now 7.4 otherwise CBC is unremarkable. INR 1. Potassium 3.1. BUN 21 creatinine 0.49. Liver function tests are normal. CK1 140. Troponin 0.084, 0.058. Urinalysis negative. Magnesium 1.9. Home cardiac medications: Chlorthalidone 25 mg --patient has not started medication Review Of Systems: At the time of my exam: CONSTITUTIONAL: Denies fever or chills. Reports weakness HEENT: Denies blurred vision, vision changes, or eye pain. Denies hemoptysis CARDIOVASCULAR: Denies chest pain. Denies orthopnea. Denies PND. Denies pa lpitations RESPIRATORY: Denies shortness of breath. GASTROINTESTINAL: Denies abdominal pain. Denies nausea or vomiting. HEMATOLOGIC: Denies bleeding disorders. GENITOURINARY: Denies any blood in urine. SKIN: Denies pruitis. Denies rash. Physical examination: Gen: This is an 82-year-old female in no acute distress VS: reviewed HEENT: Head is atraumatic, normocephalic. Pupils equal, round. Sclerae is anicteric. NECK: Supple. No JVD. LUNGS: Clear to auscultation. No wheezes or rhonchi. No intercostal retractions. HEART: Regular rate and rhythm. No murmur. ABDOMEN: Soft No tenderness. EXTREMITIES: 1+ pedal edema. No calf tenderness. NEUROLOGICAL: Patient is awake, alert and oriented x3. Assessment: Mild acute diastolic heart failure Elevated troponins rule out acute coronary syndrome Hypertension Plan: Resume patient's home cardiac medications Start patient on aspirin 81 mg daily, atorvastatin 40 mg daily Start patient on IV Lasix 20 mg every 12 hours Monitor I&O, daily weights, electrolytes and renal function Obtain 2-D echocardiogram and Doppler study to assess cardiac structure and function Patient may require cardiac catheterization once stabilized. Further recommendations to follow based upon clinical course Thank you kindly for this consultation. Nurse practitioner note has been reviewed, I agree with documented findings and plan of care. Patient was seen and examined. Past Medical History Past Medical History: COPD, Hypertension Additional Past Medical History / Comment(s): breast cancer r breast 1993, left breast cancer 1999, chronic pulmonary edema, right breast removed in 1993, left breast removed 2011, Parkinsons History of Any Multi-Drug Resistant Organisms: None Reported Past Surgical History: Cholecystectomy, Hysterectomy, Joint Replacement Additional Past Surgical History / Comment(s): bilateral mastectomy, bilater knee replacement Past Psychological History: No Psychological Hx Reported Smoking Status: Never smoker Past Alcohol Use History: None Reported Past Drug Use History: None Reported Medications and Allergies Home Medications Medication Instructions Recorded Confirmed Type Chlorthalidone [Hygroton] 25 mg PO DIRECTED 07/16/23 07/16/23 History Pregabalin [Lyrica] 25 mg PO DIRECTED 07/16/23 07/16/23 History Allergies Allergy/AdvReac Type Severity Reaction Status Date / Time amlodipine Allergy Nausea Verified 07/16/23 20:01 carbidopa [From Sinemet] Allergy Unknown Verified 07/16/23 20:01 chlorthalidone Allergy Swelling Verified 07/16/23 20:01 of arm clonidine Allergy sweliing Verified 07/16/23 20:01 Iodinated Contrast Media Allergy Anaphylaxis Verified 07/16/23 20:01 [Iodinated Contrast Media - IV Dye] levodopa [From Sinemet] Allergy Unknown Verified 07/16/23 20:01 metoprolol Allergy Swelling Verified 07/16/23 20:01 left arm, nauea, sore throat pilocarpine Allergy Rash/Hives Verified 07/16/23 20:01 Tetracyclines Allergy Swelling Verified 07/16/23 20:01 venom-honey bee Allergy Rash/Hives Verified 07/16/23 20:01 [bee venom (honey bee)] furosemide [From Lasix] AdvReac Nausea & Verified 07/16/23 20:01 Vomiting primidone [From Mysoline] AdvReac Unknown Verified 07/16/23 20:01 ropinirole [From Requip] AdvReac Nausea & Verified 07/16/23 20:01 Vomiting Physical Exam Vitals: Vital Signs Temp Pulse Pulse Resp BP BP Pulse Ox 07/17/23 07:55 97.0 F L 72 16 139/72 97 07/17/23 06:30 75 16 135/70 95 07/17/23 03:08 77 18 124/75 96 07/16/23 23:42 97.9 F 87 16 152/73 94 L 07/16/23 17:25 96.4 F L 81 20 188/87 98 Intake and Output 07/16/23 07/17/23 07/17/23 22:59 06:59 14:59 Intake Total 118 Balance 118 Intake: Oral 118 Other: Voiding Method Indwelling Catheter Weight 65.771 kg Results 07/17/23 07:09 07/17/23 07:09 Cardiac Enzymes 07/16/23 07/16/23 07/17/23 Range/Units 19:55 19:55 06:40 AST 33 (14-36) U/L Troponin I 0.084 H* 0.058 H* (0.000-0.034) ng/mL 07/17/23 Range/Units 07:09 AST 29 (14-36) U/L Troponin I (0.000-0.034) ng/mL Coagulation 07/16/23 Range/Units 19:55 PT 10.6 (10.0-12.5) sec APTT 25.6 (22.0-30.0) sec CBC 07/16/23 07/17/23 Range/Units 19:55 07:09 WBC 11.7 H 7.4 (3.8-10.6) k/uL RBC 4.74 4.00 (3.80-5.40) m/uL Hgb 14.1 11.6 (11.4-16.0) gm/dL Hct 42.1 35.9 (34.0-46.0) % Plt Count 263 228 (150-450) k/uL Comprehensive Metabolic Panel 07/16/23 07/17/23 Range/Units 19:55 07:09 Sodium 142 141 (137-145) mmol/L Potassium 3.7 3.1 L (3.5-5.1) mmol/L Chloride 110 H 112 H (98-107) mmol/L Carbon Dioxide 24 23 (22-30) mmol/L BUN 17 12 (7-17) mg/dL Creatinine 0.49 L 0.49 L (0.52-1.04) mg/dL Glucose 90 85 (74-99) mg/dL Calcium 9.6 7.8 L (8.4-10.2) mg/dL AST 33 29 (14-36) U/L ALT 14 12 (4-34) U/L Alkaline Phosphatase 86 64 (38-126) U/L Total Protein 7.3 5.6 L (6.3-8.2) g/dL Albumin 4.3 2.9 L (3.5-5.0) g/dL Current Medications Generic Name Dose Route Start Last Admin Trade Name Freq PRN Reason Stop Dose Admin Acetaminophen 650 mg 07/16/23 21:05 Acetaminophen Tab 325 Mg Tab PO Q6HR PRN Mild Pain or Fever > 100.5 Famotidine 20 mg 07/17/23 09:00 07/17/23 10:36 Famotidine 20 Mg/2 Ml Vial IV Not Given Q12HR MACARIO Heparin Sodium (Porcine) 5,000 unit 07/17/23 09:00 07/17/23 10:36 Heparin Sodium,Porcine 5,000 Unit/Ml 1 Ml Vial SQ Not Given Q12HR MACARIO Sodium Chloride 1,000 mls @ 130 mls/hr 07/16/23 21:15 07/17/23 09:53 Saline 0.9% IV Not Given .[id number] MACARIO Lorazepam 1 mg 07/17/23 10:32 Lorazepam 2 Mg/Ml Inj IV ONCE PRN Anxiety Miscellaneous Information 1 each 07/17/23 09:31 Potassium Replacement Protocol 1 Each Misc MISCELLANE DAILY PRN Per Protocol Protocol Morphine Sulfate 4 mg 07/16/23 21:05 07/17/23 07:52 Morphine Sulfate 4 Mg/Ml Syringe IV 4 mg Q4HR PRN Administration Severe Pain (Scale 7 to 10) Naloxone HCl 0.2 mg 07/16/23 21:05 Naloxone 0.4 Mg/Ml 1 Ml Vial IV Q2M PRN Opioid Reversal Ondansetron HCl 4 mg 07/16/23 21:05 Ondansetron 4 Mg/2 Ml Vial IVP Q8HR PRN Nausea And Vomiting Potassium Chloride 20 meq 07/17/23 13:00 Potassium Chloride Er 20 Meq Tab.Er PO 07/17/23 14:01 Q1HR [facility] Protocol Intake and Output 07/16/23 07/17/23 07/17/23 22:59 06:59 14:59 Intake Total 118 Balance 118 Intake: Oral 118 Other: Voiding Method Indwelling Catheter Weight 65.771 kg 07/17/23 07:09 07/17/23 07:09
[2023-07-17] MEDS: FUROSEMIDE 10 MG/ML 2 ML VIAL IV SCH (14:10)
[2023-07-17] MEDS: POTASSIUM CHLORIDE ER 20 MEQ TAB.ER PO SCH (14:10)
[2023-07-17] MEDS: ASPIRIN 81 MG PO SCH (14:10)
[2023-07-17] MEDS: ATORVASTATIN 40 MG TAB PO SCH (14:11)
[2023-07-17] MEDS: LORazepam 2 MG/ML INJ IV PRN (14:52)
--- NOTE | 2023-07-17 17:16 | MR ---
EXAMINATION TYPE: MR brain wo con DATE OF EXAM: 07/17/2023 COMPARISON: CT brain 07/16/2023 HISTORY: Falls CONTRAST: Performed utilizing 0 mL intravenous Gadavist gadolinium contrast. TECHNIQUE: Multiplanar, multiecho imaging on a 3.0 Cassie magnet is performed through the brain. Stud y is performed within 24 hours of arrival to the hospital. The craniovertebral junction is normal. The pituitary is normal. Diffusion-weighted imaging is performed. No abnormal hyperintensity is present to suggest an acute i ntracranial infarct or acute ischemic change. There are patchy areas of hyperintensity on T2 and inversion recovery weighted sequences compatible w ith chronic appearing microvascular ischemic type changes. Ventricles and sulci are prominent for the patient age. IMPRESSION: 1. Patchy chronic appearing periventricular white matter ischemic type changes with atrophy. 2. No acute intracranial process
[2023-07-17] MEDS: ONDANSETRON 4 MG/2 ML VIAL IVP PRN (21:19)
[2023-07-17] MEDS: ACETAMINOPHEN TAB 325 MG TAB PO PRN (22:18)
[2023-07-18 09:28] LABS: Basophils % (A) 0 %; Eosinophils # (A) 0.2 k/uL (0-0.7); Eosinophils % (A) 3 %; HCT 36.6 % (34.0-46.0); Lymphocytes # (A) 1.6 k/uL (1.0-4.8); Lymphocytes % (A) 23 %; MCH 29.7 pg (25.0-35.0); MCHC 32.9 g/dL (31.0-37.0); MCV 90.2 fL (80.0-100.0); Mean Platelet Volume 8.1; Monocytes # (A) 0.5 k/uL (0-1.0); Monocytes % (A) 7 %; Neutrophils # (A) 4.4 k/uL (1.3-7.7); Neutrophils % (A) 65 %; Platelet Count 226 k/uL (150-450); RBC 4.06 m/uL (3.80-5.40); RDW 13.9 % (11.5-15.5); WBC 6.8 k/uL (3.8-10.6)
[2023-07-18 09:43] LABS: African American GFR (CKD) >90 (>60 ml/min/1.73 sqM); Anion Gap 5 mmol/L; Blood Urea Nitrogen 15 mg/dL (7-17); Calcium 7.8 mg/dL (8.4-10.2); Carbon Dioxide 24 mmol/L (22-30); Chloride 109 mmol/L (98-107); Glucose 84 mg/dL (74-99); Magnesium 1.9 mg/dL (1.6-2.3); Non-African American GFR(CKD) 87 (>60 ml/min/1.73 sqM); Potassium 3.8 mmol/L (3.5-5.1); Sodium 138 mmol/L (137-145)
[2023-07-18] MEDS ORDERED: ALPRAZolam 0.5 MG TAB PO PRN (10:49)
[2023-07-18] MEDS ORDERED: NITROGLYCERIN SL TABS 0.4 MG TAB SUBLINGUAL PRN (10:49)
[2023-07-18] MEDS: ASPIRIN 325 MG TAB PO STA (11:43)
[2023-07-18] MEDS: ATORVASTATIN 80 MG TAB PO STA (11:43)
[2023-07-18] MEDS ORDERED: VERAPAMIL 2.5 MG/ML 2 ML AMP ONE (11:52)
[2023-07-18] MEDS ORDERED: diphenhydrAMINE 50 MG/ML 1 ML VIAL ONE (12:02)
[2023-07-18] MEDS ORDERED: fentaNYL (PF) 50 MCG/ML 2 ML AMP ONE (12:02)
[2023-07-18] MEDS: diphenhydrAMINE 50 MG/ML 1 ML VIAL IVP ONE (12:05)
[2023-07-18] MEDS: methylPREDNISolone SOD SUCCI 125 MG/2 ML VIAL IVP ONE (12:05)
[2023-07-18] MEDS: SODIUM CHLORIDE 0.9% 1,000 ML IV ONE (12:05)
--- NOTE | 2023-07-18 12:06 | P.PN ---
Subjective This is a pleasant 82 years old female with past medical history of bilateral breast cancer status post mastectomy and lymph node dissection it also she has chronic left upper extremity lymphedema. However it looks warmer compared to the right side. Patient lives alone at her apartment and she was cleaning her Disposal going from outside into the house where she has to steps, patient thinks she fell without dizziness or syncope because of her peripheral neuropathy and severe osteoarthritis. Patient states that she has history of neuropathy for 2-3 years and she follows up with Dr. Mac. Also she has severe osteoarthritis and should pose supposed to have surgery with Dr. Ding. She thinks her left knee has more severe osteoarthritis of the right knee, there is scar from previous all surgery on the right knee as well Patient denies headache, confusion, no Tingling or numbness, new weakness Patient denies dysuria or urgency. Hensley catheter was placed in emergency room. Patient also with no abdominal pain and diarrhea or vomiting. She denies smoking alcohol or illicit drugs Patient hemodynamically stable. CBC, INR is unremarkable pt has mild leukocytosis of 11.7 came back down to 7.4 BMP, liver enzymes, is unremarkable Creatinine kinase 140, lactic acid 1.2. Urine analysis is negative area Hensley catheter was placed in emergency room because patient was mildly hypothermic on admission Troponin is elevated 0.08 CT of the brain and cervical spine showing no acute process in either but there is degenerative changes with bilateral apical calcified granuloma of the lungs and questionable esophageal thickening X-ray of the knee shoulder and pelvis showing no acute fracture or dislocation but end-stage [id number], glenohumeral joint 05/21/2023 Patient is awake alert and baseline No chest pain or dyspnea She has difficulty moving because of pain in her shoulders and her left knee related to her severe end-stage osteoarthritis. Patient was evaluated by orthopedic team recommended pain management and possible steroid injection but definitive treatment will be replacement therapy which patient is to follow up for it as an outpatient currently. IV fluids was discontinued and placed on IV Lasix 20 mg twice daily. Aspirin 81 mg Lipitor added Cardiology team R following closely for possible cardiac cath Check ultrasound of the left upper extremity is negative DVT Check MRI of the brain is negative for acute process or mets per report Also consult oncology team for her left upper extremity lymphedema related to her breast cancer I called oncology office and looks like patient hasn't had follow-up for the last 4 years. Therefore going to consult oncology team Case was discussed with cardiology Review of systems CONSTITUTIONAL: No fever, no malaise, no fatigue. HEENT: No recent visual problems or hearing problems. Denied any sore throat. CARDIOVASCULAR: No orthopnea, PND, no palpitations, no syncope. PULMONARY: No shortness of breath, no cough, no hemoptysis. GASTROINTESTINAL: No diarrhea, no nausea, no vomiting, no abdominal pain. Normoactive bowel sounds. NEUROLOGICAL: No headaches, no weakness, no numbness. Active Medications Generic Name Dose Route Start Last Admin Trade Name Freq PRN Reason Stop Dose Admin Acetaminophen 650 mg 07/16/23 21:05 07/18/23 08:23 Acetaminophen Tab 325 Mg Tab PO 650 mg Q6HR PRN Administration Mild Pain or Fever > 100.5 Alprazolam 0.25 mg 07/18/23 10:49 Alprazolam 0.25 Mg Tab PO Q6HR PRN Mild Anxiety Alprazolam 0.5 mg 07/18/23 10:49 Alprazolam 0.5 Mg Tab PO Q6HR PRN Moderate Anxiety Aspirin 81 mg 07/17/23 13:00 07/18/23 08:24 Aspirin 81 Mg PO 81 mg DAILY MACARIO Administration Atorvastatin Calcium 40 mg 07/17/23 13:00 07/18/23 08:24 Atorvastatin 40 Mg Tab PO 40 mg DAILY MACARIO Administration Famotidine 20 mg 07/17/23 09:00 07/18/23 08:23 Famotidine 20 Mg/2 Ml Vial IV 20 mg Q12HR MACARIO Administration Furosemide 20 mg 07/17/23 13:00 07/18/23 08:23 Furosemide 10 Mg/Ml 2 Ml Vial IV 20 mg Q12HR MACARIO Administration Heparin Sodium (Porcine) 5,000 unit 07/17/23 09:00 07/18/23 08:23 Heparin Sodium,Porcine 5,000 Unit/Ml 1 Ml Vial SQ 5,000 unit Q12HR MACARIO Administration Heparin Sodium (Porcine) 10, 1,001 mls @ 999 mls/hr 07/19/23 07:00 000 unit/ Sodium Chloride IRRIGATION 07/19/23 23:00 ONCE PRN INTRA-OP Heparin Sodium (Porcine) 2,500 250.5 mls @ 250 mls/hr 07/19/23 07:00 unit/ Sodium Chloride IRRIGATION 07/19/23 23:00 ONCE PRN INTRA-OP Lorazepam 1 mg 07/17/23 10:32 07/17/23 14:52 Lorazepam 2 Mg/Ml Inj IV 1 mg ONCE PRN Administration Anxiety Miscellaneous Information 1 each 07/17/23 09:31 Potassium Replacement Protocol 1 Each [facility] MISCELLANE DAILY PRN Per Protocol Protocol Morphine Sulfate 4 mg 07/16/23 21:05 07/18/23 05:14 Morphine Sulfate 4 Mg/Ml Syringe IV 4 mg Q4HR PRN Administration Severe Pain (Scale 7 to 10) Naloxone HCl 0.2 mg 07/16/23 21:05 Naloxone 0.4 Mg/Ml 1 Ml Vial IV Q2M PRN Opioid Reversal Nitroglycerin 0.4 mg 07/18/23 10:49 Nitroglycerin Sl Tabs 0.4 Mg Tab SUBLINGUAL Q5M PRN Chest Pain Ondansetron HCl 4 mg 07/16/23 21:05 07/17/23 21:19 Ondansetron 4 Mg/2 Ml Vial IVP 4 mg Q8HR PRN Administration Nausea And Vomiting Objective - Vital Signs Vital signs: Vital Signs Temp 97.9 F 07/18/23 08:00 Pulse 68 07/18/23 08:00 Resp 16 07/18/23 08:00 BP 146/75 07/18/23 08:00 Pulse Ox 94 L 07/18/23 08:00 FiO2 Intake & Output 07/17/23 07/18/23 07/18/23 18:59 06:59 18:59 Intake Total 476 Output Total 1000 700 Balance -524 -700 Weight 66.5 kg Intake: Oral 476 Output: Urine 1000 700 Other: Voiding Method Indwelling Catheter Indwelling Catheter Indwelling Catheter - Exam GENERAL: The patient is alert and oriented x3, not in any acute distress. Well developed, well nourished. HEENT: Pupils are round and equally reacting to light. EOMI. No scleral icterus. No conjunctival pallor. Normocephalic, atraumatic. No pharyngeal erythema. No thyromegaly. CARDIOVASCULAR: S1 and S2 present. No murmurs, rubs, or gallops. PULMONARY: Chest is clear to auscultation, no wheezing , no crackles. ABDOMEN: Soft, nontender, nondistended, normoactive bowel sounds. No palpable organomegaly. MUSCULOSKELETAL: No joint swelling or deformity. EXTREMITIES: No cyanosis, clubbing, or pedal edema. Swelling left upper extremity NEUROLOGICAL: Gross neurological examination did not reveal any focal deficits. SKIN: No rashes. no petechiae. - Labs CBC & Chem 7: 07/18/23 08:41 07/18/23 08:41 Labs: Abnormal Lab Results - Last 24 Hours (Table) 07/18/23 Range/Units 08:41 Chloride 109 H (98-107) mmol/L Calcium 7.8 L (8.4-10.2) mg/dL Assessment and Plan Assessment: fall at home without syncope Elevated troponin. Rule out acute coronary syndrome Left upper extremity lymphedema Severe osteoarthritis of fall within the left shoulder, which is end-stage osteoarthritis and bilateral [place] of the left side. Continue with conservative management Peripheral neuropathy history of bilateral breast cancer status post mastectomy and lymph node dissection it also she has chronic left upper extremity lymphedema. Plan: Continue with IV Lasix Discontinue IV fluids Cardizem on the case with possible need for possible cardiac cath Cardiology consult Orthopedic consult with Dr. Ding for her severe osteoarthritis: conservative mx and f/u outpatient for possible joint replacement therapy Labs and medication were reviewed.. Continue same treatment. Continue with symptomatic treatment. Resume home medication. Monitor labs and vitals. DVT and GI prophylaxis. Further recommendations as per clinical course of the patient DVT prophylaxis: Subcutaneous heparin GI Prophylaxis: Pepcid PT/OT: Pending Prognosis is guarded
--- NOTE | 2023-07-18 12:13 | P.PN ---
Subjective Progress Note Date: 07/18/23 Reason for Consult (text): ELEVATED TROPONINS History of present illness: History of present illness: This is an 82-year-old female patient of Dr. Cait Pena with past medical history of hypertension, osteoarthritis, breast cancer, COPD. We have been asked to evaluate the patient for elevated troponins. Patient states that she had a fall at home where she lives alone. She states it was in a cold area and she could not get up. She denies any loss of consciousness. No chest pain or shortness of breath. She states that she had significant weakness. Patient has been seen once by Dr. Cait Pena underwent stress test last year which she states was e ssentially normal. Patient is status post 1 L of IV fluids and potassium replacement ordered. EKG sinus rhythm with tall R wave Chest x-ray: No acute process CT of the brain no acute process Echocardiogram performed 07/17/2023 revealed EF of 55%, mild mitral regurgitation, mild tricuspid regurgitation. Venous Doppler of the left upper extremity negative for DVT WBC initial 11.7 now 7.4 otherwise CBC is unremarkable. INR 1. Potassium 3.1. BUN 21 creatinine 0.49. Liver function tests are normal. CK1 140. Troponin 0.084, 0.058. Urinalysis negative. Magnesium 1.9. Home cardiac medications: Chlorthalidone 25 mg --patient has not started medication 07/17 Patient is seen today in follow-up on the cardiac stepdown unit. She states that her breathing is about the same from yesterday. She continues to have lower extremity edema. Patient was continued on IV fluids at 130 cc/h and we had ordered Lasix 20 mg IV every 12 hours yesterday. Heart rate is in the 60s, blood pressure 146/75, pulse ox 94% on room air. CBC is unremarkable. Creatinine 0.57. Physical examination: Gen: This is an 82-year-old female in no acute distress VS: reviewed HEENT: Head is atraumatic, normocephalic. Pupils equal, round. Sclerae is anicteric. LUNGS: Clear to auscultation. No wheezes or rhonchi. No intercostal retractions. HEART: Regular rate and rhythm. No murmur. EXTREMITIES: 1+ pedal edema. No calf tenderness. NEUROLOGICAL: Patient is awake, alert and oriented x3. Assessment: Mild acute diastolic heart failure Elevated troponins rule out acute coronary syndrome Hypertension Plan: Continue patient's home cardiac medications Continue patient on aspirin 81 mg daily, atorvastatin 40 mg daily Continue patient on IV Lasix 20 mg every 12 hours Monitor I&O, daily weights, electrolytes and renal function Discontinue IV fluids Patient will be scheduled for cardiac catheterization today with Dr. Cait Pena Further recommendations to follow based upon clinical course Nurse practitioner note has been reviewed, I agree with documented findings and plan of care. Patient was seen and examined. Objective - Vital Signs Vital signs: Vital Signs Temp 97.9 F 07/18/23 08:00 Pulse 68 07/18/23 08:00 Resp 16 07/18/23 08:00 BP 146/75 07/18/23 08:00 Pulse Ox 94 L 07/18/23 08:00 FiO2 Intake & Output 07/17/23 07/18/23 07/18/23 18:59 06:59 18:59 Intake Total 476 Output Total 1000 700 Balance -524 -700 Weight 66.5 kg Intake: Oral 476 Output: Urine 1000 700 Other: Voiding Method Indwelling Catheter Indwelling Catheter - Labs CBC & Chem 7: 07/18/23 08:41 07/18/23 08:41
[2023-07-18] MEDS: LIDOCAINE 2% (PF) 20 MG/ML 5 ML VIAL SQ ONE (12:14)
[2023-07-18] MEDS: MIDAZOLAM 2 MG/2 ML VIAL IVP ONE (12:15)
[2023-07-18] MEDS: fentaNYL (PF) 50 MCG/ML 2 ML AMP IVP ONE (12:15)
[2023-07-18] MEDS ORDERED: HEPARIN SODIUM 1,000 UN/ML (10ML VL) ONE (12:16)
[2023-07-18] MEDS: LIDOCAINE 1% INJ 10MG/ML (20 ML MDV) SQ ONE (12:18)
[2023-07-18] MEDS ORDERED: LIDOCAINE 1% INJ 10MG/ML (20 ML MDV) ONE (12:19)
[2023-07-18] MEDS ORDERED: RX INFO: IV CONTRAST WAS GIVEN 1 EACH MISC MISCELLANE PRN (12:47)
[2023-07-18] MEDS: IOPAMIDOL-370 100ML BTL INJ ONE (12:48)
[2023-07-18] MEDS ORDERED: HEPARIN SODIUM 1,000 UN/ML (10ML VL) IV PRN (12:49)
[2023-07-18] MEDS: methylPREDNISolone SOD SUCCI 125 MG/2 ML VIAL ONE (13:12)
[2023-07-18 13:15] LABS: Basophils % (A) 0 %; Eosinophils # (A) 0.1 k/uL (0-0.7); Eosinophils % (A) 1 %; HCT 41.9 % (34.0-46.0); HGB 13.2 gm/dL (11.4-16.0); Hypochromasia Slight; Lymphocytes # (A) 1.4 k/uL (1.0-4.8); Lymphocytes % (A) 17 %; MCH 28.8 pg (25.0-35.0); MCHC 31.4 g/dL (31.0-37.0); MCV 91.7 fL (80.0-100.0); Mean Platelet Volume 7.5; Monocytes # (A) 0.4 k/uL (0-1.0); Monocytes % (A) 5 %; Neutrophils # (A) 6.4 k/uL (1.3-7.7); Neutrophils % (A) 75 %; Platelet Count 220 k/uL (150-450); RBC 4.57 m/uL (3.80-5.40); RDW 13.4 % (11.5-15.5); WBC 8.5 k/uL (3.8-10.6)
[2023-07-18 13:26] LABS: Partial Thromboplastin Time 30.5 sec (22.0-30.0)
--- NOTE | 2023-07-18 13:31 | CC ---
CARDIAC CATHETERIZATION REPORT INDICATIONS: Acute [id number] elevation VT. PROCEDURE NOTE: After obtaining informed consent, left heart catheterization and coronary angiogram were performed via the right femoral artery using standard Libyb catheters. The patient tolerated the procedure well without any obvious immediate complications. A femoral angiogram was performed, and Angio-Seal was deployed for hemostasis. I initially attempted right radial artery access, but was unsuccessful, hence I decided to proceed with the femoral catheterization. The patient has IV dye allergy and she has been prepped with Solu-Medrol and Benadryl prior to catheterization. FINDINGS: 1. Hemodynamics: Left ventricular end-diastolic pressure is 10 to 12 mm. There is no significant gradient across the aortic valve. 2. Left Ventriculogram: Left ventriculogram is not performed. 3. Angiographic Data: a.Right Coronary Artery: Right coronary artery is a large dominant vessel and is free of significant stenosis. Left main coronary artery appears calcified. The distal left main has 60% to 70% stenosis and the stenosis extends into the ostial LAD and circ. She probably has had an area of plaque rupture in this, which is responsible for the [id number] elevation VT. CONCLUSION: Significant distal left main stenosis. The patient is stable hemodynamically and does not have ongoing chest pain. She has normal LV function on the echocardiogram. I reviewed angiographic data with Dr. Iglesias, the on-call executive business coach. I will obtain surgical opinion for possible bypass surgery and if she is not a surgical candidate, Dr. Iglesias will perform stenting of the left main. We will treat her with aggressive medical therapy in the meantime. MMODL / IJN: [id number] /
[2023-07-18] MEDS: CAPSAICIN 0.025% CREAM 60 GM TUBE TOPICAL SCH (13:40)
[2023-07-18] MEDS: NITROGLYCERIN OINT 1 INCH/GM PACKET TOPICAL SCH (16:30)
[2023-07-18] MEDS: HEPARIN SODIUM 1,000 UN/ML (10ML VL) IV ONE (18:18)
[2023-07-18] MEDS: HEPARIN SOD,PORK IN 0.45% NACL 25,000 UNIT in 0.45% NACL 1 250ML.BAG IV SCH (18:18)
--- NOTE | 2023-07-18 18:40 | P.GSCN ---
History of Present Illness Consult date: 07/18/23 Reason for Consult: Coronary artery disease with left main disease Requesting physician: Geoffrey Pena History of present illness: This is an 82-year-old female patient who follows on outpatient basis for her primary care with Dr. Perla Horowitz. She also follows with Dr. Moe Pena for her cardiology care. She has a past medical history significant for hypertension, breast cancer status post double mastectomy, 28 radiation treatments and also received chemotherapy, Parkinson's disease, COPD, peripheral neuropathy, osteoarthritis, urinary incontinence and is a lifetime non-smoker. She presented to the emergency department here at [facility] via EMS on July 16, 2023 after sustaining a fall from standing at home. The patient reports that she was entering her home caring some danielle litter and felt like she missed the last stair and fell. She was able to call a neighbor over for help who subsequently called EMS. She denies any loss of consciousness, bowel or bladder function, denies any recent fever, chills, nausea, vomiting, headache, confusion, constipation, diarrhea, chest pain/pressure, shortness of breath presyncope or syncope. The patient although reports she has had recent swelling to her bilateral ankles and has had significant generalized weakness over the last 3 to 4 weeks. A twelve-lead EKG was completed on admission showing sinus rhythm with tall R waves and a heart rate of 76 bpm. Initial laboratory results showed a WBC count of 11.7, hemoglobin 14.1, hemoglobin 14.1, hematocrit 42.1, platelets 263, PT 10.6, INR 1.0, PTT 25.6, sodium 142, potassium 3.7, chloride 110, BUN 17, creatinine 0.49, glucose 90, plasmic lactic acid venous 1.2, calcium 9.6, phosphorus 1.8, AST 33, ALT 14, creatinine kinase 140, and positive serial troponins as high as 0.084. A chest x-ray was completed which showed hyperinflation, which could represent underlying emphysem a, left apical pleural parenchymal scarring and no acute cardiopulmonary process. Subsequently, due to the findings of elevated troponins a consult was placed to Dr. Dee handley from cardiology and a transthoracic 2D echocardiogram was completed. The transthoracic 2D echocardiogram demonstrated a normal left ventricular ejection fraction estimated at 55%, moderate mitral annular calcification, mild mitral valve regurgitation, mild tricuspid valve regurgitation, no pericardial effusion and a normal size aortic root and proximal ascending aorta. The patient also underwent an MRI of her brain witho ut contrast which demonstrated patchy chronic appearing periventricular white matter ischemic type changes with atrophy and no intracranial process. Due to the patient's elevated troponins she was recommended to undergo a cardiac catheterization which was completed today and demonstrated no significant gradient across her aortic valve, a 60 to 70% stenosis to her left main coronary artery, and a stenosis extending into the ostial LAD and circumflex coronary arteries. The catheterization report also shows an area of plaque rupture which could be responsible for the non-ST elevated myocardial infarction. Subsequently, due to the findings on the cardiac catheterization a consult was placed to Dr. Tod Rodriges from cardiothoracic surgery for further evaluation and treatment recommendations including my cardiovascular disease and surgery. Review of Systems A 14 point review of systems was completed and was negative except as mentioned in the HPI. Past Medical History Past Medical History: Cancer (Breast cancer), COPD, Hypertension, Neurologic Disorder, Osteoarthritis (OA) Additional Past Medical History / Comment(s): breast cancer r breast 1993, left breast cancer 1999, chronic pulmonary edema, right breast removed in 1993, left breast removed 2011, Parkinsons History of Any Multi-Drug Resistant Organisms: None Reported Past Surgical History: Cholecystectomy, Hysterectomy, Joint Replacement Additional Past Surgical History / Comment(s): bilateral mastectomy, bilater knee replacement Past Anesthesia/Blood Transfusion Reactions: No Reported Reaction Past Psychological History: No Psychological Hx Reported Smoking Status: Never smoker Past Alcohol Use History: None Reported Past Drug Use History: None Reported - Past Family History Mother Family Medical History: Cancer (Breast cancer and a tumor behind her eye) Father Family Medical History: Cancer (Stomach cancer) Sister(s) Family Medical History: Cancer (Breast cancer) Medications and Allergies Home Medications Medication Instructions Recorded Confirmed Type Chlorthalidone [Hygroton] 25 mg PO DIRECTED 07/16/23 07/16/23 History Pregabalin [Lyrica] 25 mg PO DIRECTED 07/16/23 07/16/23 History Allergies Allergy/AdvReac Type Severity Reaction Status Date / Time amlodipine Allergy Nausea Verified 07/16/23 20:01 carbidopa [From Sinemet] Allergy Unknown Verified 07/16/23 20:01 chlorthalidone Allergy Swelling Verified 07/16/23 20:01 of arm clonidine Allergy sweliing Verified 07/16/23 20:01 Iodinated Contrast Media Allergy Anaphylaxis Verified 07/16/23 20:01 [Iodinated Contrast Media - IV Dye] levodopa [From Sinemet] Allergy Unknown Verified 07/16/23 20:01 metoprolol Allergy Swelling Verified 07/16/23 20:01 left arm, nauea, sore throat pilocarpine Allergy Rash/Hives Verified 07/16/23 20:01 Tetracyclines Allergy Swelling Verified 07/16/23 20:01 venom-honey bee Allergy Rash/Hives Verified 07/16/23 20:01 [bee venom (honey bee)] furosemide [From Lasix] AdvReac Nausea & Verified 07/16/23 20:01 Vomiting primidone [From Mysoline] AdvReac Unknown Verified 07/16/23 20:01 ropinirole [From Requip] AdvReac Nausea & Verified 07/16/23 20:01 Vomiting Surgical - Exam Vital Signs Temp Pulse Resp BP Pulse Ox 96.4 F L 81 20 188/87 98 07/16/23 17:25 07/16/23 17:25 07/16/23 17:25 07/16/23 17:25 07/16/23 17:25 - General well developed, well nourished, no distress, no pain, chronically ill - Eyes PERRL, normal ocular movement, no pale, no icteric - ENT normal pinna, normal nares, normal mucosa, no hearing loss, no congestion, no dentures - Neck Neck is supple, no JVD, no lymphadenopathy. no masses, no bruits, trachea midline, no venous distension - Respiratory Lung sounds essentially clear throughout. No wheezes, rhonchi or crackles. Respirations are symmetrical and nonlabored. - Cardiovascular Regular rhythm and rate. S1 and S2 present, negative for S3, gallop or murmur. - Abdomen Abdomen is soft, nontender and nondistended. Active bowel sounds present all 4 abdominal quadrants. - Genitourinary Hensley catheter in place for chronic urinary incontinence - Rectum Deferred - Integumentary Skin is warm and dry. No clubbing or cyanosis is present. +1 edema to her bilateral ankles and feet. no rash, no growths, no abnormal pigmentation - Neurologic Cranial nerves II through XII intact. No focal deficits. - Musculoskeletal Moves all 4 extremities with equal strength bilateral. - Psychiatric oriented to time, oriented to person, oriented to place, speech is normal, memory intact Results - Labs 07/19/23 01:11 07/18/23 08:41 Abnormal Lab Results - Last 24 Hours (Table) 07/18/23 07/18/23 Range/Units 08:41 12:59 APTT 30.5 H (22.0-30.0) sec Chloride 109 H (98-107) mmol/L Calcium 7.8 L (8.4-10.2) mg/dL Diabetes panel 07/18/23 Range/Units 08:41 Sodium 138 (137-145) mmol/L Potassium 3.8 (3.5-5.1) mmol/L Chloride 109 H (98-107) mmol/L Carbon Dioxide 24 (22-30) mmol/L BUN 15 (7-17) mg/dL Creatinine 0.57 (0.52-1.04) mg/dL Glucose 84 (74-99) mg/dL Calcium 7.8 L (8.4-10.2) mg/dL Calcium panel 07/18/23 Range/Units 08:41 Calcium 7.8 L (8.4-10.2) mg/dL Pituitary panel 07/18/23 Range/Units 08:41 Sodium 138 (137-145) mmol/L Potassium 3.8 (3.5-5.1) mmol/L Chloride 109 H (98-107) mmol/L Carbon Dioxide 24 (22-30) mmol/L BUN 15 (7-17) mg/dL Creatinine 0.57 (0.52-1.04) mg/dL Glucose 84 (74-99) mg/dL Calcium 7.8 L (8.4-10.2) mg/dL Adrenal panel 07/18/23 Range/Units 08:41 Sodium 138 (137-145) mmol/L Potassium 3.8 (3.5-5.1) mmol/L Chloride 109 H (98-107) mmol/L Carbon Dioxide 24 (22-30) mmol/L BUN 15 (7-17) mg/dL Creatinine 0.57 (0.52-1.04) mg/dL Glucose 84 (74-99) mg/dL Calcium 7.8 L (8.4-10.2) mg/dL - Imaging Chest x-ray: report reviewed, image reviewed EKG: image reviewed Assessment and Plan Assessment: Coronary artery disease with left main disease Non-ST elevated myocardial infarction this admission, elevated troponins as high as 0.084 Hypertension History of breast cancer, status post bilateral mastectomy, chemotherapy and 28 radiation treatments Parkinson disease COPD Peripheral neuropathy Osteoarthritis Urinary incontinence Lifetime non-smoker Plan: The patient was seen and examined at her bedside on the third floor cardiac stepdown unit. Her chart and diagnostics were reviewed. Her case was discussed in detail with Dr. Tod Rodriges from cardiothoracic surgery. Usual course of myocardial revascularization surgery was discussed with the patient. The patien josep wishes to talk to her nephew before proceeding with any preoperative workup. Medical management and other comorbidities per primary care service and cardiology service. Continue maximize medical management with aspirin, statin and beta-pam. More recommendations to follow based on patient's clinical course and after she discusses her care with her nephew. Thank you Dr. Pena for this consult and we look forward to working with you in the care of this patient. I have personally seen and examined the patient, performed the documentation and the assessment and plan as written. Number of minutes spent on the visit: 30. THEO Roberts Attending Addendum: Pt seen and evaluated with SENIOR IT SPECIALIST above. Agree with his assessment and plan. This is an 82 year-old F with a hx of Parkinson's who pre sents with syncope. Cardiac angiography reveals a calcified lesion in the left main. Given her frailty and lack of good family/social support I do not think she will do well with CABG. Recommend PCI vs medical therapy. I spent 45 minutes reviewing the data and discussing the findings and plan with the patient and the care team. Time with Patient: Greater than 30
--- NOTE | 2023-07-18 20:21 | P.CONS ---
History of Present Illness - Reason for Consult Consult date: 07/18/23 ADIN lymphedema Requesting physician: Nishant José Sheet - Chief Complaint fall - History of Present Illness Patient is an 82 year old female with a remote history of breast cancer. She has been a patient of Dr. Luu. Has a remote history of right breast in 1993 for which she had a mastectomy. She did not have adjuvant treatment. She had been undergoing routine mammographies. However,in , she felt a mass in her left breast and had further imaging studies including ultrasound which showed a suspicious lesion. She had excisional biopsy which confirmed invasive cancer. She had a bone scan followed by ribs and shoulder xray which were negative. She also had a PET scan which showed suspicious uptake in her nasopharynx. She had ENT evaluation and felt to be normal. She had a left mastectomy and axillary nodes dissection on 08/07/2011. Her final pathology r eport revealed a T4bN2a invasive carcinoma,ER/NY positive and HER2/CHANI negative by FISH. She started adjuvant TC on 09/26/2011.She completed 4 cycles on 11/28/2011. We decided to stop at cycle#4 due to progressive side effects. She completed adjuvant radiation therapy on 02/07/2012. Bone density in showed mild osteopenia. Due to side effects patient was on multiple aromatase inhibitors and tamoxifen but she ended up stopping medications due to adverse side effects in 2013. She had followed up in clinic for observation and had no recurrence of disease but stopped following up in December 2019. Patient presented to the emergency room for fall. Consult was placed for bilateral upper extremity lymphedema. Upon admission serial troponins elevated. Coags normal. CBC reviewed, WBC 8.5, hemoglobin 13.2, platelets 220,000. Creatinine 0.49, GFR greater than 90. Left upper extremity Doppler negative for acute DVT. Due to the patient's elevated troponins she underwent cardiac c atheterization which showed no significant gradient across her aortic valve, a 60 to 70% stenosis to her left main coronary artery, and a stenosis extending into the distal LAD and circumflex coronary arteries. The catheterization report also shows an area of plaque rupture which could be responsible for the non-ST elevated myocardial infarction. Cardiology and CTS following. Review of Systems 10 point ROS is negative except as stated in the HPI Past Medical History Past Medical History: COPD, Hypertension Additional Past Medical History / Comment(s): breast cancer r breast 1993, left breast cancer 1999, chronic pulmonary edema, right breast removed in 1993, left breast removed 2011, Parkinsons History of Any Multi-Drug Resistant Organisms: None Reported Past Surgical History: Cholecystectomy, Hysterectomy, Joint Replacement Additional Past Surgical History / Comment(s): bilateral mastectomy, bilater knee replacement Past Psychological History: No Psychological Hx Reported Smoking Status: Never smoker Past Alcohol Use History: None Reported Past Drug Use History: None Reported - Past Family History Mother Family Medical History: Cancer (Breast cancer and a tumor behind her eye) Father Family Medical History: Cancer (Stomach cancer) Sister(s) Family Medical History: Cancer (Breast cancer) Medications and Allergies Home Medications Medication Instructions Recorded Confirmed Type Chlorthalidone [Hygroton] 25 mg PO DIRECTED 07/16/23 07/16/23 History Pregabalin [Lyrica] 25 mg PO DIRECTED 07/16/23 07/16/23 History Allergies Allergy/AdvReac Type Severity Reaction Status Date / Time amlodipine Allergy Nausea Verified 07/16/23 20:01 carbidopa [From Sinemet] Allergy Unknown Verified 07/16/23 20:01 chlorthalidone Allergy Swelling Verified 07/16/23 20:01 of arm clonidine Allergy sweliing Verified 07/16/23 20:01 Iodinated Contrast Media Allergy Anaphylaxis Verified 07/16/23 20:01 [Iodinated Contrast Media - IV Dye] levodopa [From Sinemet] Allergy Unknown Verified 07/16/23 20:01 metoprolol Allergy Swelling Verified 07/16/23 20:01 left arm, nauea, sore throat pilocarpine Allergy Rash/Hives Verified 07/16/23 20:01 Tetracyclines Allergy Swelling Verified 07/16/23 20:01 venom-honey bee Allergy Rash/Hives Verified 07/16/23 20:01 [bee venom (honey bee)] furosemide [From Lasix] AdvReac Nausea & Verified 07/16/23 20:01 Vomiting primidone [From Mysoline] AdvReac Unknown Verified 07/16/23 20:01 ropinirole [From Requip] AdvReac Nausea & Verified 07/16/23 20:01 Vomiting Physical Exam Vitals: Vital Signs Temp Pulse Pulse Resp BP BP Pulse Ox 07/18/23 16:00 97.4 F L 18 128/77 95 07/18/23 14:00 16 03/01/24 12:00 98.1 F 16 134/76 96 07/18/23 08:00 97.9 F 68 16 146/75 94 L 07/18/23 04:00 98.0 F 69 16 142/69 96 07/18/23 00:00 97.8 F 76 16 127/69 96 07/17/23 22:00 97.9 F 71 16 145/74 95 07/17/23 20:00 67 17 117/64 07/17/23 18:00 70 15 117/64 Intake and Output 07/18/23 07/18/23 07/18/23 06:59 14:59 22:59 Intake Total 100 Output Total 700 Balance -700 100 Intake: IV 100 Output: Urine 700 Other: Voiding Method Indwelling Catheter Indwelling Catheter Weight 66.5 kg - Constitutional General appearance: no acute distress - EENT Eyes: anicteric sclerae, EOMI - Respiratory inspiratory rales - Cardiovascular Rhythm: regular Heart sounds: normal: S1, S2 leg Peripheral Edema: bilateral: 1+, Pitting, Other (BUE lymphedema, L>R) - Gastrointestinal General gastrointestinal: soft, no tenderness - Integumentary Integumentary: no cyanotic - Psychiatric Psychiatric: A&O x's 3 Results CBC & Chem 7: 07/19/23 01:11 07/18/23 08:41 Labs: Abnormal Lab Results - Last 24 Hours (Table) 07/18/23 07/18/23 Range/Units 08:41 12:59 APTT 30.5 H (22.0-30.0) sec Chloride 109 H (98-107) mmol/L Calcium 7.8 L (8.4-10.2) mg/dL Venous US: report reviewed Assessment and Plan (1) Lymphedema Current Visit: Yes Status: Acute Priority: Medium Code(s): I89.0 - LYMPHEDEMA, NOT ELSEWHERE CLASSIFIED SNOMED Code(s): 033136406 (2) Fall Current Visit: Yes Status: Acute Priority: Medium Code(s): W19.XXXA - UNSPECIFIED FALL, INITIAL ENCOUNTER SNOMED Code(s): 5954957 (3) Weakness Current Visit: Yes Status: Acute Priority: Medium Code(s): R53.1 - WEAKNESS SNOMED Code(s): 04128165 (4) Elevated troponin Current Visit: Yes Status: Acute Priority: High Code(s): R79.89 - OTHER SPECIFIED ABNORMAL FINDINGS OF BLOOD CHEMISTRY SNOMED Code(s): 623013025 Plan: Elevated troponins: -Upon admission serial troponins elevated. Coags normal. Due to the patient's elevated troponins she underwent cardiac catheterization which showed no significant gradient across her aortic valve, a 60 to 70% stenosis to her left main coronary artery, and a stenosis extending into the distal LAD and circumflex coronary arteries. The catheterization report also shows an area of plaque rupture which could be responsible for the non-ST elevated myocardial infarction. -Defer management to Cardiology and CTS Lymphedema: -Has a remote history of right breast in 1993 for which she had a mastectomy. She did not have adjuvant treatment. In , she felt a mass in her left breast and had further imaging studies including ultrasound which showed a suspicious lesion. She had excisional biopsy which confirmed invasive cancer. She had a left mastectomy and axillary nodes dissection on 08/07/2011. Her final pathology report revealed a T4bN2a invasive carcinoma,ER/NY positive and HER2/CHANI negative by FISH. She started adjuvant TC on 09/26/2011. She completed 4 cycles on 11/28/2011. We decided to stop at cycle#4 due to progressive side effects. She completed adjuvant radiation therapy on 02/07/2012. Due to side effects patient was on multiple aromatase inhibitors and tamoxifen but she ended up stopping medications due to adverse side effects in 2013. She had followed up in clinic for observation and had no recurrence of disease but stopped following up in December 2019. -Upon admission left upper extremity doppler negative for acute DVT -Lymphedema chronic, no noted acute findings of DVT in LUE. Will refer patient to lymphedema clinic -No inpatient interventions required from an oncology perspective at this time attests: I have performed H&P and developed impression and plan of care for patient, discussed with dictator. I agree with dictated note, documented as a scribe
[2023-07-19 01:42] LABS: Basophils % (A) 0 %; Eosinophils % (A) 0 %; HCT 37.9 % (34.0-46.0); HGB 12.5 gm/dL (11.4-16.0); Lymphocytes # (A) 0.7 k/uL (1.0-4.8); Lymphocytes % (A) 11 %; MCH 29.5 pg (25.0-35.0); MCHC 33.1 g/dL (31.0-37.0); Mean Platelet Volume 7.8; Monocytes # (A) 0.2 k/uL (0-1.0); Monocytes % (A) 3 %; Neutrophils # (A) 5.3 k/uL (1.3-7.7); Neutrophils % (A) 85 %; Platelet Count 234 k/uL (150-450); RBC 4.25 m/uL (3.80-5.40); RDW 13.6 % (11.5-15.5); WBC 6.2 k/uL (3.8-10.6)
[2023-07-19 02:23] LABS: Partial Thromboplastin Time 98.5 sec (22.0-30.0); Prothrombin Time 11.1 sec (10.0-12.5)
[2023-07-19] MEDS ORDERED: HEPARIN SODIUM,PORCINE 10,000 UNIT in SODIUM CHLORIDE 0.9% 1,000 ML IRRIGATION PRN (07:00)
[2023-07-19] MEDS ORDERED: HEPARIN SODIUM,PORCINE (1 ML) 2,500 UNIT in SODIUM CHLORIDE 0.9% 250 ML IRRIGATION PRN (07:00)
--- NOTE | 2023-07-19 08:50 | P.PN ---
Subjective Progress Note Date: 07/19/23 Principal diagnosis: Acute coronary syndrome The patient is an 82-year-old female patient with a past medical history significant for hypertension and dyslipidemia who was admitted to the hospital after she fell at home. She was ruled in for acute coronary syndrome. She underwent a heart catheterization yesterday and that revealed severe disease involving the left main coronary artery and surgical consult was placed and the patient is in process to be seen by the surgeon. July 19, 2023 The patient was seen and evaluated this morning. She is asymptomatic. She is hemodynamically stable. She is on aspirin and she is on a statin. She is not on beta-pam because of the marginally low heart rate. From a cardiovascular standpoint of view, I would continue the current medical regimen and awaiting the patient to be evaluated by the surgeon. The echo showed normal LV systolic function. The examination showed regular rhythm with a systolic murmur and clear breathing sounds bilaterally and no lower extremities edema noted Assessment Acute coronary syndrome Severe coronary artery disease as described above Hypertension Dyslipidemia Plan Continue the current medical regimen including aspirin and statin Further recommendation to follow the surgical evaluation Objective - Vital Signs Vital signs: Vital Signs Temp 97.5 F L 07/18/23 20:00 Pulse 67 07/19/23 04:00 Resp 16 07/19/23 04:00 BP 136/63 07/19/23 04:00 Pulse Ox 97 07/19/23 04:00 FiO2 Intake & Output 07/18/23 07/19/23 07/19/23 18:59 06:59 18:59 Intake Total 104.522 80.132 Output Total 1850 Balance 104.522 -1769.868 Intake: IV 100 Intake, IV Titration 4.522 80.132 Amount Heparin Sod,Pork in 0.45% 4.522 80.132 NaCl 25,000 unit In 0.45 % NaCl 1 250ml.bag @ 12 UNITS/KG/HR 7.98 mls/hr IV .Q24H MACARIO Rx#: [id number] Output: Urine 1850 Other: Voiding Method Indwelling Catheter Indwelling Catheter - Labs CBC & Chem 7: 07/19/23 01:11 07/18/23 08:41 Labs: Abnormal Lab Results - Last 24 Hours (Table) 07/18/23 07/18/23 07/19/23 Range/Units 08:41 12:59 01:11 Lymphocytes # 0.7 L (1.0-4.8) k/uL APTT 30.5 H (22.0-30.0) sec Chloride 109 H (98-107) mmol/L Calcium 7.8 L (8.4-10.2) mg/dL 07/19/23 Range/Units 01:11 Lymphocytes # (1.0-4.8) k/uL APTT 98.5 H (22.0-30.0) sec Chloride (98-107) mmol/L Calcium (8.4-10.2) mg/dL
--- NOTE | 2023-07-19 11:12 | P.PN ---
Subjective This is a pleasant 82 years old female with past medical history of bilateral breast cancer status post mastectomy and lymph node dissection it also she has chronic left upper extremity lymphedema. However it looks warmer compared to the right side. Patient lives alone at her apartment and she was cleaning her Disposal going from outside into the house where she has to steps, patient thinks she fell without dizziness or syncope because of her peripheral neuropathy and severe osteoarthritis. Patient states that she has history of neuropathy for 2-3 years and she follows up with Dr. Mac. Also she has severe osteoarthritis and should pose supposed to have surgery with Dr. Ding. She thinks her left knee has more severe osteoarthritis of the right knee, there is scar from previous all surgery on the right knee as well Patient denies headache, confusion, no Tingling or numbness, new weakness Patient denies dysuria or urgency. Hensley catheter was placed in emergency room. Patient also with no abdominal pain and diarrhea or vomiting. She denies smoking alcohol or illicit drugs Patient hemodynamically stable. CBC, INR is unremarkable pt has mild leukocytosis of 11.7 came back down to 7.4 BMP, liver enzymes, is unremarkable Creatinine kinase 140, lactic acid 1.2. Urine analysis is negative area Hensley catheter was placed in emergency room because patient was mildly hypothermic on admission Troponin is elevated 0.08 CT of the brain and cervical spine showing no acute process in either but there is degenerative changes with bilateral apical calcified granuloma of the lungs and questionable esophageal thickening X-ray of the knee shoulder and pelvis showing no acute fracture or dislocation but end-stage [id number], glenohumeral joint 05/21/2023 Patient is awake alert and baseline No chest pain or dyspnea She has difficulty moving because of pain in her shoulders and her left knee related to her severe end-stage osteoarthritis. Patient was evaluated by orthopedic team recommended pain management and possible steroid injection but definitive treatment will be replacement therapy which patient is to follow up for it as an outpatient currently. IV fluids was discontinued and placed on IV Lasix 20 mg twice daily. Aspirin 81 mg Lipitor added Cardiology team R following closely for possible cardiac cath Check ultrasound of the left upper extremity is negative DVT Check MRI of the brain is negative for acute process or mets per report Also consult oncology team for her left upper extremity lymphedema related to her breast cancer I called oncology office and looks like patient hasn't had follow-up for the last 4 years. Therefore going to consult oncology team Case was discussed with cardiology 07/19/2023 Patient with no chest pain, no dyspnea Patient had cardiac cath yesterday showing left main coronary artery disease Cardiothoracic surgery evaluated the patient pending further workup based upon patient wishes after discussing with her family oncology team already evaluated the patient for her history of breast cancer and they recommended outpatient follow-up for his chronic left upper extremity lymphedema. No further workup as inpatient Objective - Vital Signs Vital signs: Vital Signs Temp 97.5 F L 07/18/23 20:00 Pulse 73 07/19/23 08:00 Resp 16 07/19/23 08:00 BP 136/63 07/19/23 08:00 Pulse Ox 97 07/19/23 08:00 FiO2 Intake & Output 07/18/23 07/19/23 07/19/23 18:59 06:59 18:59 Intake Total 104.522 80.132 540 Output Total 1850 400 Balance 104.522 -1769.868 140 Intake: IV 100 Intake, IV Titration 4.522 80.132 Amount Heparin Sod,Pork in 0.45% 4.522 80.132 NaCl 25,000 unit In 0.45 % NaCl 1 250ml.bag @ 12 UNITS/KG/HR 7.98 mls/hr IV .Q24H [facility] Rx#: [id number] Oral 540 Output: Urine 1850 400 Other: Voiding Method Indwelling Catheter Indwelling Catheter # Bowel Movements 1 - Exam GENERAL: The patient is alert and oriented x3, not in any acute distress. Well developed, well nourished. HEENT: Pupils are round and equally reacting to light. EOMI. No scleral icterus. No conjunctival pallor. Normocephalic, atraumatic. No pharyngeal erythema. No thyromegaly. CARDIOVASCULAR: S1 and S2 present. No murmurs, rubs, or gallops. PULMONARY: Chest is clear to auscultation, no wheezing , no crackles. ABDOMEN: Soft, nontender, nondistended, normoactive bowel sounds. No palpable organomegaly. MUSCULOSKELETAL: No joint swelling or deformity. EXTREMITIES: No cyanosis, clubbing, or pedal edema. Swelling left upper extremity NEUROLOGICAL: Gross neurological examination did not reveal any focal deficits. SKIN: No rashes. no petechiae. - Labs CBC & Chem 7: 07/19/23 01:11 07/18/23 08:41 Labs: Abnormal Lab Results - Last 24 Hours (Table) 07/18/23 07/19/23 07/19/23 Range/Units 12:59 01:11 01:11 Lymphocytes # 0.7 L (1.0-4.8) k/uL APTT 30.5 H 98.5 H (22.0-30.0) sec 07/19/23 Range/Units 08:43 Lymphocytes # (1.0-4.8) k/uL APTT 94.0 H (22.0-30.0) sec Assessment and Plan Assessment: Severe left main coronary artery disease, to be evaluated for bypass procedure fall at home without syncope Left upper extremity lymphedema, chronic follow-up outpatient Severe osteoarthritis of fall within the left shoulder, which is end-stage osteoarthritis and bilateral [place] of the left side. Continue with conservative management Peripheral neuropathy history of bilateral breast cancer status post mastectomy and lymph node dissection it also she has chronic left upper extremity lymphedema. Plan: Cardiothoracic surgery evaluation for her severe coronary artery disease On aspirin 81 mg added during this admission as well as Lipitor Continue with IV Lasix Discontinue IV fluids Cardiology consult Orthopedic consult with Dr. Ding for her severe osteoarthritis: conservative mx and f/u outpatient for possible joint replacement therapy Labs and medication were reviewed.. Continue same treatment. Continue with symptomatic treatment. Resume home medication. Monitor labs and vitals. DVT and GI prophylaxis. Further recommendations as per clinical course of the patient DVT prophylaxis: Subcutaneous heparin GI Prophylaxis: Pepcid PT/OT: Pending Prognosis is guarded
[2023-07-20] MEDS: ALPRAZolam 0.25 MG TAB PO PRN (01:47)
--- NOTE | 2023-07-20 09:23 | P.PN ---
Subjective Progress Note Date: 07/20/23 Principal diagnosis: Acute coronary syndrome The patient is an 82-year-old female patient with a past medical history significant for hypertension and dyslipidemia who was admitted to the hospital after she fell at home. She was ruled in for acute coronary syndrome. She underwent a heart catheterization yesterday and that revealed severe disease involving the left main coronary artery and surgical consult was placed and the patient is in process to be seen by the surgeon. July 19, 2023 The patient was seen and evaluated this morning. She is asymptomatic. She is hemodynamically stable. She is on aspirin and she is on a statin. She is not on beta-pam because of the marginally low heart rate. From a cardiovascular standpoint of view, I would continue the current medical regimen. The patient was seen by the surgical team and she deemed to be high risk for open heart surgery. The echo showed normal LV systolic function. The examination showed regular rhythm with a systolic murmur and clear breathing sounds bilaterally and no lower extremities edema noted July 20, 2023 The patient was seen and evaluated this morning. She is asymptomatic. No pain in the chest and no shortness of breath and no dizziness or lightheadedness and no feeling of heart racing or fluttering and no presyncope or syncope. The patient was seen by the surgical team and she was deemed to be high risk for open heart surgery. Currently she is asymptomatic. The echo showed normal LV systolic function. She is on aspirin and she is on statin. She is allergic to beta-pam. I discussed the case with the patient in details. Because she is not experiencing any symptoms of chest pain or chest discomfort and no shortness of breath and because of Parkinson disease and limited functional capacity I advised the patient to be treated medically at this point and to follow-up with Dr. Treviño in the office as an outpatient and she is in full understanding and agreement. I would not pursue any stenting at this point. The examination is remarkable for regular rhythm with a systolic murmur and clear breathing sounds bilaterally and no edema was noted. Assessment Acute coronary syndrome Severe coronary artery disease as described above Hypertension Dyslipidemia Plan Continue the current medical regimen including aspirin and statin DC heparin Potential discharge in the next 24 hours Follow-up with the patient Objective - Vital Signs Vital signs: Vital Signs Temp 97.6 F 07/20/23 04:00 Pulse 78 07/20/23 04:00 Resp 16 07/20/23 04:00 BP 129/66 07/20/23 04:00 Pulse Ox 98 07/20/23 04:00 FiO2 Intake & Output 07/19/23 07/20/23 07/20/23 18:59 06:59 18:59 Intake Total 769.975 Output Total 875 1000 Balance -105.025 -1000 Intake: Intake, IV Titration 111.975 Amount Heparin Sod,Pork in 0.45% 111.975 NaCl 25,000 unit In 0.45 % NaCl 1 250ml.bag @ 12 UNITS/KG/HR 7.98 mls/hr IV .Q24H [facility] Rx#: [id number] Oral 658 Output: Urine 875 1000 Other: Voiding Method Indwelling Catheter Indwelling Catheter # Bowel Movements 1 - Labs CBC & Chem 7: 07/19/23 01:11 07/18/23 08:41 Labs: Abnormal Lab Results - Last 24 Hours (Table) 07/19/23 Range/Units 17:59 APTT 54.7 H (22.0-30.0) sec
--- NOTE | 2023-07-20 15:31 | P.PN ---
Subjective This is a pleasant 82 years old female with past medical history of bilateral breast cancer status post mastectomy and lymph node dissection it also she has chronic left upper extremity lymphedema. However it looks warmer compared to the right side. Patient lives alone at her apartment and she was cleaning her Disposal going from outside into the house where she has to steps, patient thinks she fell without dizziness or syncope because of her peripheral neuropathy and severe osteoarthritis. Patient states that she has history of neuropathy for 2-3 years and she follows up with Dr. Mac. Also she has severe osteoarthritis and should pose supposed to have surgery with Dr. Ding. She thinks her left knee has more severe osteoarthritis of the right knee, there is scar from previous all surgery on the right knee as well Patient denies headache, confusion, no Tingling or numbness, new weakness Patient denies dysuria or urgency. Hensley catheter was placed in emergency room. Patient also with no abdominal pain and diarrhea or vomiting. She denies smoking alcohol or illicit drugs Patient hemodynamically stable. CBC, INR is unremarkable pt has mild leukocytosis of 11.7 came back down to 7.4 BMP, liver enzymes, is unremarkable Creatinine kinase 140, lactic acid 1.2. Urine analysis is negative area Hensley catheter was placed in emergency room because patient was mildly hypothermic on admission Troponin is elevated 0.08 CT of the brain and cervical spine showing no acute process in either but there is degenerative changes with bilateral apical calcified granuloma of the lungs and questionable esophageal thickening X-ray of the knee shoulder and pelvis showing no acute fracture or dislocation but end-stage [id number], glenohumeral joint 05/21/2023 Patient is awake alert and baseline No chest pain or dyspnea She has difficulty moving because of pain in her shoulders and her left knee related to her severe end-stage osteoarthritis. Patient was evaluated by orthopedic team recommended pain management and possible steroid injection but definitive treatment will be replacement therapy which patient is to follow up for it as an outpatient currently. IV fluids was discontinued and placed on IV Lasix 20 mg twice daily. Aspirin 81 mg Lipitor added Cardiology team R following closely for possible cardiac cath Check ultrasound of the left upper extremity is negative DVT Check MRI of the brain is negative for acute process or mets per report Also consult oncology team for her left upper extremity lymphedema related to her breast cancer I called oncology office and looks like patient hasn't had follow-up for the last 4 years. Therefore going to consult oncology team Case was discussed with cardiology 07/19/2023 Patient with no chest pain, no dyspnea Patient had cardiac cath yesterday showing left main coronary artery disease Cardiothoracic surgery evaluated the patient pending further workup based upon patient wishes after discussing with her family oncology team already evaluated the patient for her history of breast cancer and they recommended outpatient follow-up for his chronic left upper extremity lymphedema. No further workup as inpatient 07/20/2023 So with no chest pain or dyspnea No new complaints Patient evaluated by cardiac and cardiothoracic surgery team for her left main coronary artery disease Heparin drip was discontinued and patient placed on subcutaneous heparin Currently she is on aspirin 81 mg and statin Objective - Vital Signs Vital signs: Vital Signs Temp 97.6 F 07/20/23 04:00 Pulse 78 07/20/23 04:00 Resp 16 07/20/23 04:00 BP 129/66 07/20/23 04:00 Pulse Ox 98 07/20/23 04:00 FiO2 Intake & Output 07/19/23 07/20/23 07/20/23 18:59 06:59 18:59 Intake Total 769.975 480 Output Total 875 1000 725 Balance -105.025 -1000 -245 Intake: Intake, IV Titration 111.975 Amount Heparin Sod,Pork in 0.45% 111.975 NaCl 25,000 unit In 0.45 % NaCl 1 250ml.bag @ 12 UNITS/KG/HR 7.98 mls/hr IV .Q24H [facility] Rx#: [id number] Oral 658 480 Output: Urine 875 1000 725 Other: Voiding Method Indwelling Catheter Indwelling Catheter # Bowel Movements 1 - Exam GENERAL: The patient is alert and oriented x3, not in any acute distress. Well d eveloped, well nourished. HEENT: Pupils are round and equally reacting to light. EOMI. No scleral icterus. No conjunctival pallor. Normocephalic, atraumatic. No pharyngeal erythema. No thyromegaly. CARDIOVASCULAR: S1 and S2 present. No murmurs, rubs, or gallops. PULMONARY: Chest is clear to auscultation, no wheezing , no crackles. ABDOMEN: Soft, nontender, nondistended, normoactive bowel sounds. No palpable organomegaly. MUSCULOSKELETAL: No joint swelling or deformity. EXTREMITIES: No cyanosis, clubbing, or pedal edema. Swelling left upper extremity NEUROLOGICAL: Gross neurological examination did not reveal any focal deficits. SKIN: No rashes. no petechiae. - Labs CBC & Chem 7: 07/19/23 01:11 07/18/23 08:41 Labs: Abnormal Lab Results - Last 24 Hours (Table) 07/19/23 Range/Units 17:59 APTT 54.7 H (22.0-30.0) sec Assessment and Plan Assessment: Severe left main coronary artery disease, to be evaluated for bypass procedure fall at home without syncope Left upper extremity lymphedema, chronic follow-up outpatient Severe osteoarthritis of fall within the left shoulder, which is end-stage osteoarthritis and bilateral [place] of the left side. Continue with conservative management Peripheral neuropathy history of bilateral breast cancer status post mastectomy and lymph node dissection it also she has chronic left upper extremity lymphedema. Plan: Cardiothoracic surgery evaluation for her severe coronary artery disease On aspirin 81 mg added during this admission as well as Lipitor Continue with IV Lasix Cardiology consult Orthopedic consult with Dr. Ding for her severe osteoarthritis: conservative mx and f/u outpatient for possible joint replacement therapy Labs and medication were reviewed.. Continue same treatment. Continue with symptomatic treatment. Resume home medication. Monitor labs and vitals. DVT and GI prophylaxis. Further recommendations as per clinical course of the patient DVT prophylaxis: Subcutaneous heparin GI Prophylaxis: Pepcid PT/OT: Pending Prognosis is guarded
[2023-07-20] MEDS: HEPARIN SODIUM,PORCINE 5,000 UNIT/ML 1 ML VIAL SQ SCH (20:30)
[2023-07-21 00:37] VITALS: RESP 18
[2023-07-21 09:08] VITALS: BP 170/72; PULSE 54; TEMP 98.1
[2023-07-21] MEDS: CLOPIDOGREL 75 MG TAB PO SCH (11:59)
[2023-07-21] MEDS: lisinopriL 5 MG TAB PO SCH (11:59)
--- NOTE | 2023-07-21 13:57 | P.PN ---
Subjective HISTORY OF PRESENT ILLNESS: The patient is an 82-year-old female patient with a past medical history significant for hypertension and dyslipidemia who was admitted to the hospital after she fell at home. She was ruled in for acute coronary syndrome. She underwent a heart catheterization yesterday and that revealed severe disease involving the left main coronary artery and surgical consult was placed and the patient is in process to be seen by the surgeon. July 19, 2023 The patient was seen and evaluated this morning. She is asymptomatic. She is hemodynamically stable. She is on aspirin and she is on a statin. She is not on beta-pam because of the marginally low heart rate. From a cardiovascular standpoint of view, I would continue the current medical regimen. The patient was seen by the surgical team and she deemed to be high risk for open heart surgery. The echo showed normal LV systolic function. The examination showed regular rhythm with a systolic murmur and clear breathing sounds bilaterally and no lower extremities edema noted July 20, 2023 The patient was seen and evaluated this morning. She is asymptomatic. No pain in the chest and no shortness of breath and no dizziness or lightheadedness and no feeling of heart racing or fluttering and no presyncope or syncope. The patient was seen by the surgical team and she was deemed to be high risk for open heart surgery. Currently she is asymptomatic. The echo showed normal LV systolic function. She is on aspirin and she is on statin. She is allergic to beta-pam. I discussed the case with the patient in details. Because she is not experiencing any symptoms of chest pain or chest discomfort and no shortness of breath and because of Parkinson disease and limited functional capacity I advised the patient to be treated medically at this point and to follow-up with Dr. Treviño in the office as an outpatient and she is in full understanding and agreement. I would not pursue any stenting at this point. The examination is remarkable for regular rhythm with a systolic murmur and clear breathing sounds bilaterally and no edema was noted. 07/21/2023 Patient examined this morning at the bedside. Patient's son is present. Patient currently denies any chest pain or pressure. She denies shortness of breath. She is hoping to be discharged to subacute rehab today. PHYSICAL EXAM: VITAL SIGNS: Reviewed. GENERAL: Well-developed in no acute distress. NECK: Supple. No JVD or thyromegaly LUNGS: Respirations even and unlabored. Lungs essentially clear to auscultation bilaterally. HEART: Regular rate and rhythm. S1 and S2 heard. EXTREMITIES: Normal range of motion. No clubbing or cyanosis. Peripheral pulses intact. No lower extremity edema ASSESSMENT: Non-STEMI, status postcardiac catheterization revealing left main disease Status post fall at home History of breast cancer status postmastectomy Severe osteoarthritis PLAN: Continue current cardiac medications Hold beta-pam therapy at this time secondary to bradycardia Add lisinopril 5 mg daily Add Plavix 75 mg daily Continue additional cardiac medications We will continue with conservative management at this time. Patient was found to be high risk for CABG. Discussion was held yesterday with Dr. Iglesias and patient and plan is to treat medically at this time. Patient and son are agreeable. Patient may be discharged home today from a cardiac standpoint She is to follow-up postdischarge with Dr. Pena Nurse practitioner note has been reviewed by physician. Signing provider agrees with the documented findings, assessment, and plan of care documented by [employer] as a scribe. Objective - Vital Signs Vital signs: Vital Signs Temp 98.1 F 07/21/23 08:00 Pulse 54 L 07/21/23 08:00 Resp 18 07/21/23 04:00 BP 170/72 07/21/23 08:00 Pulse Ox 97 07/21/23 08:00 FiO2 Intake & Output 07/20/23 07/21/23 07/21/23 18:59 06:59 18:59 Intake Total 1078 443 240 Output Total 925 825 900 Balance 153 -382 -660 Weight 67 kg Intake: Oral 1078 443 240 Output: Urine 925 825 900 Other: Voiding Method Indwelling Catheter Indwelling Catheter Indwelling Catheter # Voids 1 - Labs CBC & Chem 7: 07/19/23 01:11 07/18/23 08:41
--- NOTE | 2023-07-21 15:40 | P.DS ---
Providers Date of admission: 07/18/23 06:33 Attending physician: Diaz Cali Consults: 07/17/23 07:48 Consult Physician Routine Consulting Provider: Kristian Iglesias Consult Reason/Comments: high troponin Do you want consulting provider notified?: Yes 07/17/23 09:33 Consult Physician Routine Consulting Provider: Ankur Lawrence Consult Reason/Comments: sever OA Do you want consulting provider notified?: Yes 07/18/23 12:02 Consult Physician Routine Consulting Provider: Jose Florentino Consult Reason/Comments: uppre extremity lymphedema, h'/o breast cancer Do you want consulting provider notified?: Yes 07/18/23 12:44 Consult Physician Routine Consulting Provider: Tod Rodriges Consult Reason/Comments: cad Do you want consulting provider notified?: Yes Primary care physician: Last Horowitz [facility] Course: Diagnoses: Severe left main coronary artery disease, to be evaluated for bypass procedure fall at home without syncope Left upper extremity lymphedema, chronic follow-up outpatient 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 Continue with conservative management Peripheral neuropathy history of bilateral breast cancer status post mastectomy and lymph node dissection it also she has chronic left upper extremity lymphedema. History of Parkinson disease Hospital course: This is a pleasant 82 years old female with past medical history of bilateral breast cancer status post mastectomy and lymph node dissection it also she has chronic left upper extremity lymphedema. However it looks warmer compared to the right side. Patient lives alone at her apartment and she was cleaning her Disposal going from outside into the house where she has to steps, patient thinks she fell without dizziness or syncope because of her peripheral neuropathy and severe osteoarthritis. Patient is found to have coronary artery disease with mildly elevated troponin fortune teller evaluated the patient and found through her cardiac cath she has left main coronary artery disease, she was also evaluated by cardiothoracic surgeon for possible CABG however patient found to be high risk for bypass procedure therefore the plan was to treat her medically per recommendation of the fortune teller who saw her today and cleared her for discharge. This plan is explained to the patient and she verbalized understanding and acceptance. Patient will be discharged on dual antiplatelet therapy with aspirin and Plavix, risks of bleeding including but not limited to the risk of brain bleed is explained for her. Beta-pam not prescribed because of the bradycardia but lisinopril added. Patient today she is fully awake oriented with no chest pain or dyspnea. No new complaints. Still complaining from ongoing pain in her joints due to severe [id number] disease and end-stage osteoarthritis of the left shoulder, orthopedic team recommended conservative management with pain medication and may be considered for intrasynovial joint injection however the definitive treatment should be evaluated for joint replacement therapy if patient wishes and she can follow-up outpatient and she agrees with this plan as well. Currently her pain is controlled and she is going to rehab for further strengthening. Patient has remote history of breast cancer with chronic left upper extremity lymphedema. Ultrasound was negative for DVT patient evaluated by oncology team no further recommendation now and she can follow-up with her oncologist Dr. Luu as an outpatient and patient agrees with this as well Patient with no other complaint and agreeable to go to rehab today Patient was cleared for discharge by all consultants including fortune teller, cardiothoracic surgery team, hematology/oncology team and orthopedic teams. Problems and management plan were discussed with the patient and he verbalized understanding and acceptance Patient was found stable and can be discharged home in guarded prognosis however he needs follow-up as an outpatient. Patient was instructed to follow up with PCP Dr. Horowitz within one week and patient agrees Patient was instructed to follow-up with fortune teller Dr. Trveiño in 1 week after d ischarge she agrees Patient was instructed to follow-up with orthopedic in 1 to 2 weeks and she agree Patient also instructed to follow-up with oncologist Dr. Luu on August and she agrees with appointment made for her on 09/01 also patient would benefit from Neurologist evaluation as an outpatient for her Parkinson disease she was referred to Dr. Truong as an outpatient to see him in 2 to 4 weeks Physical exam Gen: patient is a AAOx3, no distress CVS: S1-S2, RRR, no murmur Lungs: B/L CTA, no wheezing Abdomen: soft, no distention, no tenderness, positive bowel sounds Extremity: no leg edema or induration -Musculoskeletal: chronic pain of the left shoulder and left knee but all other joints to some degree. Patient can move her left shoulder with some limitation due to pain Time spent more than 35 minutes Patient Condition at Discharge: Fair Plan - Discharge Summary Discharge Rx Participant: No New Discharge Prescriptions: New Aspirin 81 mg PO DAILY tab Capsaicin Cream [Trixaicin Cream] 1 applic TOPICAL QID each Atorvastatin [Lipitor] 40 mg PO DAILY tab Nitroglycerin Sl Tabs [Nitrostat] 0.4 mg SUBLINGUAL Q5M PRN tab PRN Reason: Chest Pain Clopidogrel [Plavix] 75 mg PO DAILY tab Acetaminophen Tab [Tylenol] 650 mg PO Q6HR PRN tab PRN Reason: Mild Pain Or Fever > 100.5 lisinopriL [Zestril] 5 mg PO DAILY tab Discontinued Pregabalin [Lyrica] 25 mg PO DIRECTED Chlorthalidone [Hygroton] 25 mg PO DIRECTED Discharge Medication List Acetaminophen Tab [Tylenol] 650 mg PO Q6HR PRN tab 07/21/23 [Rx] Aspirin 81 mg PO DAILY tab 07/21/23 [Rx] Atorvastatin [Lipitor] 40 mg PO DAILY tab 07/21/23 [Rx] Capsaicin Cream [Trixaicin Cream] 1 applic TOPICAL QID each 07/21/23 [Rx] Clopidogrel [Plavix] 75 mg PO DAILY tab 07/21/23 [Rx] Nitroglycerin Sl Tabs [Nitrostat] 0.4 mg SUBLINGUAL Q5M PRN tab 07/21/23 [Rx] lisinopriL [Zestril] 5 mg PO DAILY tab 07/21/23 [Rx] Follow up Appointment(s)/Referral(s): Last Horowitz DO [Primary Care Provider] - 1-2 days Geoffrey Pena MD [STAFF PHYSICIAN] - 1 Week (heart doctor) Ankur Lawrence MD [STAFF PHYSICIAN] - 1 Week Lew Luu MD [STAFF PHYSICIAN] - 09/02/23 9:15 am (breast cancer ) Activity/Diet/Wound Care/Special Instructions: heart healthy diet activity is as tolerated Discharge Disposition: TRANSFER TO SNF/ECF
== END 2023-07-21 17:39 | DRG 280 ==
LOC: EC 17:23 → 3SCARD 21:05 → OBSVTOIN 07-18 06:33
PROVIDERS: ADMIT Hospitalist; ATTEND Hospitalist
PROC: B2111ZZ Fluoroscopy of Multiple Coronary Arteries using Low Osmolar Contrast (ICD-10-PCS; 2023-07-18)
PROC: 4A023N7 Measurement of Cardiac Sampling and Pressure, Left Heart, Percutaneous Approach (ICD-10-PCS; principal; 2023-07-18 17:55)
DX: I21.4 Non-ST elevation (NSTEMI) myocardial infarction (principal); I50.31 Acute diastolic (congestive) heart failure; I11.0 Hypertensive heart disease with heart failure; J84.10 Pulmonary fibrosis, unspecified; G20.A1 Parkinson's disease without dyskinesia, without mention of fluctuations; J44.9 Chronic obstructive pulmonary disease, unspecified; I08.1 Rheumatic disorders of both mitral and tricuspid valves; I25.10 Atherosclerotic heart disease of native coronary artery without angina pectoris; I89.0 Lymphedema, not elsewhere classified; M19.011 Primary osteoarthritis, right shoulder; G62.9 Polyneuropathy, unspecified; M17.0 Bilateral primary osteoarthritis of knee; R68.0 Hypothermia, not associated with low environmental temperature; E78.5 Hyperlipidemia, unspecified; M47.812 Spondylosis without myelopathy or radiculopathy, cervical region; M54.50 Low back pain, unspecified; M12.812 Other specific arthropathies, not elsewhere classified, left shoulder; M25.762 Osteophyte, left knee; R00.1 Bradycardia, unspecified; G89.29 Other chronic pain; R32 Unspecified urinary incontinence; W10.9XXA Fall (on) (from) unspecified stairs and steps, initial encounter; Z96.653 Presence of artificial knee joint, bilateral; Y92.009 Unspecified place in unspecified non-institutional (private) residence as the place of occurrence of the external cause; Z79.02 Long term (current) use of antithrombotics/antiplatelets; Z85.3 Personal history of malignant neoplasm of breast; Z90.13 Acquired absence of bilateral breasts and nipples; Z79.82 Long term (current) use of aspirin; Z79.899 Other long term (current) drug therapy; Z88.8 Allergy status to other drugs, medicaments and biological substances; Z91.041 Radiographic dye allergy status; Z88.1 Allergy status to other antibiotic agents; Z91.030 Bee allergy status; Z92.3 Personal history of irradiation; Z92.21 Personal history of antineoplastic chemotherapy; Z17.0 Estrogen receptor positive status [ER+]
CPT/HCPCS: 36415; 70450; 70551; 71045; 72125; 73502; 80048; 80053; 81003; 82550; 83605; 83735; 84100; 84484; 85025; 85610; 85730; 93005; 93306; 93458; 99285

== ENCOUNTER 2023-08-03 00:44 | Emergency (ER) | payer MEDICARE, OTHER ==
[2023-08-03 01:35] VITALS: TEMP 98.6
[2023-08-03] MEDS: FAMOTIDINE 20 MG/2 ML VIAL IV STA (01:35)
[2023-08-03] MEDS: diphenhydrAMINE 50 MG/ML 1 ML VIAL IVP STA (01:38)
--- NOTE | 2023-08-03 02:45 | ED ---
General Adult HPI - General Chief complaint: Allergic Reaction Stated complaint: Allergic Reaction Time Seen by Provider: 08/03/23 00:46 Source: EMS Mode of arrival: EMS - History of Present Illness Initial comments: This patient is an 83-year-old woman who presents to have evaluation for burning, irritated sensation to her throat. The patient believes this may be related to starting stool softener, as she did not have symptoms prior to taking that a couple of days ago. She has not had upper respiratory symptoms. No fever or chills. No cough or congestion. -: hour(s) Quality: burning Consistency: constant Improves with: none Worsens with: none Treatments Prior to Arrival: none - Related Data Previous Rx's Medication Instructions Recorded Acetaminophen Tab [Tylenol] 650 mg PO Q6HR PRN tab 07/21/23 Aspirin 81 mg PO DAILY tab 07/21/23 Atorvastatin [Lipitor] 40 mg PO DAILY tab 07/21/23 Capsaicin Cream [Trixaicin Cream] 1 applic TOPICAL QID each 07/21/23 Clopidogrel [Plavix] 75 mg PO DAILY tab 07/21/23 Nitroglycerin Sl Tabs [Nitrostat] 0.4 mg SUBLINGUAL Q5M PRN tab 07/21/23 lisinopriL [Zestril] 5 mg PO DAILY tab 07/21/23 Allergies Allergy/AdvReac Type Severity Reaction Status Date / Time amlodipine Allergy Nausea Verified 08/03/23 00:52 carbidopa [From Sinemet] Allergy Unknown Verified 08/03/23 00:52 chlorthalidone Allergy Swelling Verified 08/03/23 00:52 of arm clonidine Allergy sweliing Verified 08/03/23 00:52 Iodinated Contrast Media Allergy Anaphylaxis Verified 08/03/23 00:52 [Iodinated Contrast Media - IV Dye] levodopa [From Sinemet] Allergy Unknown Verified 08/03/23 00:52 metoprolol Allergy Swelling Verified 08/03/23 00:52 left arm, [place], sore throat pilocarpine Allergy Rash/Hives Verified 08/03/23 00:52 Tetracyclines Allergy Swelling Verified 08/03/23 00:52 venom-honey bee Allergy Rash/Hives Verified 08/03/23 00:52 [bee venom (honey bee)] furosemide [From Lasix] AdvReac Nausea & Verified 08/03/23 00:52 Vomiting primidone [From Mysoline] AdvReac Unknown Verified 08/03/23 00:52 ropinirole [From Requip] AdvReac Nausea & Verified 08/03/23 00:52 Vomiting Review of Systems ROS Statement: Those systems with pertinent positive or pertinent negative responses have been documented in the HPI. ROS Other: All systems not noted in ROS Statement are negative. Constitutional: Denies: fever, chills, weakness ENT: Reports: ear pain Respiratory: Denies: cough, dyspnea, stridor Cardiovascular: Denies: chest pain, palpitations Gastrointestinal: Denies: abdominal pain, nausea, vomiting Genitourinary: Denies: dysuria Musculoskeletal: Denies: back pain Skin: Denies: rash Neurological: Denies: headache, weakness, numbness Past Medical History Past Medical History: COPD, Hypertension Additional Past Medical History / Comment(s): breast cancer r breast 1993, left breast cancer 1999, chronic pulmonary edema, right breast removed in 1993, left breast removed 2011, Parkinsons History of Any Multi-Drug Resistant Organisms: None Reported Past Surgical History: Cholecystectomy, Hysterectomy, Joint Replacement Additional Past Surgical History / Comment(s): bilateral mastectomy, bilater knee replacement Past Anesthesia/Blood Transfusion Reactions: No Reported Reaction Past Psychological History: No Psychological Hx Reported Smoking Status: Never smoker Past Alcohol Use History: None Reported Past Drug Use History: None Reported - Past Family History Mother Family Medical History: Cancer (Breast cancer and a tumor behind her eye) Father Family Medical History: Cancer (Stomach cancer) Sister(s) Family Medical History: Cancer (Breast cancer) General Exam General appearance: alert, in no apparent distress Head exam: Present: atraumatic, normocephalic Eye exam: Present: normal appearance. Absent: scleral icterus, conjunctival injection ENT exam: Present: mucous membranes moist Neck exam: Present: normal inspection, full ROM. Absent: lymphadenopathy Respiratory exam: Present: normal lung sounds bilaterally, rales Cardiovascular Exam: Present: regular rate, normal rhythm, normal heart sounds. Absent: systolic murmur, diastolic murmur, rubs, gallop GI/Abdominal exam: Present: soft. Absent: distended, tenderness, guarding, rebound Back exam: Present: normal inspection. Absent: CVA tenderness (R), CVA tenderness (L) Neurological exam: Present: alert Skin exam: Present: warm, dry, intact Course Vital Signs 08/03/23 08/03/23 08/03/23 00:47 01:39 02:58 Temperature 98.6 F Pulse Rate 91 88 80 Respiratory 17 17 19 Rate Blood Pressure 137/57 137/57 132/55 O2 Sat by Pulse 98 100 97 Oximetry Medical Decision Making - Medical Decision Making Was pt. sent in by a medical professional or institution (, JASMIN, MATERIALS MANAGEMENT MANAGER, urgent care, hospital, or intermediate...) When possible be specific @ -Yes patient is sent from intermediate for evaluation Did you speak to anyone other than the patient for history (EMS, parent, family, police, friend...)? What history was obtained from this source @ -[No] Did you review nursing and triage notes (agree or disagree)? Why? @ -[I reviewed and agree with nursing and triage notes] Were old charts reviewed (outside hosp., previous admission, EMS record, old EK G, old radiological studies, urgent care reports/EKG's, intermediate records)? Report findings @ -[No old charts were reviewed] Differential Diagnosis (chest pain, altered mental status, abdominal pain women, abdominal pain men, vaginal bleeding, weakness, fever, dyspnea, syncope, headache, dizziness, GI bleed, back pain, seizure, CVA, palpatations, mental health, musculoskeletal)? @ -[Differential diagnosis includes viral pharyngitis, allergic reaction, among other conditions EKG interpreted by me (3pts min.). @ -[As above] X-rays interpreted by me (1pt min.). @ -[None done] CT interpreted by me (1pt min.). @ -[None done] U/S interpreted by me (1pt. min.). @ -[None done] What testing was considered but not performed or refused? (CT, X-rays, U/S, labs)? Why? @ -[None] What meds were considered but not given or refused? Why? @ -[None] Did you discuss the management of the patient with other professionals (professionals i.e. , JASMIN, MATERIALS MANAGEMENT MANAGER, lab, RT, psych nurse, group social worker, travelift operator, teacher, seal delivery vehicle officer, residential case manager)? Give summary @ -[No] Was smoking cessation discussed for >3mins.? @ -[No] Was critical care preformed (if so, how long)? @ -[No] Were there social determinants of health that impacted care today? How? (Homelessness, low income, unemployed, alcoholism, drug addiction, transportation, low edu. Level, literacy, decrease access to med. care, penitentiary, rehab)? @ -[No] Was there de-escalation of care discussed even if they declined (Discuss DNR or withdrawal of care, Hospice)? DNR status @ -[No] What co-morbidities impacted this encounter? (DM, HTN, Smoking, COPD, CAD, Cancer, CVA, ARF, Chemo, Hep., AIDS, mental health diagnosis, sleep apnea, morbid obesity)? @ -[None] Was patient admitted / discharged? Hospital course, mention meds given and route, prescriptions, significant lab abnormalities, going to OR and other pertinent info. @ -[Patient is an 83-year-old woman sent from intermediate to the evaluation for pharyngitis type symptoms. At this point the viral panel is negative, there is no exam evidence of strep or other bacterial pathology. The patient feeling better following medication and having some fluids. She will go back to the intermediate, return parameters discussed] Undiagnosed new problem with uncertain prognosis? @ -[No] Drug Therapy requiring intensive monitoring for toxicity (Heparin, Nitro, Insulin, Cardizem)? @ -[No] Were any procedures done? @ -[No] Diagnosis/symptom? @ -[Acute pharyngitis Acute, or Chronic, or Acute on Chronic? @ -[Acute Uncomplicated (without systemic symptoms) or Complicated (systemic symptoms)? @ -[d uncomplicated Side effects of treatment? @ -[No] Exacerbation, Progression, or Severe Exacerbation? @ -[No] Poses a threat to life or bodily function? How? (Chest pain, [place], [place], pneumonia, PE, COPD, DKA, ARF, appy, cholecystitis, CVA, Diverticulitis, Homicidal, Suicidal, threat to staff... and all critical care pts) @ -[No] - Lab Data Lab Results 08/03/23 08/03/23 Range/Units 01:27 01:27 Influenza Type A (PCR) Not Detected (Not Detectd) Influenza Type B (PCR) Not Detected (Not Detectd) RSV (PCR) Not Detected (Not Detectd) SARS-CoV-2 (PCR) Not Detected (Not Detectd) Group A Strep (PCR) NOT DETECTED (Not Detectd) Disposition Clinical Impression: Acute pharyngitis Disposition: HOME SELF-CARE Condition: Good Instructions (If sedation given, give patient instructions): Pharyngitis (ED) Is patient prescribed a controlled substance at d/c from ED?: No Referrals: Last Horowitz DO [Primary Care Provider] - 1-2 days
[2023-08-03 03:28] VITALS: BP 132/55; PULSE 80; RESP 19
[2023-08-03] MEDS: HYDROcodone/APAP 5-325MG 1 EACH TAB PO STA (03:28)
== END 2023-08-03 03:17 | disposition home or self-care (01) ==
LOC: EC 00:44
DX: J02.9 Acute pharyngitis, unspecified (principal); Z91.030 Bee allergy status; Z88.8 Allergy status to other drugs, medicaments and biological substances; Z91.041 Radiographic dye allergy status
CPT/HCPCS: 87651; 87636; 99284; 96374; 96375; J1200; J3490

== ENCOUNTER 2023-08-05 05:38 | Emergency (ER) | payer MEDICARE, OTHER ==
--- NOTE | 2023-08-05 06:21 | ED ---
Chest Pain HPI - General Chief Complaint: Chest Pain Stated Complaint: Chest pain Time Seen by Provider: 08/05/23 05:54 Source: patient, EMS, RN notes reviewed, old records reviewed Mode of arrival: EMS Limitations: no limitations - History of Present Illness Initial Comments: 83-year-old female presents emergency department from jail with chief complaint of shortness of breath, chest discomfort. Patient states that started few hours ago. Patient states that the pain has resolved. She states she does not have current shortness of breath. Denies any fever chills or night sweats. Patient states she has mild congestion but it has been ongoing. Patient was recently hospitalized in a month did have a heart cath in which he only had mild disease at 60%. Patient denies any nausea vomiting diaphoretic episodes. Patient did receive aspirin, nitro from staff. - Related Data Previous Rx's Medication Instructions Recorded Acetaminophen Tab [Tylenol] 650 mg PO Q6HR PRN tab 07/21/23 Aspirin 81 mg PO DAILY tab 07/21/23 Atorvastatin [Lipitor] 40 mg PO DAILY tab 07/21/23 Capsaicin Cream [Trixaicin Cream] 1 applic TOPICAL QID each 07/21/23 Clopidogrel [Plavix] 75 mg PO DAILY tab 07/21/23 Nitroglycerin Sl Tabs [Nitrostat] 0.4 mg SUBLINGUAL Q5M PRN tab 07/21/23 lisinopriL [Zestril] 5 mg PO DAILY tab 07/21/23 Allergies Allergy/AdvReac Type Severity Reaction Status Date / Time amlodipine Allergy Nausea Verified 08/03/23 00:52 carbidopa [From Sinemet] Allergy Unknown Verified 08/03/23 00:52 chlorthalidone Allergy Swelling Verified 08/03/23 00:52 of arm clonidine Allergy sweliing Verified 08/03/23 00:52 Iodinated Contrast Media Allergy Anaphylaxis Verified 08/03/23 00:52 [Iodinated Contrast Media - IV Dye] levodopa [From Sinemet] Allergy Unknown Verified 08/03/23 00:52 metoprolol Allergy Swelling Verified 08/03/23 00:52 left arm, nauea, sore throat pilocarpine Allergy Rash/Hives Verified 08/03/23 00:52 Tetracyclines Allergy Swelling Verified 08/03/23 00:52 venom-honey bee Allergy Rash/Hives Verified 08/03/23 00:52 [bee venom (honey bee)] furosemide [From Lasix] AdvReac Nausea & Verified 08/03/23 00:52 Vomiting primidone [From Mysoline] AdvReac Unknown Verified 08/03/23 00:52 ropinirole [From Requip] AdvReac Nausea & Verified 08/03/23 00:52 Vomiting Review of Systems ROS Statement: Those systems with pertinent positive or pertinent negative responses have been documented in the HPI. ROS Other: All systems not noted in ROS Statement are negative. EKG Findings - EKG Comments: EKG Findings:: EKG performed at 5: 54 sinus rhythm with first-degree block rate of 79 TN 212 QRS 89 QT/QTc 321/416 - EKG Results: EKG: interpreted by [facility] Past Medical History Past Medical History: COPD, Hypertension Additional Past Medical History / Comment(s): breast cancer r breast 1993, left breast cancer 1999, chronic pulmonary edema, right breast removed in 1993, left breast removed 2011, Parkinsons History of Any Multi-Drug Resistant Organisms: None Reported Past Surgical History: Cholecystectomy, Hysterectomy, Joint Replacement Additional Past Surgical History / Comment(s): bilateral mastectomy, bilater knee replacement Past Anesthesia/Blood Transfusion Reactions: No Reported Reaction Past Psychological History: No Psychological Hx Reported Smoking Status: Never smoker Past Alcohol Use History: None Reported Past Drug Use History: None Reported - Past Family History Mother Family Medical History: Cancer (Breast cancer and a tumor behind her eye) Father Family Medical History: Cancer (Stomach cancer) Sister(s) Family Medical History: Cancer (Breast cancer) General Exam General appearance: alert, in no apparent distress Head exam: Present: atraumatic, normocephalic, normal inspection Eye exam: Present: normal appearance, PERRL, EOMI. Absent: scleral icterus, conjunctival injection, periorbital swelling ENT exam: Present: normal exam, normal oropharynx, mucous membranes moist Neck exam: Present: normal inspection, full ROM. Absent: tenderness, meningismus, lymphadenopathy Respiratory exam: Present: normal lung sounds bilaterally. Absent: respiratory distress, wheezes, rales, rhonchi, stridor Cardiovascular Exam: Present: regular rate, normal rhythm, normal heart sounds. Absent: systolic murmur, diastolic murmur, rubs, gallop, clicks GI/Abdominal exam: Present: soft, normal bowel sounds. Absent: distended, tenderness, guarding, rebound, rigid Neurological exam: Present: alert, oriented X3 Skin exam: Present: warm, dry, intact, normal color. Absent: rash Course Vital Signs 08/05/23 08/05/23 08/05/23 05:41 06:50 07:00 Temperature 99.3 F Pulse Rate 77 74 78 Respiratory 18 18 16 Rate Blood Pressure 143/70 150/64 150/68 O2 Sat by Pulse 96 97 96 Oximetry 08/05/23 08/05/23 08:00 09:00 Temperature 98.4 F Pulse Rate 84 84 Respiratory 16 18 Rate Blood Pressure 142/68 148/62 O2 Sat by Pulse 98 96 Oximetry Chest Pain MDM - MDM Was pt. sent in by a medical professional or institution (, PA, [employer], urgent care, hospital, or jail...) When possible be specific @ -No Did you speak to anyone other than the patient for history (EMS, parent, family, police, friend...)? What history was obtained from this source @ -No Did you review nursing and triage notes (agree or disagree)? Why? @ -I reviewed and agree with nursing and triage notes Were old charts reviewed (outside hosp., previous admission, EMS record, old EKG, old radiological studies, urgent care reports/EKG's, jail records)? Report findings @ -Recent admission, laboratory studies, cardiac evaluation and heart cath Differential Diagnosis (chest pain, altered mental status, abdominal pain women, abdominal pain men, vaginal bleeding, weakness, fever, dyspnea, syncope, headache, dizziness, GI bleed, back pain, seizure, CVA, palpatations, mental health, musculoskeletal)? @ -Differential Chest Pain: Stable Angina, Unstable Angina, STEMI, NSTEMI Aortic Dissection, Pneumothorax, Musculoskeletal, Esophageal Spasm GERD, Cholecystitis, Pancreatitis, Zoster, th is is not meant to be an all-inclusive list. EKG interpreted by me (3pts min.). @ -As above X-rays interpreted by me (1pt min.). @ -Chest shows no acute cardiopulmonary process CT interpreted by me (1pt min.). @ -None done U/S interpreted by me (1pt. min.). @ -None done What testing was considered but not performed or refused? (CT, X-rays, U/S, labs)? Why? @ -None What meds were considered but not given or refused? Why? @ -None Did you discuss the management of the patient with other professionals (professionals i.e. , PA, [employer], lab, RT, psych nurse, social staff worker, traffic police officer, teacher, radiological defense officer, social work case manager)? Give summary @ -No Was smoking cessation discussed for >3mins.? @ -No Was critical care preformed (if so, how long)? @ -No Were there social determinants of health that impacted care today? How? (Homelessness, low income, unemployed, alcoholism, drug addiction, transportation, low edu. Level, literacy, decrease access to med. care, assisted, rehab)? @ -No Was there de-escalation of care discussed even if they declined (Discuss DNR or withdrawal of care, Hospice)? DNR status @ -No What co-morbidities impacted this encounter? (DM, HTN, Smoking, COPD, CAD, Cancer, CVA, ARF, Chemo, Hep., AIDS, mental health diagnosis, sleep apnea, morbid obesity)? @ -Hypertension Was patient admitted / discharged? Hospital course, mention meds given and route, prescriptions, significant lab abnormalities, going to OR and other pertinent info. @ -This charge patient presented for atypical chest wall pain patient had full workup including labs, EKG chest x-ray with no acute findings patient had a second troponin which was negative patient had a heart cath 2 weeks ago which only showed 60% occlusion, no other acute process. Patient pain has not returned and will be discharged in stable condition. Undiagnosed new problem with uncertain prognosis? @ -No Drug Therapy requiring intensive monitoring for toxicity (Heparin, Nitro, Insulin, Cardizem)? @ -No Were any procedures done? @ -No Diagnosis/symptom? @ -Atypical chest pain Acute, or Chronic, or Acute on Chronic? @ -Acute Uncomplicated (without systemic symptoms) or Complicated (systemic symptoms)? @ -Uncomplicated Side effects of treatment? @ -No Exacerbation, Progression, or Severe Exacerbation? @ -No Poses a threat to life or bodily function? How? (Chest pain, [place], OR, pneumonia, PE, COPD, DKA, ARF, appy, cholecystitis, CVA, Diverticulitis, Homicidal, Suicidal, threat to staff... and all critical care pts) @ -No Disposition Clinical Impression: Atypical chest pain Disposition: HOME SELF-CARE Condition: Stable Instructions (If sedation given, give patient instructions): Chest Pain (ED) Additional Instructions: Please return to the Emergency Department if symptoms worsen or any other concerns. Is patient prescribed a controlled substance at d/c from ED?: No Referrals: Last Horowitz DO [Primary Care Provider] - 1-2 days Time of Disposition: 09:32
[2023-08-05 06:50] LABS: Partial Thromboplastin Time 22.2 sec (22.0-30.0); Prothrombin Time 10.7 sec (10.0-12.5)
[2023-08-05 06:58] LABS: ALT 13 U/L (4-34); African American GFR (CKD) >90 (>60 ml/min/1.73 sqM); Albumin 2.7 g/dL (3.5-5.0); Anion Gap 4 mmol/L; Blood Urea Nitrogen 14 mg/dL (7-17); Calcium 8.2 mg/dL (8.4-10.2); Carbon Dioxide 24 mmol/L (22-30); Chloride 109 mmol/L (98-107); Glucose 87 mg/dL (74-99); Magnesium 1.9 mg/dL (1.6-2.3); Non-African American GFR(CKD) >90 (>60 ml/min/1.73 sqM); Sodium 137 mmol/L (137-145); Total Bilirubin 0.9 mg/dL (0.2-1.3)
[2023-08-05 07:10] LABS: Basophils % (A) 1 %; Eosinophils # (A) 0.1 k/uL (0-0.7); Eosinophils % (A) 2 %; HCT 54.9 % (34.0-46.0); Lymphocytes # (A) 0.8 k/uL (1.0-4.8); Lymphocytes % (A) 20 %; MCH 28.1 pg (25.0-35.0); Mean Platelet Volume 7.7; Monocytes # (A) 0.3 k/uL (0-1.0); Monocytes % (A) 6 %; Neutrophils # (A) 2.7 k/uL (1.3-7.7); Neutrophils % (A) 70 %; Platelet Count 199 k/uL (150-450); RBC 6.24 m/uL (3.80-5.40); RDW 13.7 % (11.5-15.5); WBC 3.9 k/uL (3.8-10.6)
[2023-08-05 07:14] LABS: HGB 17.5 gm/dL (11.4-16.0)
[2023-08-05 07:40] LABS: AST 29 U/L (14-36); Alkaline Phosphatase 69 U/L (38-126); Potassium 4.2 mmol/L (3.5-5.1); Total Protein 5.7 g/dL (6.3-8.2)
--- NOTE | 2023-08-05 08:13 | XR ---
EXAMINATION TYPE: XR chest 2V DATE OF EXAM: 08/05/2023 6:16 AM CLINICAL INDICATION:Female, 83 years old with history of Chest Pain; [facility] COMPARISON: Chest radiographs from 07/16/2023 TECHNIQUE: XR chest 2V Frontal and lateral views of the chest. FINDINGS: Lungs/Pleura: There is no evidence of pleural effusion, focal consolidation, or pneumothorax. Pulmonary vascularity: Unremarkable. Heart/mediastinum: Cardiomediastinal silhouette is unremarkable. Musculoskeletal: Degenerative changes of the shoulder joints. Other findings: None IMPRESSION: 1. No acute cardiopulmonary disease process. 2. COPD changes.
[2023-08-05] MEDS: KETOROLAC 15 MG/ML 1 ML VIAL IVP STA (08:17)
[2023-08-05] MEDS: ACET/COD 300 MG/30 MG STARTER PACK 6 TAB BTL PO STA (10:00)
[2023-08-05 10:47] VITALS: BP 150/70; PULSE 81; RESP 20; TEMP 98.3
== END 2023-08-05 10:40 | disposition home or self-care (01) ==
LOC: EC 05:38
DX: R07.89 Other chest pain (principal); I10 Essential (primary) hypertension; Z88.8 Allergy status to other drugs, medicaments and biological substances; Z91.048 Other nonmedicinal substance allergy status; Z88.2 Allergy status to sulfonamides; Z91.041 Radiographic dye allergy status; Z91.09 Other allergy status, other than to drugs and biological substances; Z91.030 Bee allergy status; Z88.5 Allergy status to narcotic agent; Z88.6 Allergy status to analgesic agent
CPT/HCPCS: 36415; 93005; 80053; 83735; 84484; 85025; 85610; 85730; 71046; 99285; 96374; J1885

== ENCOUNTER → 2023-10-23 | Outpatient (CLI) | payer MEDICARE, OTHER ==
[2023-10-23 07:47] LABS: African American GFR (CKD) >90 (>60 ml/min/1.73 sqM); Blood Urea Nitrogen 21 mg/dL (7-17); Non-African American GFR(CKD) 86 (>60 ml/min/1.73 sqM)
--- NOTE | 2023-10-23 11:24 | CT ---
EXAMINATION TYPE: CT chest w con DATE OF EXAM: 10/23/2023 COMPARISON: 10/18/2014 HISTORY: h/o breast CA, f/u CT DLP: 265.8 mGycm Automated exposure control for dose reduction was used. TECHNIQUE: CT scan of the chest is performed with IV Contrast, patient injected with 100 mL of Isovue 300. MIP Images are created on CT scanner and reviewed. 3D reconstructed images are created on an independent workstation and reviewed. FINDINGS: There a few stable scattered small calcified pleural based plaques. There are 2 stable sub-5 mm pulmonary nodules in the right upper lobe and right lower lobe. There is stable volume loss in the left lung with retraction of the david superiorly, and mild elevati on left hemidiaphragm. There is been interval development of an ill-defined subpleural parenchymal consolidation/mass in the left lung apex with dystrophic calcification. There is interval development of atelectasis in the li ngula. The great vessels of the chest are normal and is no mediastinal, hilar or axillary adenopathy. Limited scanning through the upper abdomen reveals no gross abnormality. No focal osseous lesions are seen. IMPRESSION: 1. Interval development of subpleural and parenchymal ill-defined density consolidated/masslike densi ty with dystrophic calcification in left lung apex. The findings are suspicious for neoplasm and biop sy or PET scanning be useful for further evaluation. 2. Interval development of atelectasis in the left lung lingula. 3. Stable small right lung nodules and scattered calcified pleural-based plaques as described above. 4. Stable mild volume loss in the left lung as described above.
--- NOTE | 2023-10-23 13:19 | NM ---
EXAMINATION TYPE: NM bone scan whole body DATE OF EXAM: 10/23/2023 12:05 PM CLINICAL INDICATION:Female, 83 years old with history of C50.812 BREAST CANCER; COMPARISON: Nuclear medicine bone scan 01/12/2020 TECHNIQUE: Intravenous administration 22.3 mCi Tc 99m MDP followed by multiple scintigraphic images o f the appendicular and axial skeleton. Additionally, small field of view planar anterior and posterio r images of the lumbosacral spine and pelvis. Lastly, coronal, transverse, and sagittal SPECT images of the lumbosacral spine and pelvis were generated for review.Lastly, small [id number] anterior, p osterior and lateral views of the chest were submitted for review. Images acquired 3.5 hours post injection. FINDINGS: No abnormal uptake is identified within the appendicular or axial skeleton to suggest metastatic dise ase. There is increased uptake within the bilateral shoulder, and mild sternoclavicular, moderate lateral compartment of left knee consistent with degenerative changes. Hemiarthroplasty left knee. No other p hotopenic areas or areas of increased activity are identified. Physiologic radiotracer activity is demonstrated in the kidneys and bladder. IMPRESSION: 1. Nothing to suggest metastatic disease.
== END | disposition home or self-care (01) ==
LOC: RADNMMAIN 07:01
PROVIDERS: ATTEND Internal Medicine Hematology & Oncology
DX: C50.812 Malignant neoplasm of overlapping sites of left female breast (principal); I89.0 Lymphedema, not elsewhere classified; M15.9 Polyosteoarthritis, unspecified; R91.8 Other nonspecific abnormal finding of lung field; J98.11 Atelectasis
CPT/HCPCS: 82565; 84520; 71260; 36415; 78306; A9503; Q9967

== ENCOUNTER → 2023-11-13 | Outpatient (CLI) | payer MEDICARE, OTHER ==
--- NOTE | 2023-11-15 13:03 | PE ---
EXAMINATION TYPE: PET CT fusion skull to thigh DATE OF EXAM: 11/13/2023 CLINICAL INDICATION:Female, 83 years old with history of C50.512 breast ca; TECHNIQUE: Following the intravenous administration of 9.27 mCi of F-18 FDG, whole body images are performed from the skull base to the midthigh. Images are reviewed on the computer in the coronal, a xial, and sagittal planes. Reconstructed rotating images are created on independent workstation and reviewed on the computer. A non-contrast CT is performed in conjunction with the PET scan. Glucose level 104 mg/dL CT DLP: 445 mGycm, Automated exposure control for dose reduction was used. COMPARISON: CT 10/23/2023, PET/CT 05/23/2012, MRI: None FINDINGS: Mediastinal SUV mean is 2.0. Hepatic parenchyma SUV mean is 2.5. SKULL BASE AND NECK: No suspicious radiotracer activity. CHEST, MEDIASTINUM, AND HILAR REGION: * Calcifications along the left lung apex are without increased metabolic activity and favored repre sent scarring. Max SUV 2.6. * Uptake along the sympathetic chain bilaterally as well as the lower neck adipose tissue in the josselyn ateral supraclavicular and cervical regions. ABDOMEN AND PELVIS: No suspicious radiotracer activity. MUSCULOSKELETAL STRUCTURES: * No suspicious radiotracer activity. * Severe degeneration changes of the shoulders with uptake bilaterally. OTHER CT: The breasts are provided surgically absent. The gallbladder surgically absent. Scattered co lonic diverticula. IMPRESSION: No suspicious radiotracer activity. Left lung apex calcifications with thickening are without increas ed metabolic activity. There is uptake along the sympathetic chain and bilateral lower neck thought to be within adipose tis lupe. No enlarged lymph nodes are identified in these regions. Findings suspicious for brown fat.
== END | disposition home or self-care (01) ==
LOC: RADPETMAIN 11:23
PROVIDERS: ATTEND Internal Medicine Hematology & Oncology
DX: C50.512 Malignant neoplasm of lower-outer quadrant of left female breast (principal); C50.812 Malignant neoplasm of overlapping sites of left female breast
CPT/HCPCS: 78815; A9552

== ENCOUNTER → 2024-03-04 | Outpatient (CLI) | payer MEDICARE, OTHER ==
--- NOTE | 2024-03-05 00:18 | NM ---
EXAMINATION TYPE: NM DatScan Brain SPECT DATE OF EXAM: 03/04/2024 COMPARISON: Prior study October 29, 2022 CLINICAL INDICATION: Female, 83 years old with history of G20.A1; TECHNIQUE: 10 drops of Lugol's solution was administered 1 hour prior to injection as a thyroid bloc kanu agent. After the administration of 4.3 mCi I-123 Ioflupane DaTscan. Images obtained [address] injection. SPECT images of the brain were acquired with axial and coronal reconstructions. FINDINGS: The DaTSCAN demonstrates normal uptake of tracer throughout the striata. Consequently there is no evidence of loss of the pre-synaptic dopaminergic terminals on this investig ation. IMPRESSION: Current study is normal. [facility], , 03/05/2024 12:15 AM
== END ==
LOC: RADNMMAIN 11:08
PROVIDERS: ATTEND Radiology Diagnostic Radiology
DX: G20.A1 Parkinson's disease without dyskinesia, without mention of fluctuations (principal)
CPT/HCPCS: 78803

== ENCOUNTER 2024-11-12 14:19 | Day surgery (SDC) | payer MEDICARE, OTHER ==
[2024-11-12] MEDS: IV FLUID CONTINUATION 1,000 ML IV ONE (15:25)
[2024-11-12 15:38] VITALS: RESP 16; TEMP 97.4
[2024-11-12] MEDS: LACTATED RINGERS 1,000 ML IV SCH (15:41)
[2024-11-12] MEDS ORDERED: PROPOFOL 10 MG/ML 20 ML VIAL IV ONE (16:26)
--- NOTE | 2024-11-12 16:44 | P.PCN ---
Date of Procedure: 11/12/24 Procedure(s) Performed: BRIEF HISTORY: Patient is a 84-year-old, pleasant, white female scheduled for an upper endoscopy as a part evaluation of intermittent dysphagia to solids for the last several months duration. She does have longstanding history of GERD and is currently on Pepcid 20 mg twice daily. PROCEDURE PERFORMED: Esophagogastroduodenoscopy with dilation.. PREOPERATIVE DIAGNOSIS: Intermittent dysphagia to solids. IV sedation per anesthesia. PROCEDURE: After informed consent was obtained, the patient was brought into the endoscopy unit. IV sedation was administered by Anesthesia under continuous monitoring. Initially the Olympus GIF-140 video endoscope was inserted into the mouth. Esophagus intubated without any difficulty. It was gradually advanced into the stomach and duodenum and carefully examined. The bulb and the second part of the duodenum appeared normal. The scope at this time was withdrawn to the stomach, adequately insufflated with air, and upon careful examination, mucosa of the antrum, body and mild gastritis. Mucosa of the, cardia and the fundus appeared normal. The scope was then withdrawn into the esophagus. Small hiatal hernia noted. The GE junction was located at 39 cm from the incisors. There was a distal esophageal stricture identified and this was dilated using 12 to 50 mm TTS balloon in a sequential fashion for 30 seconds. There was mucosal tear with some oozing identified. Further dilation was not performed. There was mild erythema of the esophagus proximal to the stricture consistent with mild reflux esophagitis. There were no erosions or ulcerations seen and the patient tolerated the procedure well. IMPRESSION: 1. Distal esophageal stricture status post balloon dilation using 12-15 mm TTS balloon. 2. Small hiatal hernia and LA grade a reflux esophagitis. 3. Mild gastritis. RECOMMENDATIONS: The findings of this examination were discussed with the patient as well as his family. She was advised to be on clear liquids for 2 hours. Continue with famotidine 20 mg twice daily and follow antireflux measures. Follow-up in the office in 6 weeks.
[2024-11-12 17:14] VITALS: BP 139/67; PULSE 68
== END 2024-11-12 17:25 | disposition home or self-care (01) ==
LOC: ORWHC2ENDO 14:19
PROVIDERS: ATTEND Internal Medicine Gastroenterology
DX: K22.2 Esophageal obstruction (principal); K29.70 Gastritis, unspecified, without bleeding; K21.00 Gastro-esophageal reflux disease with esophagitis, without bleeding; K44.9 Diaphragmatic hernia without obstruction or gangrene; I10 Essential (primary) hypertension; I25.2 Old myocardial infarction; E78.5 Hyperlipidemia, unspecified; J44.9 Chronic obstructive pulmonary disease, unspecified; J81.1 Chronic pulmonary edema; M19.90 Unspecified osteoarthritis, unspecified site; Z79.02 Long term (current) use of antithrombotics/antiplatelets; Z79.899 Other long term (current) drug therapy; Z85.3 Personal history of malignant neoplasm of breast; Z88.8 Allergy status to other drugs, medicaments and biological substances
CPT/HCPCS: 43249; J2704; C1726